=== PATIENT | male | born 1940 | race Caucasian/White ===

== ENCOUNTER 2019-02-08 16:39 | Emergency (ER) | payer OTHER, SELFPAY ==
[2019-02-08 16:50] VITALS: BP 131/71; PULSE 77; RESP 16; TEMP 37.2; O2SAT 97; BMI 26.4
--- NOTE | 2019-02-08 16:55 | DI.RAD.S_ITS ---
PROCEDURE: XR SHOULDER RT MIN 2V INDICATIONS: fall and hurt shoulder TECHNIQUE: 2 views of the shoulder were acquired. COMPARISON: None. FINDINGS: Bones: There is a comminuted, impacted, fracture of the proximal right humeral head. The humeral head is also anteriorly dislocated. Visualized portions of the ribs, scapula, and clavicle appear intact. Soft tissues: No suspicious soft tissue calcifications. IMPRESSION: Fracture dislocation of the right proximal humerus. Dictated by: Juana Carrillo M.D. on 02/08/2019 at 17:28 Approved by: Juana Carrillo M.D. on 02/08/2019 at 17:29
--- NOTE | 2019-02-08 17:03 | DI.CT.S_ITS ---
PROCEDURE: CT HEAD/BRAIN WO CON INDICATIONS: glf, thinners TECHNIQUE: Noncontrast 4.5 mm thick angled axial sections acquired from the foramen magnum to the vertex, with coronal and sagittal reformats. For radiation dose reduction, the following was used: automated exposure control, adjustment of mA and/or kV according to patient size. COMPARISON: None. FINDINGS: Image quality: Excellent. CSF spaces: Basal cisterns are patent. No extra-axial fluid collections. The ventricles are symmetric in size and shape. Brain: No intracranial bleeds or masses. There is cerebral volume loss for age, with resultant ventricular and sulcal prominence. There are periventricular and deep white matter chronic small vessel ischemic changes. There is intracranial internal carotid artery atherosclerosis. Skull and face: Calvarium and visualized facial bones appear intact, without suspicious lesions. Sinuses: Visualized sinuses and mastoids are clear. IMPRESSION: 1. No acute intracranial findings. 2. Findings likely associated with chronic microvascular ischemic change. Dictated by: Juana Carrillo M.D. on 02/08/2019 at 17:29 Approved by: Juana Carrillo M.D. on 02/08/2019 at 17:32
--- NOTE | 2019-02-08 17:21 | PC.NURSE ---
Transfer of care to EBONIE Corrales
[2019-02-08] MEDS: TET,DIPH,PERTUSS(ACELL),VAC/PF 0.5 ML SYRINGE IM (17:29)
[2019-02-08 18:07] LABS: Add Manual Diff / Slide Review NO; Basophils Absolute Auto 0 /uL (0-100); Basophils Percent Auto 0.2 % (0-2); Eosinophils Absolute Auto 100 /uL (0-450); Eosinophils Percent Auto 0.9 % (2-4); Hematocrit 43.5 % (41-53); Hemoglobin 14.9 g/dL (13.5-17.5); Lymphocytes Absolute Auto 600 /uL (1100-4500); Lymphocytes Percent Auto 7.7 % (25-40); Mean Corpuscular HGB Conc 34.2 % (30-36); Mean Corpuscular Hemoglobin 30.8 PG (26-34); Monocytes Absolute Auto 400 /uL (0-900); Monocytes Percent Auto 5.5 % (3-14); Neutrophils Absolute Auto 7000 /uL (1500-7000); Neutrophils Percent Auto 85.7 % (50-75); Platelet Count 142 X10^3/uL (150-400); Red Blood Cell Count 4.83 X10^6/uL (4.5-5.9); Red Cell Distribution Width 13.1 % (11.6-14.8); White Blood Cell Count 8.1 X10^3/uL (4.5-11.0)
[2019-02-08 18:12] LABS: Prothrombin Time 23.6 SECONDS (10.1-12.7)
[2019-02-08 18:14] LABS: PTT Partial Thromboplastin Tim 30 SECONDS (26.4-36.2)
[2019-02-08 18:19] LABS: Alanine Aminotransferase 30 IU/L (21-72); Albumin 4.6 g/dL (3.5-5.0); Albumin Globulin Ratio 1.5 (1.0-2.8); Alkaline Phosphatase 81 U/L (38-126); Aspartate Aminotransferase 31 IU/L (17-59); Bilirubin Total 0.8 mg/dL (0.2-1.3); Blood Urea Nitrogen 18 mg/dL (9-20); Calcium 9.6 mg/dL (8.4-10.2); Carbon Dioxide 30 mmol/L (22-32); Chloride 101 mmol/L (98-107); Estimated Glomerular Filt Rate 58.3 mL/min (>60); Glucose 106 mg/dL (80-110); HEMOLYSIS < 15 (0-50); Potassium 4.2 mmol/L (3.4-5.1); Sodium 140 mmol/L (137-145); Total Protein 7.6 g/dL (6.3-8.2)
[2019-02-08] MEDS: HYDROCODONE/ACET 5/325 TABLET 1 TAB PO (18:56)
[2019-02-08] MEDS: ONDANSETRON 4 MG ODT SL (18:56)
--- NOTE | 2019-02-08 19:33 | ED_ITS ---
HPI - Trauma <Denia AkhtarKUSH-BC - Last Filed: 02/08/19 21:29> General Chief Complaint: Extremity Injury, Upper Stated Complaint: Fall Time Seen by Provider: 02/08/19 16:52 Source: patient Mode of arrival: EMS Limitations: no limitations History of Present Illness HPI narrative: The patient is an 78-year-old male nonsmoker with history of cardiac stents on Coumadin who presents after falling down 1 step. He states he has some right shoulder pain, is not sure exactly what happened but states that he tripped. He states he had a mechanical fall. Denies any neck or back pain. He denies any obvious head injuries. He states he has cuts on his hands. He does not know when his last tetanus was. His primary complaint is shoulder pain. Given that the patient had a fall and is on Coumadin, a modified trauma was activated. Related Data Home Medications Medication Instructions Recorded Confirmed Glucosamine 1 tab PO BID 02/08/19 02/08/19 amlodipine 5 mg PO DAILY 02/08/19 02/08/19 cyclosporine [Restasis] 1 drp OPHTHALMIC (EYE) DIRECTED 02/08/19 02/08/19 gabapentin 300 mg PO DAILY 02/08/19 02/08/19 hydrocortisone 1 applic TOPICAL DIRECTED 02/08/19 02/08/19 levothyroxine 25 mcg PO DAILY 02/08/19 02/08/19 lovastatin 20 mg PO DAILY 02/08/19 02/08/19 metoprolol tartrate 25 mg PO BID 02/08/19 02/08/19 multivitamin 1 tab PO DAILY 02/08/19 02/08/19 omega 6-jdc-skv-fish oil [Fish Oil] 1 cap PO BID 02/08/19 02/08/19 pramipexole 0.125 mg PO BEDTIME 02/08/19 02/08/19 terazosin 10 mg PO BEDTIME 02/08/19 02/08/19 warfarin 5 mg PO SUTH 02/08/19 02/08/19 warfarin 7.5 mg PO MOTUWEFRSA 02/08/19 02/08/19 Previous Rx's Medication Instructions Recorded hydrocodone-acetaminophen [[place]] 1 tab PO Q4-6H PRN #10 tab 02/08/19 ondansetron 4 mg PO Q6H PRN #20 tab 02/08/19 Allergies Allergy/AdvReac Type Severity Reaction Status Date / Time No Known Drug Allergies Allergy Verified 02/08/19 18:55 Review of Systems <LUANN Navarro - Last Filed: 02/08/19 21:29> Review of Systems Narrative: GENERAL: Denies chills, fatigue, malaise, fever, sweats. HEENT: Denies sinus pain, ear pain, sore throat, difficulty swallowing, dizziness. RESPIRATORY: Denies dyspnea, cough, wheezing, hemoptysis, sputum. CARDIOVASCULAR: Denies chest pain, palpitations, orthopnea, edema, GASTROINTESTINAL: Denies nausea, vomiting, abdominal pain, diarrhea, constipation, melena. : Denies dysuria, frequency, incontinence, hematuria, urinary retention. MUSCULOSKELETAL: See HPI SKIN: See HPI NEUROLOGIC: Denies weakness, headache, numbness, change in speech, confusion, seizures, incoordination. PSYCHIATRIC: No concerning psychosocial issues. 12 point review of systems is negative except for those stated above Patient History <LUANN Navarro - Last Filed: 02/08/19 21:29> Medical History (Updated 02/08/19 @ 21:20 by LUANN Navarro) Hypertension (Acute) Surgical History (Updated 02/08/19 @ 21:20 by LUANN Navarro) History of heart artery stent (Acute) Exam <LUANN Navarro - Last Filed: 02/08/19 21:29> Narrative Exam Narrative: GENERAL: This is a well-nourished, well-developed patient, in no acute distress HEAD: Atraumatic. Normocephalic. No temporal or scalp tenderness. EYES: Pupils equal round and reactive. Extraocular motions intact. No scleral icterus. No injection or drainage. ENT: Nose without bleeding, purulent drainage or septal hematoma. Throat without erythema, tonsillar hypertrophy or exudate. Uvula midline. Airway patent. NECK: Trachea midline. No JVD or lymphadenopathy. Supple, nontender, no menin geal signs. CARDIOVASCULAR: Regular rate and rhythm RESPIRATORY: Clear to auscultation. Breath sounds equal bilaterally. No wheezes, rales, or rhonchi. No cough. No increased respiratory effort. No accessory muscle use. No pain to palpation of ribs. No pain to anterior posterior chest wall compression or lateral chest wall compression GASTROINTESTINAL: Abdomen soft, non-tender, nondistended. No hepato- splenomegaly, or palpable masses. No guarding. EXTREMITIES: Pain to palpation of right shoulder. No pain to palpation right elbow, wrist or hand. Full strength right hand. Able to flex and extend right wrist. BACK: Nontender without deformity or crepitance. No flank tenderness. No pain to CT or L-spine palpation. NEURO: AOx3. No slurred speech. Cranial nerves grossly intact. Strength is equal upper and lower extremities bilaterally. SKIN: No ecchymosis noted over right shoulder. Multiple abrasions noted on right hand. Finger has abrasion at hip, with 2 mm of nail removed. Initial Vital Signs Initial Vital Signs: Vital Signs Temperature 98.9 F 02/08/19 16:50 Pulse Rate 77 02/08/19 16:50 Respiratory Rate 16 02/08/19 16:50 Blood Pressure 131/71 02/08/19 16:50 Pulse Oximetry 97 02/08/19 16:50 <Dajuan Carroll MD - Last Filed: 02/19/19 18:20> Initial Vital Signs Initial Vital Signs: Vital Signs Temperature 98.9 F 02/08/19 16:50 Pulse Rate 77 02/08/19 16:50 Respiratory Rate 16 02/08/19 16:50 Blood Pressure 131/71 02/08/19 16:50 Pulse Oximetry 97 02/08/19 16:50 Procedures <LUANN Navarro - Last Filed: 02/08/19 21:29> Orthopedic Splinting/Casting Injury #1: Side: right Upper Extremity Injury Location: shoulder Upper Extremity Immobilizer: sling/shoulder immobilizer (Sling and coaptat ion splint) Post splinting neuro exam: intact Post splinting vascular exam: intact Placed by: Nursing Scores <LUANN Navarro - Last Filed: 02/08/19 21:29> GCS Crockett coma scale eye opening: Spontaneous Evette coma scale verbal response: Orientated Crockett coma scale motor response: Obey commands Crockett coma scale total score: 15 Nexus Score for C-Spine Focal Neurologic deficit present: No Midline spinal tenderness present: No Altered level of conciousness present: No Intoxication present: No Distracting Injury Present: No Nexus Criteria for C-spine: 0 Course <LUANN Navarro - Last Filed: 02/08/19 21:29> Orders Ordered: Discontinued Medications Hydrocodone Bitart/Acetaminophen ([place] 5/325) 1 tab PO NOW ONE Stop: 02/08/19 18:48 Last Admin: 02/08/19 18:56 Dose: 1 tab Documented by: ETELVINA Diphtheria/Tetanus/Acell Pertussis (Adacel) 0.5 ml IM .ONCE ONE Stop: 02/08/19 17:04 Last Admin: 02/08/19 17:29 Dose: 0.5 ml Documented by: MABLE Ondansetron HCl (Zofran Odt) 4 mg SL NOW ONE Stop: 02/08/19 18:48 Last Admin: 02/08/19 18:56 Dose: 4 mg Documented by: ETELVIAN Vital Signs Vital signs: Vital Signs - 8 hr 02/08/19 16:50 02/08/19 19:49 Temperature 98.9 F Pulse Rate 77 88 Respiratory Rate 16 12 Blood Pressure 131/71 143/84 H Pulse Oximetry 97 96 <Dajuan Carroll MD - Last Filed: 02/19/19 18:20> Orders Ordered: Discontinued Medications Hydrocodone Bitart/Acetaminophen ([place] 5/325) 1 tab PO NOW ONE Stop: 02/08/19 18:48 Last Admin: 02/08/19 18:56 Dose: 1 tab Documented by: ETELVINA Diphtheria/Tetanus/Acell Pertussis (Adacel) 0.5 ml IM .ONCE ONE Stop: 02/08/19 17:04 Last Admin: 02/08/19 17:29 Dose: 0.5 ml Documented by: MABLE Ondansetron HCl (Zofran Odt) 4 mg SL NOW ONE Stop: 02/08/19 18:48 Last Admin: 02/08/19 18:56 Dose: 4 mg Documented by: ETELVINA Vital Signs Vital signs: Vital Signs - 8 hr 02/08/19 16:50 02/08/19 19:49 Temperature 98.9 F Pulse Rate 77 88 Respiratory Rate 16 12 Blood Pressure 131/71 143/84 H Pulse Oximetry 97 96 MDM - Trauma <LUANN Navarro - Last Filed: 02/08/19 21:29> Lab Data Result diagrams: 02/08/19 17:58 02/08/19 17:58 Labs: Lab Results 02/08/19 02/08/19 02/08/19 Range/Units 17:58 17:58 17:58 WBC 8.1 (4.5-11.0) X10^3/uL RBC 4.83 (4.5-5.9) X10^6/uL Hgb 14.9 (13.5-17.5) g/dL Hct 43.5 (41-53) % MCV 90.0 (80-100) fL MCH 30.8 (26-34) PG MCHC 34.2 (30-36) % RDW 13.1 (11.6-14.8) % Plt Count 142 L (150-400) X10^3/uL Neut % (Auto) 85.7 H (50-75) % Lymph % (Auto) 7.7 L (25-40) % Harmon % (Auto) 5.5 (3-14) % Eos % (Auto) 0.9 L (2-4) % Baso % (Auto) 0.2 (0-2) % Neut # (Auto) 7000 (1400-4139) /uL Lymph # (Auto) 600 L (7000-7429) /uL Harmon # (Auto) 400 (0-900) /uL Eos # (Auto) 100 (0-450) /uL Baso # (Auto) 0 (0-100) /uL PT 23.6 H (10.1-12.7) SECONDS INR 2.0 H (0.9-1.3) APTT 30 (26.4-36.2) SECONDS Sodium 140 (137-145) mmol/L Potassium 4.2 (3.4-5.1) mmol/L Chloride 101 (98-107) mmol/L Carbon Dioxide 30 (22-32) mmol/L BUN 18 (9-20) mg/dL Creatinine 1.20 (0.66-1.25) mg/dL Estimated GFR 58.3 L (>60) mL/min BUN/Creatinine Ratio 15.0 (6-22) Glucose 106 (80-110) mg/dL Calcium 9.6 (8.4-10.2) mg/dL Total Bilirubin 0.8 (0.2-1.3) mg/dL AST 31 (17-59) IU/L ALT 30 (21-72) IU/L Alkaline Phosphatase 81 (38-126) U/L Total Protein 7.6 (6.3-8.2) g/dL Albumin 4.6 (3.5-5.0) g/dL Globulin 3.0 (1.7-4.1) g/dL Albumin/Globulin Ratio 1.5 (1.0-2.8) Imaging Data CT scan - head: Radiologist's impression: [address] [id number] [address] Scan Report Signed Patient: Patrice PenalozaMR#: [id number] : 9Acct:[id number] Age/Sex: 78 / MDate of Service: 02/08/19 Loc: ED Accession Number: [id number] Procedure: CT head/brain wo con Ordering Provider: Denia Akhtar [employer] NURSERY TRANSPLANTER- PROCEDURE: CT HEAD/BRAIN WO CON INDICATIONS: glf, thinners TECHNIQUE: Noncontrast 4.5 mm thick angled axial sections acquired from the foramen magnum to the vertex, with coronal and sagittal reformats. For radiation dose reduction, the following was used: automated exposure control, adjustment of mA and/or kV according to patient size. COMPARISON: None. FINDINGS: Image quality: Excellent. CSF spaces: Basal cisterns are patent. No extra-axial fluid collections. The ventricles are symmetric in size and shape. Brain: No intracranial bleeds or masses. There is cerebral volume loss for age, with resultant ventricular and sulcal prominence. There are periventricular and deep white matter chronic small vessel ischemic changes. There is intracranial internal carotid artery atherosclerosis. Skull and face: Calvarium and visualized facial bones appear intact, without suspicious lesions. Sinuses: Visualized sinuses and mastoids are clear. IMPRESSION: 1. No acute intracranial findings. 2. Findings likely associated with chronic microvascular ischemic change. Dictated by: Juana Carrillo M.D. on 02/08/2019 at 17:29 Approved by: Juana Carrillo M.D. on 02/08/2019 at 17:32 Shoulder x-ray: Radiologist's impression: [address] [address] XRay Report Signed Patient: Juliana Penaloza#: [id number] : 9Acct:[id number] Age/Sex: 78 / MDate of Service: 02/08/19 Loc: ED Accession Number: [id number] Procedure: XR shoulder RT min 2V Ordering Provider: Denia Akhtar PROCEDURE: XR SHOULDER RT MIN 2V INDICATIONS: fall and hurt shoulder TECHNIQUE: 2 views of the shoulder were acquired. COMPARISON: None. FINDINGS: Bones: There is a comminuted, impacted, fracture of the proximal right humeral head. The humeral head is also anteriorly dislocated. Visualized portions of the ribs, scapula, and clavicle appear intact. Soft tissues: No suspicious soft tissue calcifications. IMPRESSION: Fracture dislocation of the right proximal humerus. Dictated by: Juana Carrillo M.D. on 02/08/2019 at 17:28 Approved by: Juana Carrillo M.D. on 02/08/2019 at 17:29 MDM Narrative Medical decision making narrative: The patient is an 78-year-old male who presents with a chief complaint of injuries after a fall down 1 step. His C- spine was cleared by nexus criteria. Given that he is on Coumadin, a modified trauma was obtained. His head CT shows no acute abnormalities. The patient declines any further imaging at this point today. He states that nothing hurts compared to his shoulder. His INR is 2 today. His shoulder x-ray illustrate a comminuted impacted fracture of the proximal right humeral head with anterior dislocation. Images were reviewed with Dr. Carroll, who suggested splint and orthopedic follow-up. I spoke with Dr. Chin from [facility] who agrees with coaptation splint and orthopedic follow-up. I gave the patient a prescription of [place] as well as Zofran for pain. He is able to flex and extend his right hand and wrist. I discussed monitoring for decreased range of motion and was very explicit regarding resting his arm. He was in a sling. He is neurovascularly intact. His wounds were dressed and his tetanus is updated. I discussed at length follow up with primary care provider. The patient states understanding of return precautions of any acute concerns as well as follow-up instructions. He was discharged to his daughter and have no questions or concerns upon discharge and state understanding of return precautions as well as follow-up care. <Dajuan Carroll MD - Last Filed: 02/19/19 18:20> Lab Data Labs: Lab Results 02/08/19 02/08/19 02/08/19 Range/Units 17:58 17:58 17:58 WBC 8.1 (4.5-11.0) X10^3/uL RBC 4.83 (4.5-5.9) X10^6/uL Hgb 14.9 (13.5-17.5) g/dL Hct 43.5 (41-53) % MCV 90.0 (80-100) fL MCH 30.8 (26-34) PG MCHC 34.2 (30-36) % RDW 13.1 (11.6-14.8) % Plt Count 142 L (150-400) X10^3/uL Neut % (Auto) 85.7 H (50-75) % Lymph % (Auto) 7.7 L (25-40) % Harmon % (Auto) 5.5 (3-14) % Eos % (Auto) 0.9 L (2-4) % Baso % (Auto) 0.2 (0-2) % Neut # (Auto) 7000 (4613-4700) /uL Lymph # (Auto) 600 L (0495-6259) /uL Harmon # (Auto) 400 (0-900) /uL Eos # (Auto) 100 (0-450) /uL Baso # (Auto) 0 (0-100) /uL PT 23.6 H (10.1-12.7) SECONDS INR 2.0 H (0.9-1.3) APTT 30 (26.4-36.2) SECONDS Sodium 140 (137-145) mmol/L Potassium 4.2 (3.4-5.1) mmol/L Chloride 101 (98-107) mmol/L Carbon Dioxide 30 (22-32) mmol/L BUN 18 (9-20) mg/dL Creatinine 1.20 (0.66-1.25) mg/dL Estimated GFR 58.3 L (>60) mL/min BUN/Creatinine Ratio 15.0 (6-22) Glucose 106 (80-110) mg/dL Calcium 9.6 (8.4-10.2) mg/dL Total Bilirubin 0.8 (0.2-1.3) mg/dL AST 31 (17-59) IU/L ALT 30 (21-72) IU/L Alkaline Phosphatase 81 (38-126) U/L Total Protein 7.6 (6.3-8.2) g/dL Albumin 4.6 (3.5-5.0) g/dL Globulin 3.0 (1.7-4.1) g/dL Albumin/Globulin Ratio 1.5 (1.0-2.8) Discharge Plan Departure Patient Disposition: Home Clinical Impression: Abrasion Fall down stairs Qualifiers: Encounter type: initial encounter Qualified Code(s): W10.8XXA - Fall (on) (from) other stairs and steps, initial encounter Fracture, humerus Qualifiers: Encounter type: initial encounter Humerus Location: proximal Fracture type: closed Fracture morphology: other fracture Fracture alignment: displaced Laterality: left Qualified Code(s): S42.292A - Other displaced fracture of upper end of left humerus, initial encounter for closed fracture Discharge Date/Time: 02/08/19 19:50 Instructions: How to Use a Sling, DI for Fracture, How To Perform RICE (Rest, Ice, Compress, Elevate), How to Prevent Falls, How to Take Care of Your Splint, DI for Humeral Fracture Activity Restrictions/Additional Instructions: As I discussed, you broke your arm today. Please follow up with primary care provider as well as [facility]. Please keep your arm in the sling and splint. I spoke with Dr. Chin from [facility] today. Regarding your fracture today. Please follow up with primary care provider as well. I have given her prescription of [place], which can be constipating and sedating. I have also given her prescription of Zofran in case of nausea. Please come back to the emergency department for any acute concerns such as concerned about circulation to her hand, chest pain shortness of breath etc Prescriptions: New hydrocodone-acetaminophen [[place]] 5-325 mg tablet 1 tab PO Q4-6H PRN (Reason: pain) Qty: 10 RF: 0 ondansetron 4 mg tablet,disintegrating 4 mg PO Q6H PRN (Reason: nausea and vomiting) Qty: 20 RF: 0 No Action lovastatin 40 mg Tablet 20 mg PO DAILY RF: 0 warfarin 2.5 mg Tablet 7.5 mg PO MOTUWEFRSA RF: 0 amlodipine 5 mg Tablet 5 mg PO DAILY RF: 0 levothyroxine 25 mcg Tablet 25 mcg PO DAILY RF: 0 metoprolol tartrate 50 mg Tablet 25 mg PO BID RF: 0 pramipexole 0.125 mg Tablet 0.125 mg PO BEDTIME RF: 0 hydrocortisone 2.5 % Ointment 1 applic TOPICAL DIRECTED RF: 0 Restasis 0.05 % Dropperette 1 drp OPHTHALMIC (EYE) DIRECTED RF: 0 multivitamin Tablet 1 tab PO DAILY RF: 0 warfarin 2.5 mg Tablet 5 mg PO SUTH RF: 0 gabapentin 300 mg Capsule 300 mg PO DAILY RF: 0 terazosin 10 mg Capsule 10 mg PO BEDTIME RF: 0 omega 1-sbf-flp-fish oil [Fish Oil] 1,000 mg (120 mg-180 mg) Capsule 1 cap PO BID RF: 0 Glucosamine 1 tab PO BID RF: 0 Referrals: [facility] [Provider Group]
--- NOTE | 2019-02-08 19:47 | PC.NURSE ---
Bandaged patient's right middle finger with tube gauze. Bleeding controlled.
[2019-02-08 19:49] VITALS: BP 143/84; PULSE 88; RESP 12; O2SAT 96
== END 2019-02-08 19:50 | disposition home or self-care (01) ==
PROVIDERS: Emergency Provider Nurse Practitioner Family
DX: S42.292A Other displaced fracture of upper end of left humerus, initial encounter for closed fracture (principal); S60.511A Abrasion of right hand, initial encounter; S60.419A Abrasion of unspecified finger, initial encounter; W10.9XXA Fall (on) (from) unspecified stairs and steps, initial encounter; Z23 Encounter for immunization
CPT/HCPCS: 36415; 70450; 73030; 80053; 85025; 85610; 85730; 90471; 99282; 99284; 90715

== ENCOUNTER → 2019-03-20 14:21 | Outpatient (ROUT) | payer OTHER, SELFPAY ==
[2019-03-20 14:35] LABS: BUN Creatinine Ratio 11.8 (6-22); Blood Urea Nitrogen 13 mg/dL (9-20); Calcium 9.9 mg/dL (8.4-10.2); Carbon Dioxide 28 mmol/L (22-32); Chloride 103 mmol/L (98-107); Estimated Glomerular Filt Rate > 60.0 mL/min (>60); Glucose 72 mg/dL (80-110); HEMOLYSIS < 15 (0-50); Potassium 4.5 mmol/L (3.4-5.1); Sodium 142 mmol/L (137-145)
[2019-03-20 15:05] LABS: TSH w/ Reflex to FT4 0.96 uIU/mL (0.47-4.68)
[2019-03-20 15:33] LABS: Vitamin B12 650 pg/mL (239-931)
== END ==
PROVIDERS: Visit Provider Internal Medicine
DX: R20.0 Anesthesia of skin (principal)
CPT/HCPCS: 80048; 82607; 84443

== ENCOUNTER → 2019-04-26 11:00 | Outpatient (CLI) | payer MEDICARE, SELFPAY ==
--- NOTE | 2019-04-26 | DI.RAD.S_ITS ---
PROCEDURE: XR CERVICAL SPINE 2V OR 3V INDICATIONS: Cervicalgia TECHNIQUE: 4 view(s) of the cervical spine were acquired. COMPARISON: None. FINDINGS: Bones: No fractures or dislocations to the T1 level. The lateral masses of C1 appear intact on the odontoid view. No suspicious bony lesions. Loss of lordosis which could be related to muscle spasm, rigidity or simply positional. Multilevel disc degeneration, most notably and moderate at C5-C6, C6-C7 and C7-T1 levels. Mild multilevel uncovertebral hypertrophy. Soft tissues: No prevertebral soft tissue swelling. IMPRESSION: Multilevel spondylosis, most notably at the C5-C6, C6-C7 and C7-T1 levels. Dictated by: Jerson Jon [facility] Interpreted: Radha Jackson MD on 04/26/2019 at 16:40 Approved by: Radha Jackson MD, PhD on 04/26/2019 at 17:12
== END ==
PROVIDERS: PCP Student in an Organized Health Care Education/Training Program; Visit Provider Student in an Organized Health Care Education/Training Program
DX: M54.2 Cervicalgia (principal); M47.812 Spondylosis without myelopathy or radiculopathy, cervical region
CPT/HCPCS: 72040

== ENCOUNTER → 2020-07-03 12:11 | Outpatient (CLI) | payer OTHER, SELFPAY ==
--- NOTE | 2020-07-03 | DI.US.S_ITS ---
PROCEDURE: US ABDOMEN LIMITED INDICATIONS: INTERMITTENT LEFT GROIN LUMP TECHNIQUE: Real-time focused scanning was performed of the abdomen, with image documentation. COMPARISON: None. FINDINGS: There is a left groin hernia measuring 1.4 cm, and 4.8 x 1.4 x 2.5 cm fluid-filled bowel loop is seen within the hernia sac. IMPRESSION: Left groin hernia in the area of palpable abnormality, which contains a loop of bowel. This could be further assessed with dedicated CT as clinically necessary. Dictated by: Tate Payan M.D. on 07/03/2020 at 16:33 Approved by: Tate Payan M.D. on 07/03/2020 at 16:35
== END ==
PROVIDERS: PCP Student in an Organized Health Care Education/Training Program; Referring Provider Student in an Organized Health Care Education/Training Program; Visit Provider Student in an Organized Health Care Education/Training Program
DX: R19.09 Other intra-abdominal and pelvic swelling, mass and lump (principal); K46.9 Unspecified abdominal hernia without obstruction or gangrene
CPT/HCPCS: 76705

== ENCOUNTER → 2020-08-11 09:22 | Outpatient (CLI) | payer OTHER, SELFPAY ==
[2020-08-11 15:00] LABS: COVID19 -Nasal RAPID Negative (Negative)
== END ==
PROVIDERS: PCP Student in an Organized Health Care Education/Training Program; Visit Provider Specialist
DX: Z20.822 Contact with and (suspected) exposure to COVID-19 (principal)
CPT/HCPCS: 87635; C9803

== ENCOUNTER 2020-08-13 07:34 | Day surgery (SDC) | payer OTHER, SELFPAY ==
[2020-08-08 13:26] VITALS: BMI 24.4
[2020-08-13] VITALS (12 sets, daily range): BP systolic 119–138; BP diastolic 68–86; PULSE 73–797; RESP 12–18; TEMP 36.3–37; O2SAT 94–98; BMI 23.3
[2020-08-13] MEDS: LACTATED RINGERS 1,000 ML 42 ML IV (08:16)
--- NOTE | 2020-08-13 08:43 | PM.PREOP ---
Pre-operative Note COVID-19 COVID-19 status: Negative Result date/Date tested (Pos, Neg/Pending): 08/12/20 Interval Note History & Physical reviewed/Exam performed by Physician: Yes Changes to H&P: Yes H&P completed within 30 days and has changed as indicated here:: INR is 1.2
[2020-08-13] MEDS: CEFAZOLIN 2 GM/100 ML FROZ.PIGGY IV (08:50)
--- NOTE | 2020-08-13 09:16 | SUR.OPER ---
Supine on padded OR bed, head on pillow, arms secured on padded arm boards at <90 degrees abduction, legs uncrossed, safety belt at thigh, tape over blanket over lower legs.
[2020-08-13] MEDS: BUPIVACAINE 0.5% (PF) VIAL 30 ML INJ (09:22)
--- NOTE | 2020-08-13 11:11 | PM.OP.1 ---
Operative Date/Time/Diagnoses Date of procedure: 08/13/20 Time of procedure: 11:11 Pre-op diagnosis: Bilateral reducible inguinal hernias Post-op diagnosis: same (Direct hernias) Procedure & Clinicians Procedure: Open repair with plug and patch technique Same procedure as scheduled: Yes Indications: Symptomatic hernias Surgeon: Ritesh Soriano Click Yes if Unassisted: Yes Anesthesia Type: General Operative Notes Findings: Direct hernias Closure Type: primary Specimen(s): none sent Prosthetic devices, grafts, tissues, transplants, or devices: Mesh. Medium plug on the right. Large plug on the left Estimated Blood Loss (mL): 7 Blood products transfused: none Procedure in detail: Patient was placed supine on the operating room table and underwent general LMA anesthesia. He was prepped and draped in the usual fashion. Local anesthetic was infiltrated and a transverse incision made overlying the internal ring in the right lower quadrant. Was carried down to the level the external oblique. The external oblique was opened parallel with the fibers through the external ring. Cord structures were elevated. The cremaster was opened proximally and a search was made for an indirect sac. None was found. The floor however was quite obliterated and fat protruding up through. I opened the Gossom her thin floor and dissected the fat off the overlying tissues. The preperitoneal fat was reduced and a medium plug placed in the defect. Was tacked into place with interrupted Ethibond suture. The floor was closed over this plug with interrupted [id number] 0 0 Ethibond. Patch was placed across the floor. It was tacked to the pubic tubercle, the posterior lamella the anterior rectus sheath, the inguinal ligament, and superior and lateral the cord. External oblique was closed with a running 3-0 Vicryl. The subQ was closed with interrupted 3 0 Vicryl and the skin was closed with 4-0 Vicryl subcuticular stitches placed in a running fashion. A mirror incision was made in the left lower quadrant and in identical operation proceeded. The findings were nearly identical except there was more obliteration of the floor on the left than the right and therefore large plug was placed in the defect of the floor. Otherwise the operation proceeded identically. Closure was in an identical fashion. Local anesthetic was infiltrated at completion in both incisions. Mastisol and Steri-Strips were applied as was a dressing. Testes were pulled down and the patient was taken extubated into the recovery room in good condition. Complications: none Post-operative Condition: stable Disposition: PACU
[2020-08-13] MEDS: ONDANSETRON 4 MG/2 ML INJ IV (11:50)
[2020-08-13] MEDS: OXYCODONE/ACETAMINOPHEN 5/325 TABLET 1 TAB PO ×2 (11:53→12:28)
== END 2020-08-13 12:35 | disposition home or self-care (01) ==
PROVIDERS: PCP Student in an Organized Health Care Education/Training Program; Referring Provider Student in an Organized Health Care Education/Training Program; Visit Provider Specialist
PROC: (CPT 49505; principal; 2020-08-13 08:45)
DX: K40.20 Bilateral inguinal hernia, without obstruction or gangrene, not specified as recurrent (principal); I10 Essential (primary) hypertension; E03.9 Hypothyroidism, unspecified; I25.10 Atherosclerotic heart disease of native coronary artery without angina pectoris; Z79.01 Long term (current) use of anticoagulants
CPT/HCPCS: 49505; 85610; C1781; J0690; J2405; J2704; J3010

== ENCOUNTER 2020-08-14 22:17 | Emergency (ER) | payer OTHER, SELFPAY ==
[2020-08-14 22:38] VITALS: BP 133/68; PULSE 97; RESP 15; TEMP 37.1; O2SAT 96; BMI 23.7
[2020-08-14] MEDS: LIDOCAINE 2% (GLYDO) 6 ML GEL TOP (22:38)
--- NOTE | 2020-08-14 23:01 | ED_ITS ---
HPI - Male Genitourinary General Chief complaint: Urogenital-Male Stated complaint: unable to urinate s/p surgery Time Seen by Provider: 08/14/20 22:26 Source: patient Mode of arrival: Ambulatory Limitations: no limitations History of Present Illness HPI Narrative: 80-year-old gentleman with a history of hypertension, hypercholesterolemia, hypothyroidism with bilateral inguinal hernia repair yesterday. Presents with acute urinary retention and believes his last void was minimal and very early this morning. He is having increasing abdominal distention and pain. He notes that he has had a similar episode a number of years ago and did have a Pizarro catheter in place for approximately a week but has not otherwise had difficulties with his prostate. Related Data Home Medications Medication Instructions Recorded Confirmed Glucosamine 1 tab PO BID 02/08/19 08/08/20 Restasis 1 drp OPHTHALMIC (EYE) DIRECTED 02/08/19 08/08/20 amlodipine 5 mg PO DAILY 02/08/19 08/08/20 gabapentin 300 mg PO DAILY 02/08/19 08/08/20 hydrocortisone 1 applic TOPICAL DIRECTED 02/08/19 08/08/20 levothyroxine 25 mcg PO DAILY 02/08/19 08/08/20 lovastatin 20 mg PO DAILY 02/08/19 08/08/20 metoprolol tartrate 25 mg PO BID 02/08/19 08/08/20 multivitamin 1 tab PO DAILY 02/08/19 08/08/20 omega 4-vku-ldn-fish oil [Fish Oil] 1 cap PO BID 02/08/19 08/08/20 pramipexole 0.125 mg PO BEDTIME 02/08/19 08/08/20 terazosin 10 mg PO BEDTIME 02/08/19 08/08/20 Previous Rx's Medication Instructions Recorded oxycodone See Rx Instructions .ROUTE 08/13/20 .COMPLEX PRN #20 tab tamsulosin [Flomax] 0.4 mg PO DAILY #30 cap 08/14/20 Allergies Allergy/AdvReac Type Severity Reaction Status Date / Time No Known Drug Allergies Allergy Verified 08/13/20 08:16 Review of Systems Review of Systems Narrative: Pertinent positive and negative findings as per HPI Remainder of review of systems is otherwise unremarkable for Constitutional: Fevers, chills, weakness ENT: No sore throat, neck pain, ear pain CV: Chest pain, palpitations, dyspnea on exertion Respiratory: Cough, wheeze, dyspnea GI: Nausea, vomiting, diarrhea, Patient History Medical History Bilateral inguinal hernia without obstruction or gangrene Easy bruisability Fracture of head of right humerus (02/08/19) HLD (hyperlipidemia) HX: anticoagulation Hypertension Hypothyroidism Surgical History History of heart artery stent (~2003) Family History Mother Cancer Social History marital status: household members: spouse Smoking Status: Former smoker alcohol intake: never substance use type: does not use Smoking Status: Former smoker Substance Use Type: does not use Exam Narrative Exam Narrative: General: Alert appropriate in no acute distress Respiratory: Able to speak in full sentences, no obvious respiratory distress Skin: No obvious rashes, warm and dry Surgical sites are clean and dry. Abdomen is slightly distended and mildly tender in the suprapubic area. Neurologic: Grossly intact no obvious asymmetries or abnormalities Psych: appropriate insight and affect, cooperative Bladder scan at the bedside suggests greater than a L of fluid in the bladder Initial Vital Signs Initial Vital Signs: Vital Signs Temperature 98.7 F 08/14/20 22:38 Pulse Rate 97 H 08/14/20 22:38 Respiratory Rate 15 08/14/20 22:38 Blood Pressure 133/68 08/14/20 22:38 Pulse Oximetry 96 08/14/20 22:38 Course Orders Ordered: Discontinued Medications Lidocaine HCl (Lidocaine Jelly 2% 5 Ml) 1 applic TOP NOW ONE Stop: 08/14/20 22:33 Lidocaine HCl (Lidocaine 2% (Glydo) 6 Ml Gel) 6 ml TOP NOW ONE Stop: 08/14/20 22:37 Vital Signs Vital signs: Vital Signs - 8 hr 08/14/20 22:38 Temperature 98.7 F Pulse Rate 97 H Respiratory Rate 15 Blood Pressure 133/68 Pulse Oximetry 96 [facility] - Male Genitourinary Medical Records Attestation: I reviewed the patient's medical records. [facility] Narrative Medical decision making narrative: 80-year-old gentleman with acute urinary retention after surgical procedure yesterday. Pizarro catheter is placed without difficulty and 1650cc of clear urine is immediately returned. Distension and pain symptoms are significantly improved. He will be discharged home with Flomax daily and follow-up with his primary care physician to remove the catheter in about a week and discussed the continued use of Flomax. He is safe for home discharge Discharge Plan Departure Patient Disposition: Home Clinical Impression: Acute retention of urine Instructions: DI for Urinary Retention in Men Activity Restrictions/Additional Instructions: Thank you for coming in today It is not uncommon to have some prostate problems and urinary retention after surgery. You had 1650 cc of urine in your bladder when the Pizarro catheter was placed You have been given a dose of Flomax/tamsulosin in the emergency department. Please continue this medication to help reduce some of the inflammation in your prostate. Schedule an appointment with your primary care physician in about a week. They can help take the Pizarro catheter out. Being on the Flomax will increase the chances that you will be able to go to the bathroom spontaneously. Please discuss the continued use of Flomax with your primary care physician. If you have fevers, chills, back or flank pain, or note additional problems with the catheter, please feel free to return to the emergency department Prescriptions: New tamsulosin [Flomax] 0.4 mg capsule 0.4 mg PO DAILY Qty: 30 RF: 0 No Action lovastatin 40 mg Tablet 20 mg PO DAILY RF: 0 amlodipine 5 mg Tablet 5 mg PO DAILY RF: 0 levothyroxine 25 mcg Tablet 25 mcg PO DAILY RF: 0 metoprolol tartrate 50 mg Tablet 25 mg PO BID RF: 0 pramipexole 0.125 mg Tablet 0.125 mg PO BEDTIME RF: 0 hydrocortisone 2.5 % Ointment 1 applic TOPICAL DIRECTED RF: 0 Restasis 0.05 % Dropperette 1 drp OPHTHALMIC (EYE) DIRECTED RF: 0 multivitamin Tablet 1 tab PO DAILY RF: 0 gabapentin 300 mg Capsule 300 mg PO DAILY RF: 0 terazosin 10 mg Capsule 10 mg PO BEDTIME RF: 0 omega 8-qvl-rru-fish oil [Fish Oil] 1,000 mg (120 mg-180 mg) Capsule 1 cap PO BID RF: 0 Glucosamine 1 tab PO BID RF: 0 oxycodone 5 mg tablet See Rx Instructions .ROUTE .COMPLEX PRN (Reason: painful procedure) Qty: 20 RF: 0 Referrals: Rosi Jesus PA-C [Primary Care Provider] -
== END 2020-08-14 23:20 | disposition home or self-care (01) ==
PROVIDERS: Emergency Provider Emergency Medicine; PCP Student in an Organized Health Care Education/Training Program
DX: R33.8 Other retention of urine (principal)
CPT/HCPCS: 51701; 51798; 99283

== ENCOUNTER 2020-08-18 11:47 | Observation (INO) | payer OTHER, SELFPAY ==
[2020-08-18] VITALS (14 sets, daily range): BP systolic 109–146; BP diastolic 69–93; PULSE 71–87; RESP 15–25; TEMP 36.4–37.2; O2SAT 95–98; BMI 23.7; BMI 24.0
--- NOTE | 2020-08-18 | DI.US.S_ITS ---
PROCEDURE: US CAROTID DOPPLER BI INDICATIONS: ?CEREBRAL VASCULAR ACCIDENT TECHNIQUE: Color and pulse Doppler interrogation was performed of both carotid systems, with image documentation and velocity measurements. COMPARISON: None. FINDINGS: Stenosis calculations are based on SRU (Society of Radiologists in Ultrasound) criteria. Right side: Common carotid artery peak systolic velocity: 60 cm/sec. Internal carotid artery peak systolic velocity: 78 cm/sec. Internal carotid artery end diastolic velocity: 35 cm/sec. External carotid artery peak systolic velocity: 75 cm/sec. ICA/CCA peak systolic ratio: 1.3. Irvin scale imaging description: Mild scattered calcified atherosclerotic plaque is seen at the carotid bifurcation. Percent internal carotid artery stenosis: Less than 50 %. Vertebral artery: Flow direction is antegrade. Left side: Common carotid artery peak systolic velocity: 55 cm/sec. Internal carotid artery peak systolic velocity: 62 cm/sec. Internal carotid artery end diastolic velocity: 24 cm/sec. External carotid artery peak systolic velocity: 66 cm/sec. ICA/CCA peak systolic ratio: 1.1. Irvin scale imaging description: Mild calcified atherosclerotic plaque is seen in the common carotid artery and the carotid bifurcation. Percent internal carotid artery stenosis: Less than 50 %. Vertebral artery: Flow direction is antegrade. IMPRESSION: No hemodynamically significant stenosis in the carotid arteries bilaterally. Antegrade flow in the vertebral arteries. Dictated by: Gus Gonzales M.D. on 08/18/2020 at 19:04 Approved by: Gus Gonzales M.D. on 08/18/2020 at 19:08
--- NOTE | 2020-08-18 11:54 | ED.NEUROSD ---
HPI - Neuro Symptoms/Deficit General Chief Complaint: Neuro Symptoms/Deficit Stated Complaint: possible cva from walk in clinic Time Seen by Provider: 08/18/20 11:49 Source: patient Mode of arrival: Wheelchair Limitations: no limitations History of Present Illness HPI Narrative: 80-year-old male former smoker with history of AFib on Coumadin (recently stopped for a urologic procedure), hypertension, hyperlipidemia and prior cardiac disease presents from the walk-in clinic for evaluation of some blurry vision in his right eye. He denies any headache or neck pain. He denies any recent trauma. He denies any speech deficit. He denies any numbness, tingling or weakness of his extremities. He states that he had been in his normal state of health when he noticed some blurring of his peripheral vision in his right eye sometime yesterday but he thinks it probably got a little bit better and over the course of today his vision change is persistent. Patient is not activated as a code stroke given his symptoms of greater than 4.5 hours. Onset (ago): hour(s) Location: other History of same: No Severity: mild Relieving factors: none Exacerbating factors: none Context: other On Anticoagulants: Yes Associated symptoms: denies other symptoms Treatments Prior to Arrival: none Related Data Home Medications Medication Instructions Recorded Confirmed Glucosamine 1 tab PO BID 02/08/19 08/18/20 Restasis 1 drp OPHTHALMIC (EYE) DIRECTED 02/08/19 08/18/20 amlodipine 5 mg PO DAILY 02/08/19 08/18/20 gabapentin 300 mg PO DAILY 02/08/19 08/18/20 hydrocortisone 1 applic TOPICAL DIRECTED 02/08/19 08/18/20 levothyroxine 25 mcg PO DAILY 02/08/19 08/18/20 lovastatin 20 mg PO DAILY 02/08/19 08/18/20 metoprolol tartrate 25 mg PO BID 02/08/19 08/18/20 multivitamin 1 tab PO DAILY 02/08/19 08/18/20 omega 6-drp-bxq-fish oil [Fish Oil] 1 cap PO BID 02/08/19 08/18/20 pramipexole 0.125 mg PO BEDTIME 02/08/19 08/18/20 terazosin 10 mg PO BEDTIME 02/08/19 08/18/20 Previous Rx's Medication Instructions Recorded oxycodone See Rx Instructions .ROUTE 08/13/20 .COMPLEX PRN #20 tab tamsulosin [Flomax] 0.4 mg PO DAILY #30 cap 08/14/20 Allergies Allergy/AdvReac Type Severity Reaction Status Date / Time No Known Drug Allergies Allergy Verified 08/18/20 14:05 Review of Systems Constitutional Constitutional: Denies chills, Denies fatigue, Denies fever(s), Denies frequent falls, Denies lethargy and Denies weakness Eyes Eyes: Reports blurry vision, Reports change in vision, Denies eye discharge, Denies irritation, Reports loss of peripheral vision and Reports loss of vision ENT Ears, Nose, Mouth, and Throat: Denies change in voice, Reports dizziness, Denies neck pain, Denies sore throat and Denies throat swelling Cardiovascular Cardiovascular: Denies chest pain, Denies irregular heart rhythm, Denies lightheadedness, Denies palpitations, Denies dyspnea, Denies dyspnea on exertion and Denies orthopnea Respiratory Respiratory: Denies cough, Denies dyspnea, Denies dyspnea on exertion and Denies wheezing Gastrointestinal Gastrointestinal: Denies abdominal pain, Denies change in bowel habits, Denies diarrhea, Denies nausea and Denies vomiting Musculoskeletal Musculoskeletal: Denies neck pain and Denies numbness Integumentary/Breasts Skin/Breast: Denies pruritus, Denies erythema, Denies rash and Denies wounds Neurologic Neurologic: Denies behavioral changes, Denies confusion, Reports dizziness, Denies frequent falls, Reports loss of vision, Denies numbness and Denies weakness Psychiatric Psychiatric: Denies anxiety, Denies behavioral changes, Denies confusion, Denies depression, Denies homicidal ideation and Denies suicidal ideation Endocrine Endocrine: Denies fatigue, Denies flushing and Denies palpitations Hematologic/Lymphatic Hematologic/Lymphatic: Denies easy bruising On Anticoagulants: Yes Allergic/Immunologic Allergic/Immunologic: Denies urticaria, Denies throat swelling and Denies wheezing Patient History Medical History Bilateral inguinal hernia without obstruction or gangrene Easy bruisability Fracture of head of right humerus (02/08/19) HLD (hyperlipidemia) HX: anticoagulation Hypertension Hypothyroidism Surgical History History of heart artery stent (~2003) Family History Mother Cancer Social History marital status: household members: spouse Smoking Status: Former smoker alcohol intake: never substance use type: does not use Smoking Status: Former smoker Substance Use Type: does not use Exam Narrative Exam Narrative: GENERAL: [80] year old patient appears stated age. Well-nourished, well-developed patient, in mild distress. HEAD: Atraumatic. Normocephalic. EYES: Pupils equal round and reactive. Extraocular motions intact. No scleral icterus. No injection or drainage. ENT: Nose without bleeding, purulent drainage. Throat without erythema, tonsillar hypertrophy or exudate. Airway patent. NECK: Trachea midline. Non tender CARDIOVASCULAR: Irregular rate and rhythm without murmurs, gallops, or rubs. RESPIRATORY: Clear to auscultation. Breath sounds equal bilaterally. No wheezes, rales, or rhonchi. GASTROINTESTINAL: Abdomen soft, non-tender, nondistended. EXTREMITIES: No edema or joint tenderness. BACK: Nontender without deformity or crepitance. No flank tenderness. NEURO: AOx3. SKIN: No rash or erythema of visible areas Initial Vital Signs Initial Vital Signs: Vital Signs Temperature 98.0 F 08/18/20 11:55 Pulse Rate 86 08/18/20 11:55 Respiratory Rate 16 08/18/20 11:55 Blood Pressure 133/74 08/18/20 11:55 Pulse Oximetry 97 08/18/20 11:55 Scores NIH Stroke Scale Level of Conciousness: Alert, keenly responsive Ask month/age: Answers both questions correctly. Open/close eyes, close hand: Performs both tasks correctly Best gaze horizontal: Normal Visual guadalupe: Complete hemianopia Facial palsy: Normal symetrical movement Left arm drift: No drift for full 10 sec Right arm drift: No drift for full 10 sec Left leg drift: No drift for full 5 sec Right leg drift: No drift for full 5 sec Limb ataxia: Absent Sensory on face/arms/legs: Normal, no sensory loss Best language: No aphasia, normal Dysarthria: Normal Extinction or inattention: No abnormality Total NIH Stroke scale score: 2 Course Orders Ordered: ED Orders 08/18/20 11:54 CT Stroke Stat EKG-12 Lead Stat 08/18/20 12:00 Basic Metabolic Panel Stat Complete Blood Count AUTO DIFF Stat Partial Thromboplastin Time Stat Prothrombin Time INR Stat 08/18/20 12:35 Urine Drug Screen, Rapid Stat Urine Microscopic Stat 08/18/20 14:21 Education, smoking cessation ONGOING 08/18/20 14:30 COVID19 - ADMIT (FINAL ARMATURE TESTER swab/PCR) Stat 08/19/20 Basic Metabolic Panel Routine Complete Blood Count AUTO DIFF Routine Hemoglobin A1C% w Est Avg Glu Routine Magnesium Routine Acetaminophen (Acetaminophen 325 Mg Tablet) 650 mg PO Q6HR PRN PRN Reason: Fever/Mild Pain (1-3) Aspirin (Aspirin Ec 81 Mg Tablet) 81 mg PO DAILY [facility] Atorvastatin Calcium (Atorvastatin 20 Mg Tablet) 80 mg PO DAILY [facility] Enoxaparin Sodium (Enoxaparin 40 Mg/0.4 Ml Syringe) 40 mg 0.5 mg/kg (40 mg) SUBCUT DAILY [facility] Sodium Chloride (Normal Saline 0.9%) 1,000 mls @ 150 mls/hr IV CONT [facility] Last Admin: 08/18/20 12:30 Dose: 150 mls/hr Documented by: TORIN Sodium Chloride (Normal Saline 0.9%) 1,000 mls @ 100 mls/hr IV CONT [facility] Naloxone HCl (Naloxone 0.4 Mg/Ml Vial) 0.2 mg IV Q2MIN PRN PRN Reason: Opiate Reversal Warfarin Sodium (Warfarin 5 Mg Tablet) 5 mg PO SuTh@1700 [facility] Warfarin Sodium (Warfarin 5 Mg Tablet) 7.5 mg PO MoTuWeFrSa@1700 [facility] Discontinued Medications Aspirin (Aspirin 81 Mg Chew Tab) 324 mg PO NOW ONE Stop: 08/18/20 14:05 Last Admin: 08/18/20 14:11 Dose: 324 mg Documented by: CTRLEILANI Warfarin Sodium (Warfarin 5 Mg Tablet) 7.5 mg PO MOTUWEFRSA [facility] Vital Signs Vital signs: Vital Signs - 8 hr 08/18/20 11:55 08/18/20 12:06 08/18/20 12:30 Temperature 98.0 F Pulse Rate 86 87 79 Respiratory Rate 16 17 18 Blood Pressure 133/74 109/73 Pulse Oximetry 97 97 96 08/18/20 13:00 Temperature Pulse Rate 81 Respiratory Rate 18 Blood Pressure Pulse Oximetry 96 MDM - Neuro Symptoms/Deficit Lab Data Result diagrams: 08/18/20 12:00 08/18/20 12:00 Labs: Lab Results 08/18/20 08/18/20 08/18/20 Range/Units 12:00 12:00 12:00 WBC 7.1 (4.5-11.0) X10^3/uL RBC 4.81 (4.5-5.9) X10^6/uL Hgb 14.9 (13.5-17.5) g/dL Hct 43.3 (41-53) % MCV 90.1 (80-100) fL MCH 31.0 (26-34) PG MCHC 34.4 (30-36) % RDW 13.0 (11.6-14.8) % Plt Count 183 (150-400) X10^3/uL Neut % (Auto) 76.6 H (50-75) % Lymph % (Auto) 12.8 L (25-40) % Ray % (Auto) 7.8 (3-14) % Eos % (Auto) 2.3 (2-4) % Baso % (Auto) 0.5 (0-2) % Neut # (Auto) 5500 (6655-3962) /uL Lymph # (Auto) 900 L (2732-6871) /uL Ray # (Auto) 600 (0-900) /uL Eos # (Auto) 200 (0-450) /uL Baso # (Auto) 0 (0-100) /uL PT 15.1 H (10.1-12.7) SECONDS INR 1.3 (0.9-1.3) APTT 32 (26.4-36.2) SECONDS Sodium 142 (137-145) mmol/L Potassium 4.1 (3.4-5.1) mmol/L Chloride 105 (98-107) mmol/L Carbon Dioxide 29 (22-32) mmol/L BUN 15 (9-20) mg/dL Creatinine 0.93 (0.66-1.25) mg/dL Estimated GFR > 60.0 (>60) mL/min BUN/Creatinine Ratio 16.1 (6-22) Glucose 101 (80-110) mg/dL Calcium 9.9 (8.4-10.2) mg/dL Urine RBC (0-5/HPF) Urine WBC (0-5/HPF) Amorphous Sediment Urine Bacteria (None) Ur Culture Indicated? U Opiates 300ng/mL cut (Negative) Ur Oxycodone Screen (Negative) Urine Methadone Screen (Negative) Ur Barbiturates Screen (Negative) U Tricyclic Antidepress (Negative) Ur Phencyclidine Scrn (Negative) Ur Amphetamines Screen (Negative) U Methamphetamines Scrn (Negative) Ur MDMA Scrn (Ecstasy) (Negative) U Benzodiazepines Scrn (Negative) Urine Cocaine Screen (Negative) U Marijuana (THC) Screen (Negative) 08/18/20 08/18/20 Range/Units 12:35 12:35 WBC (4.5-11.0) X10^3/uL RBC (4.5-5.9) X10^6/uL Hgb (13.5-17.5) g/dL Hct (41-53) % MCV (80-100) fL MCH (26-34) PG MCHC (30-36) % RDW (11.6-14.8) % Plt Count (150-400) X10^3/uL Neut % (Auto) (50-75) % Lymph % (Auto) (25-40) % Ray % (Auto) (3-14) % Eos % (Auto) (2-4) % Baso % (Auto) (0-2) % Neut # (Auto) (1908-9524) /uL Lymph # (Auto) (5445-2660) /uL Ray # (Auto) (0-900) /uL Eos # (Auto) (0-450) /uL Baso # (Auto) (0-100) /uL PT (10.1-12.7) SECONDS INR (0.9-1.3) APTT (26.4-36.2) SECONDS Sodium (137-145) mmol/L Potassium (3.4-5.1) mmol/L Chloride (98-107) mmol/L Carbon Dioxide (22-32) mmol/L BUN (9-20) mg/dL Creatinine (0.66-1.25) mg/dL Estimated GFR (>60) mL/min BUN/Creatinine Ratio (6-22) Glucose (80-110) mg/dL Calcium (8.4-10.2) mg/dL Urine RBC 10-30/hpf H (0-5/HPF) Urine WBC 0-1/hpf (0-5/HPF) Amorphous Sediment 2+ Urine Bacteria None seen (None) Ur Culture Indicated? Cult not indicated U Opiates 300ng/mL cut Negative (Negative) Ur Oxycodone Screen Negative (Negative) Urine Methadone Screen Negative (Negative) Ur Barbiturates Screen Negative (Negative) U Tricyclic Antidepress Negative (Negative) Ur Phencyclidine Scrn Negative (Negative) Ur Amphetamines Screen Negative (Negative) U Methamphetamines Scrn Negative (Negative) Ur MDMA Scrn (Ecstasy) Negative (Negative) U Benzodiazepines Scrn Negative (Negative) Urine Cocaine Screen Negative (Negative) U Marijuana (THC) Screen Negative (Negative) Point of Care Testing Glucose POC 101 Urine Dip Bedside Urine Glucose Negative Bedside Urine Bilirubin - Negative Bedside Urine Ketone - Negative Urine Specific [place] 1.02 Bedside Urine Occult Blood +++ Bedside Urine pH 7.5 Bedside Urine Protein - Negative Bedside Urine Urobilinogen - Negative Bedside Urine Nitrite - Negative Bedside Urine Leukocytes - Negative Esterase Imaging Data CT scan - head: Radiologist's Impression: Chart Viewer Diagnostics DATE TYPE STATUS REF RANGE/AUTHOR Hx Today 11:54 Tate Payan 07/03/20 00:00 Tate Payan 04/26/19 00:00 Radha Jackson 02/08/19 17:03 Juana Carrillo 02/08/19 16:55 Juana Carrillo Michael A 80, M0 1940 [facility] ER, Main ED R06 182.88cm 79.379kg BMI: 23.7kg/m? Neuro Symptoms/Deficit Search Chart No Data to Display Total Incomplete ONSET Today 13:00 Patrice Penaloza 80 M [address] [id number] Scan ReportSigned Patient: Patrice Penaloza AMR#: [id number]: 9Acct:[id number]/Sex: 80 / MDate of Service: 08/18/20Loc: EDAccession Number: [id number] Procedure: CT Stroke Ordering Provider: Lars Hernández D.O. PROCEDURE: CT STROKE INDICATIONS: dizzy, vision change TECHNIQUE: Noncontrast 4.5 mm thick angled axial sections acquired from the foramen magnum to the vertex, with coronal reformats. For radiation dose reduction, the following was used: automated exposure control, adjustment of mA and/or kV according to patient size. COMPARISON: None. FINDINGS: Image quality: Excellent. CSF spaces: Basal cisterns are patent. No extra-axial fluid collections. The ventricles are symmetric in size and shape. Brain: No intracranial bleeds or masses. There is cerebral volume loss for age, with resultant ventricular and sulcal prominence. There are periventricular and deep white matter chronic small vessel ischemic changes. There is intracranial internal carotid artery atherosclerosis. Skull and face: Calvarium and visualized facial bones appear intact, without suspicious lesions. Sinuses: Visualized sinuses and mastoids are clear. IMPRESSION: No acute intracranial process. Findings (including all critical results, if any) and recommendations were personally telephoned and discussed with Dr. Hernández on 08-18-20 12:11 This study fulfills neurological imaging criteria for inclusion or exclusion of acute stroke therapies based on available published neurological guidelines. Dictated by: Tate Payan M.D. on 08/18/2020 at 12:08 Approved by: Tate Payan M.D. on 08/18/2020 at 12:12 Stroke Core Measures Exclusion Criteria TPA in CVA: Symptom Onset >3 or 4.5 Hours Discharge Plan Departure Patient Disposition: Admitted as Observation Clinical Impression: Stroke Qualifiers: CVA mechanism: unspecified Qualified Code(s): I63.9 - Cerebral infarction, unspecified Admit Date/Time: 08/18/20 15:08 Admit Provider: Christian Corrales
[2020-08-18 12:04] LABS: Add Manual Diff / Slide Review NO; Basophils Absolute Auto 0 /uL (0-100); Basophils Percent Auto 0.5 % (0-2); Eosinophils Absolute Auto 200 /uL (0-450); Eosinophils Percent Auto 2.3 % (2-4); Hematocrit 43.3 % (41-53); Hemoglobin 14.9 g/dL (13.5-17.5); Lymphocytes Absolute Auto 900 /uL (1100-4500); Lymphocytes Percent Auto 12.8 % (25-40); Mean Corpuscular HGB Conc 34.4 % (30-36); Mean Corpuscular Volume 90.1 fL (80-100); Monocytes Absolute Auto 600 /uL (0-900); Monocytes Percent Auto 7.8 % (3-14); Neutrophils Absolute Auto 5500 /uL (1500-7000); Neutrophils Percent Auto 76.6 % (50-75); Platelet Count 183 X10^3/uL (150-400); Red Blood Cell Count 4.81 X10^6/uL (4.5-5.9); White Blood Cell Count 7.1 X10^3/uL (4.5-11.0)
[2020-08-18 12:14] LABS: INR 1.3 (0.9-1.3); Prothrombin Time 15.1 SECONDS (10.1-12.7)
[2020-08-18 12:15] LABS: BUN Creatinine Ratio 16.1 (6-22); Blood Urea Nitrogen 15 mg/dL (9-20); Calcium 9.9 mg/dL (8.4-10.2); Carbon Dioxide 29 mmol/L (22-32); Chloride 105 mmol/L (98-107); Estimated Glomerular Filt Rate > 60.0 mL/min (>60); Glucose 101 mg/dL (80-110); HEMOLYSIS < 15 (0-50); Potassium 4.1 mmol/L (3.4-5.1); Sodium 142 mmol/L (137-145)
[2020-08-18 12:17] LABS: PTT Partial Thromboplastin Tim 32 SECONDS (26.4-36.2)
[2020-08-18] MEDS: SODIUM CHLORIDE 0.9% 1,000 ML 150 ML IV (12:30)
[2020-08-18 13:07] LABS: Bacteria Urine None Seen
[2020-08-18 13:28] LABS: Amorphous Sediment Urine 2+; Culture Indicated Urine Cult Not Indicated; RBC Urine 10-30/HPF (0-5/HPF); WBC Urine 0-1/HPF (0-5/HPF)
--- NOTE | 2020-08-18 13:39 | PC.NURSE ---
Pt has loss of his peripheral vision in his R eye, L eye is normal. 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 Clear speech. Steady gait. Occasional dizziness
[2020-08-18] MEDS: ASPIRIN 81 MG CHEW TAB 324 MG PO (14:11)
[2020-08-18 14:12] LABS: Ur Creatinine Normal (Normal); Ur Specific Gravity Normal (Normal)
[2020-08-18 14:13] LABS: UR Morphine/Opiate cutoff 300 Negative (Negative); Urine Amphetamines Negative (Negative); Urine Barbiturates Negative (Negative); Urine Benzodiazepines Negative (Negative); Urine Cocaine Negative (Negative); Urine MDMA Negative (Negative); Urine Methadone Negative (Negative); Urine Methamphetamines Negative (Negative); Urine Oxycodone Negative (Negative); Urine Phencyclidine Negative (Negative); Urine Tetrahydrocannabinol Negative (Negative); Urine Tricyclic Antidepressant Negative (Negative); Urine pH Normal (Normal)
[2020-08-18 16:11] LABS: COVID19 - ADMIT (NP swab/PCR) Negative (Negative)
--- NOTE | 2020-08-18 17:58 | PC.NURSE ---
Pt to room 208 via w/c - able to transfer to bed and bathroom with SBA. Denies pain, nausea, or shortness of breath. States peripheral vision to right eye has improved and less waviness. Alert and oriented x 4. No numbness or tingling-sensation and movement intact to all limbs. Pt oriented to room, call light, bed controls, and tv controls. Pt is currently having a carotid doppler.
[2020-08-18] MEDS: WARFARIN 5 MG TABLET 7.5 MG PO (18:40)
[2020-08-18] MEDS: SODIUM CHLORIDE 0.9% 1,000 ML 100 ML IV (18:40)
--- NOTE | 2020-08-18 18:47 | P.HP_ITS ---
History of Present Illness History of Present Illness Date Patient Seen: 08/18/20 Time Patient Seen: 14:47 Chief complaint: possible cva from walk in clinic Narrative: Mr. Penaloza is a 80M with PMH of afib on coumadin (recently held for hernia repair), recent urinary retention now with lora, HTN, HL, CAD who comes in with dizzines and blurry vision. Patient states his symptoms started yesterday early afternoon. He had no trauma. No headache, neck pain. No speech or swallow issues. No lateralizing weakness, or numbness. He notes the blurriness on the right side of his peripheral vision. No double vision. He thinks it has not changed since yesterday. In the ER, viatls were normal. Labs were unremarkable. CT head was done and did not show any acute process. He was outside the window for acute stroke management as he was approximately 24 hours since symptoms started. He was admitted for further treatment. Patient History Medical History Bilateral inguinal hernia without obstruction or gangrene Easy bruisability Fracture of head of right humerus (02/08/19) HLD (hyperlipidemia) HX: anticoagulation Hypertension Hypothyroidism Surgical History History of heart artery stent (~2003) Family & Social History Family History Mother Cancer Social History: household members spouse Safety & Behavioral: Feels Safe in Current Yes Environment Been Physically Hurt or No Threatened By a Person Tobacco & Substance use: Smoking Status Former smoker alcohol intake never Substance Use Type does not use Meds Home Medications and Allergies Home Medications Medication Instructions Recorded Confirmed Type Glucosamine 1 tab PO BID 02/08/19 08/18/20 History Restasis 1 drp OPHTHALMIC (EYE) DIRECTED 02/08/19 08/18/20 History amlodipine 5 mg PO DAILY 02/08/19 08/18/20 History hydrocortisone 1 applic TOPICAL DIRECTED 02/08/19 08/18/20 History levothyroxine 25 mcg PO DAILY 02/08/19 08/18/20 History lovastatin 20 mg PO DAILY 02/08/19 08/18/20 History metoprolol tartrate 25 mg PO BID 02/08/19 08/18/20 History multivitamin 1 tab PO DAILY 02/08/19 08/18/20 History omega 7-fze-kja-fish oil [Fish Oil] 1 cap PO BID 02/08/19 08/18/20 History pramipexole 0.125 mg PO BEDTIME 02/08/19 08/18/20 History terazosin 10 mg PO BEDTIME 02/08/19 08/18/20 History oxycodone See Rx Instructions .ROUTE 08/13/20 08/18/20 Rx .COMPLEX PRN #20 tab tamsulosin [Flomax] 0.4 mg PO DAILY #30 cap 08/14/20 08/18/20 Rx warfarin 5 mg PO QTUTHSU 08/18/20 08/18/20 History warfarin [Coumadin] 7.5 mg PO QMWFSA 08/18/20 08/18/20 History Allergies Allergy/AdvReac Type Severity Reaction Status Date / Time No Known Drug Allergies Allergy Verified 08/18/20 14:05 Review of Systems Review of Systems Narrative: 14 systems reviewed and negative aside from what is noted in HPI Exam Vital Signs (past 8 hours): - 08/18/20 11:55 08/18/20 12:06 08/18/20 12:30 Temperature 98.0 F Pulse Rate 86 87 79 Respiratory Rate 16 17 18 Blood Pressure 133/74 109/73 Pulse Oximetry 97 97 96 08/18/20 13:00 08/18/20 13:30 08/18/20 14:00 Temperature Pulse Rate 81 79 75 Respiratory Rate 18 15 18 Blood Pressure 126/69 138/80 Pulse Oximetry 96 96 98 08/18/20 14:30 08/18/20 15:00 08/18/20 15:01 Temperature Pulse Rate 76 80 76 Respiratory Rate 24 25 H 20 Blood Pressure 146/78 H 137/91 H Pulse Oximetry 96 96 08/18/20 15:30 08/18/20 17:00 08/18/20 17:15 Temperature 97.9 F Pulse Rate 74 82 71 Respiratory Rate 16 16 18 Blood Pressure 139/79 145/80 H 135/84 Pulse Oximetry 97 95 97 Oxygen Delivery Method Room Air Oxygen Flow Rate 0 Narrative Exam Narrative: GEN: no acute distress HEENT: moist mucous membranes, PERRL NECK: no JVD, trachea midline CV: regular rate and rhythm, no murmurs PULM: clear bilaterally ABD: soft, nontender, nondistended, no organomegaly EXT: warm and well perfused with no edema SKIN: no rashes NEURO: R side visual field loss on bilateral eyes, otherwise appreciate normal vision, EOM intact, cranial nerves 2-12 intact, normal upper and lower extremity strength PSYCH: pleasant, cooperative Objective Labs Result Diagrams: 08/18/20 12:00 08/18/20 12:00 Labs: Laboratory Results - last 24 hr 08/18/20 08/18/20 08/18/20 12:00 12:00 12:00 WBC 7.1 RBC 4.81 Hgb 14.9 Hct 43.3 MCV 90.1 MCH 31.0 MCHC 34.4 RDW 13.0 Plt Count 183 Neut % (Auto) 76.6 H Lymph % (Auto) 12.8 L [place] % (Auto) 7.8 Eos % (Auto) 2.3 Baso % (Auto) 0.5 Neut # (Auto) 5500 Lymph # (Auto) 900 L [place] # (Auto) 600 Eos # (Auto) 200 Baso # (Auto) 0 PT 15.1 H INR 1.3 APTT 32 Sodium 142 Potassium 4.1 Chloride 105 Carbon Dioxide 29 BUN 15 Creatinine 0.93 Estimated GFR > 60.0 BUN/Creatinine Ratio 16.1 Glucose 101 Calcium 9.9 Urine RBC Urine WBC Amorphous Sediment Urine Bacteria Ur Culture Indicated? U Opiates 300ng/mL cut Ur Oxycodone Screen Urine Methadone Screen Ur Barbiturates Screen U Tricyclic Antidepress Ur Phencyclidine Scrn Ur Amphetamines Screen U Methamphetamines Scrn Ur MDMA Scrn (Ecstasy) U Benzodiazepines Scrn Urine Cocaine Screen U Marijuana (THC) Screen SARS-CoV-2 (PCR) 08/18/20 08/18/20 08/18/20 12:35 12:35 14:30 WBC RBC Hgb Hct MCV MCH MCHC RDW Plt Count Neut % (Auto) Lymph % (Auto) [place] % (Auto) Eos % (Auto) Baso % (Auto) Neut # (Auto) Lymph # (Auto) [place] # (Auto) Eos # (Auto) Baso # (Auto) PT INR APTT Sodium Potassium Chloride Carbon Dioxide BUN Creatinine Estimated GFR BUN/Creatinine Ratio Glucose Calcium Urine RBC 10-30/hpf H Urine WBC 0-1/hpf Amorphous Sediment 2+ Urine Bacteria None seen Ur Culture Indicated? Cult not indicated U Opiates 300ng/mL cut Negative Ur Oxycodone Screen Negative Urine Methadone Screen Negative Ur Barbiturates Screen Negative U Tricyclic Antidepress Negative Ur Phencyclidine Scrn Negative Ur Amphetamines Screen Negative U Methamphetamines Scrn Negative Ur MDMA Scrn (Ecstasy) Negative U Benzodiazepines Scrn Negative Urine Cocaine Screen Negative U Marijuana (THC) Screen Negative SARS-CoV-2 (PCR) Negative Assessment & Plan Assessment & Plan narrative: 1. Acute vision loss, etiology unclear -concerning for possible CVA with R sided visual field loss -outside window for code stroke intervention, presented 24 hours after symptoms started -has been off his coumadin and is subtherapeutic, concerning for possible emboli sm -CT shows no acute process -ordered for carotid us, MRI, ECHO to further workup CVA -will need to continue on his coumadin as no evidence for bleeding -ordered for aspirin, and will continue statin -check lipids, and A1c 2. Atrial fibrillation, chronic, persistent -currently rate controlled -continue home dose of metoprolol -continue coumadin -ECHO ordered for above vision loss 3. Urinary retention, chronic -continue tamsulosin -lora in place 4. HTN, chronic -continue home medications 5. Hypothyroid, chronic -continue synthroid Code: DNR, proxy is franca Payton Diet: per nursing swallow screen IVF: none DVT ppx: lovenox, as INR subtherapeutic
--- NOTE | 2020-08-18 19:25 | DI.ECHO.S_ITS ---
[facility] +---------+ : : [address] : : : : [id number] : : : : Phone: [phone]+ Echocardiogram Report + + :Name: LORENZA CHAMBERS Study Date: 08/19/2020 Height: 72 in : :[facility] ReadingLocation: Weight: 177 lb : : Gender: Male BSA: 2.0 m2 : :: 1940 Age: 80 yrs BP: 140/68 mmHg: :Reason For Study: CVA : :Ordering Physician: : :FROYLAN LIN Performed By: Xu Mejia : :Referring: FROYLAN LIN : + + Interpretation Summary The patient was in atrial fibrillation with controlled ventricular rate during the exam. The left ventricle is normal in size. Left ventricular wall thickness is mildly increased. There is increased echo reflectance of myocardium. One of the differential diagnosis infiltrative cardiomyopathy like amyloidosis. The ejection fraction is estimated to be 55-60%. The right ventricle is normal in size and function. Both atria are severely dilated. There is mild to moderate mitral regurgitation. The aortic valve is moderately calcified. There is moderate to severely reduced leaflet mobility. The peak aortic velocity on the previous exam was 3.14 m/sec. The aortic valve mean gradient is 26 mmHg. The calculated aortic valve area is 1 cm2. There is moderate to severe aortic stenosis. There is mild to moderate tricuspid regurgitation. The right ventricular systolic pressure is estimated to be at least 46 mmHg based on an estimated right atrial pressure of 15 mm Hg. There is moderate pulmonary hypertension. Mild atherosclerotic plaque(s) in the aortic arch. Procedure: A two-dimensional transthoracic echocardiogram with color flow and Doppler was performed. The study quality was technically adequate. There is no prior echocardiogram noted for this patient. The patient was in atrial fibrillation with controlled ventricular rate during the exam. Left Ventricle: The left ventricle is normal in size. Left ventricular wall thickness is mildly increased. Proximal septal thickening is noted. There is no echo evidence for significant left ventricular outflow tract obstruction. There is no thrombus. Left ventricular systolic function is normal. The ejection fraction is estimated to be 55-60%. There are no focal wall motion abnormalities. Diastolic function could not be accurately assessed due to atrial fibrillation. Right Ventricle: The right ventricle is normal in size and function. Atria: The left atrium is severely dilated. Both atria are severely dilated. The right atrium is severely dilated. There is no Doppler evidence for an interatrial shunt. Mitral Valve: There is mild mitral annular calcification. The mitral valve leaflets are mildly calcified. There is mild to moderate mitral regurgitation. Aortic Valve: The aortic valve is moderately calcified. There is moderate to severely reduced leaflet mobility. There is moderate to severe aortic stenosis. The aortic valve mean gradient is 26 mmHg. The peak aortic velocity on the previous exam was 3.14 m/sec. The calculated aortic valve area is 1 cm2. No aortic regurgitation is present. Tricuspid Valve: The tricuspid valve is normal. There is mild to moderate tricuspid regurgitation. The right ventricular systolic pressure is estimated to be at least 46 mmHg based on an estimated right atrial pressure of 15 mm Hg. There is moderate pulmonary hypertension. Pulmonic Valve: The pulmonic valve is not well visualized. Great Vessels: The aortic root is normal size. The dimensions of the ascending aorta are normal. Mild atherosclerotic plaque(s) in the aortic arch. The IVC is dilated (diameter is greater than 2.1 cm) and it collapses less than 50% with a sniff. This suggests a high right atrial pressure of 15 mm Hg. Pericardium/ Pleura There is no pericardial effusion. There is no pleural effusion. MMode/2D Measurements & Calculations LVIDd: 4.5 cm LVOT diam: 2.1 cm LVIDs: 2.9 cm Ao root diam: 3.2 cm FS: 36.8 % asc Aorta Diam: 3.3 cm IVSd: 1.1 cm LVPWd: 1.0 cm LV asif. diameter/BSA (cm/m^2): 2.2 LV sys. diameter/BSA (cm/m^2): 1.4 LA A2 area: 33.3 cm2 RA long axis: 6.5 cm LA A4 area: 32.3 cm2 RA area: 28.7 cm2 LA length (vol): 7.0 cm RA vol: 107.1 ml LA vol: 130.2 ml RA : 52.9 ml/m2 LA vol index: 64.4 ml/m2 IVC diam: 2.7 cm RVD1 (basal): 3.3 cm TAPSE: 1.7 cm Doppler Measurements & Calculations Ao V2 max: 314.6 cm/sec LVOT Max Mau: 94.0 cm/sec Ao V2 mean: 247.0 cm/sec LV V1 max P.5 mmHg Ao max P.6 mmHg LV V1 VTI: 20.7 cm Ao mean P.3 mmHg RIRI(I,D): 1.0 cm2 Ao V2 VTI: 65.8 cm RIRI(V,D): 0.99 cm2 sev ratio: 0.32 RIRI indexed to BSA (cm^2/m^2): 0.52 Lat Peak E' Mau: 7.8 cm/sec TR max mau: 279.9 cm/sec TR max P.3 mmHg SV(LVOT): 68.9 ml Reading Physician:01:09 PM
[2020-08-18] MEDS: METOPROLOL IR 50 MG TABLET 25 MG PO (20:58)
[2020-08-18 22:22] LABS: Calcium Oxalate Crystals Urine Moderate; RBC Urine >100/HPF (0-5/HPF); WBC Urine 5-10/HPF (0-5/HPF)
[2020-08-18 22:23] LABS: Bacteria Urine Occasional (0-1); Culture Indicated Urine Specimen Cultured
--- NOTE | 2020-08-19 | DI.MRI.S_ITS ---
PROCEDURE: MR HEAD/BRAIN WO CON INDICATIONS: Vision change and dizziness, assess for cva TECHNIQUE: Non-contrast axial T1 spin echo, axial T2 fast spin echo, sagittal and axial FLAIR, coronal T2 fast spin echo, axial gradient echo, axial diffusion and ADC through the brain. COMPARISON: [facility], CT, CT STROKE, 08/18/2020, 12:00. FINDINGS: Image quality: Excellent. CSF spaces: Ventricles appear symmetric in size and shape. Basal cisterns are patent. No extra-axial fluid collections. Brain: No intracranial bleeds or mass effects. There is mild cerebral volume loss for age. There are mild periventricular and deep white matter chronic small vessel ischemic changes. Brainstem appears normal. Restricted diffusion noted in the medial aspect of the left occipital lobe compatible with acute infarct. No chronic ischemic insults. Normal intravascular flow voids are present. Skull and face: Calvarial bone marrow is normal in signal. Orbits are normal. Sinuses: Sinuses and mastoids are clear. IMPRESSION: 1. Small acute left occipital infarct. 2. Mild, diffuse cerebral volume loss. 3. Mild periventricular and subcortical white matter chronic microvascular ischemic change. 4. No intracranial hemorrhage. Dictated by: Radha Jackson MD, PhD on 08/19/2020 at 9:04 Approved by: Radha Jackson MD, PhD on 08/19/2020 at 9:07
[2020-08-19 04:22] VITALS: BP 140/68; PULSE 78; RESP 18; TEMP 36.5; O2SAT 95
[2020-08-19] MEDS: SODIUM CHLORIDE 0.9% 1,000 ML 100 ML IV (05:35)
[2020-08-19 07:01] LABS: Add Manual Diff / Slide Review NO; Basophils Absolute Auto 0 /uL (0-100); Basophils Percent Auto 0.7 % (0-2); Eosinophils Absolute Auto 200 /uL (0-450); Eosinophils Percent Auto 3.8 % (2-4); Hematocrit 41.6 % (41-53); Lymphocytes Absolute Auto 1100 /uL (1100-4500); Lymphocytes Percent Auto 17.8 % (25-40); Mean Corpuscular HGB Conc 33.7 % (30-36); Mean Corpuscular Hemoglobin 30.6 PG (26-34); Mean Corpuscular Volume 90.8 fL (80-100); Monocytes Absolute Auto 500 /uL (0-900); Monocytes Percent Auto 7.9 % (3-14); Neutrophils Absolute Auto 4100 /uL (1500-7000); Neutrophils Percent Auto 69.8 % (50-75); Platelet Count 160 X10^3/uL (150-400); Red Blood Cell Count 4.59 X10^6/uL (4.5-5.9); Red Cell Distribution Width 13.1 % (11.6-14.8); White Blood Cell Count 5.9 X10^3/uL (4.5-11.0)
[2020-08-19 07:10] LABS: BUN Creatinine Ratio 13.3 (6-22); Blood Urea Nitrogen 12 mg/dL (9-20); Calcium 9.2 mg/dL (8.4-10.2); Carbon Dioxide 29 mmol/L (22-32); Chloride 105 mmol/L (98-107); Estimated Glomerular Filt Rate > 60.0 mL/min (>60); Glucose 88 mg/dL (80-110); HEMOLYSIS < 15 (0-50); Magnesium 1.9 mg/dL (1.6-2.3); Potassium 4.3 mmol/L (3.4-5.1); Sodium 140 mmol/L (137-145)
[2020-08-19 07:25] VITALS: BP 139/95; PULSE 77; RESP 14; TEMP 36.3; O2SAT 97
[2020-08-19] MEDS: METOPROLOL IR 50 MG TABLET 25 MG PO (10:38)
[2020-08-19] MEDS: TAMSULOSIN 0.4 MG CAPSULE PO (10:38)
[2020-08-19] MEDS: LEVOTHYROXINE 25 MCG TABLET PO (10:38)
[2020-08-19] MEDS: ENOXAPARIN 40 MG/0.4 ML SYRINGE SUBCUT (10:39)
[2020-08-19] MEDS: AMLODIPINE 5 MG TABLET PO (10:40)
[2020-08-19] MEDS: ATORVASTATIN 20 MG TABLET 80 MG PO (10:40)
[2020-08-19] MEDS: ASPIRIN EC 81 MG TABLET PO (10:40)
[2020-08-19 11:03] LABS: Hemoglobin A1C% w Est Avg Glu 4.9 % (4.0-6.0)
[2020-08-19 11:25] VITALS: BP 128/74; PULSE 68; RESP 14; TEMP 36.9; O2SAT 97
--- NOTE | 2020-08-19 13:15 | PT.IIE ---
Surgical History (Last Reviewed 08/18/20 @ 18:50 by Christian Corrales MD) History of heart artery stent (~2003) Medical History (Last Reviewed 08/18/20 @ 18:50 by Christian Corrales MD) Bilateral inguinal hernia without obstruction or gangrene Easy bruisability Fracture of head of right humerus (02/08/19) HLD (hyperlipidemia) HX: anticoagulation Hypertension Hypothyroidism Physical Therapy Inpatient Evaluation/Re-Eval M1 PT/OT-IP Prior Functional Status Start: 08/19/20 14:43 Freq: NEEDED Status: Active Protocol: Document 08/19/20 13:15 AB (Rec: 08/19/20 14:54 AB [email or web address]) Medical Review Prior Functional Status Medical History Reviewed Yes Communication able to make needs known Mobility and Gait pt stated that he is independent with all mobilities and ambulation without AD Social History Household Members none Living Arrangements Half-Way Facility Number of Floors (Floors) One Floor Number of Stairs To Enter/Railing? pt stays on 1st floor of [facility] Home Environment High Toilet,Walk in Shower, Built-In Shower Seat,Elevator Home Equipment Hand Held Shower,Grab Bars Near Toilet,Grab Bars In Shower Additional Social History Comment pt stated that his just transferred to [facility] M2 PT-IP Current Condition Start: 08/19/20 14:43 Freq: NEEDED Status: Active Protocol: Document 08/19/20 13:15 AB (Rec: 08/19/20 14:54 AB [email or web address]) Physical Therapy Current Condition Current Condition Evaluation Date 08/19/20 Treatment Diagnosis CVA/L occipital lobe infarct; difficulty in walking Onset Date 08/18/20 M3 PT-IP Subjective Start: 08/19/20 14:43 Freq: NEEDED Status: Active Protocol: Document 08/19/20 13:15 AB (Rec: 08/19/20 14:54 AB [email or web address]) Subjective Physical Therapy Visit Type Type Initial Evaluation Visit Start Time 13:15 Visit Stop Time 13:35 Total Visit Minutes 20 Number of CHILD PSYCHIATRIST Visits 0 Physical Therapy Visit Comments Patient Comments pt is agreeable to do PT M4 PT-IP Mobility and Gait Start: 08/19/20 14:43 Freq: NEEDED Status: Active Protocol: Document 08/19/20 13:15 AB (Rec: 08/19/20 14:54 AB [email or web address]) PT-Bed Mobility Assessment Supine to Sit Supine to Sit Independent Sit to Supine Sit to Supine Independent Scooting Scooting to Edge of Bed Independent PT-Transfer Assessment Sit to and From Stand Sit to and from Stand Independent Equipment Transfer Assistive Device None,Gait Belt Orthotic/Prosthetic Devices or Brace: No Transfers Transfer Destination Chair Transfer Technique ambulated without AD Transfer Ability Level of Assist Independent Gait Assessment Gait Gait Assistance Required: Independent Distance (Feet) 175 Able to Maintain Weight Bearing Status Yes During Gait Assistive Devices Assistive Device None,Gait Belt Orthotic/Prosthetic Devices or Brace: No Comments Gait Comments has increase LLE external rotation but without LOB during ambulation; c/o decrease R peripheral vision loss and some L eye central vision bluriness but able to compensate during mobility and has not LOB and able to walk without AD PT-Balance Assessment Sitting Balance and Reactions Static Sitting Balance Ability Normal Dynamic Sitting Balance Ability Normal Standing Balance and Reactions Static Standing Balance Ability Good Dynamic Standing Balance Ability Good Device Used without AD Functional Assessments Functional Tests Tinetti Balance and Gait Assessment bal score: gait score: 02/20 total 26/28 Other Functional Tests Performed tinetti balance assessment: total score : 26/28 which relates to low fall risk M5 PT-IP Objective Assessments Start: 08/19/20 14:43 Freq: NEEDED Status: Active Protocol: Document 08/19/20 13:15 AB (Rec: 08/19/20 14:54 [email or web address]) Orientation Orientation/Cognition Level of Alertness Alert Orientation Name,Age,Birthday,Month,Date, Year,Day of Week,Place, Situation Language Function Ability No Deficits Noted Safety Awareness Understands Safety Issues Memory Description No Deficits Noted Gross Range of Motion Lower Extremity ROM Assessment Within Functional Limits Strength Lower Extremity Strength Assessment Within Functional Limits Coordination Assessment Gross Coordination Gross Coordination WNL Sensation Assessment Sensation Gross Sensation WNL Muscle Tone Muscle Tone WNL Yes M6 PT-IP Treatment Start: 08/19/20 14:43 Freq: NEEDED Status: Active Protocol: Document 08/19/20 13:15 AB (Rec: 08/19/20 14:54 [email or web address]) Physical Therapy Treatment Education Education Provided Safety M7 PT-IP Assessment and Plan Start: 08/19/20 14:43 Freq: NEEDED Status: Active Protocol: Document 08/19/20 13:15 AB (Rec: 05/11/21 14:54 AB [id number]) PT Summary Assessment and Plan Potential Rehabilitation Potential Good Summary Assessment Summary PT eval completed and no further PT intervention indicated at this time. pt is independent with bed mobility , transfers and ambulation without AD. c/o decrease vision but able to compensate and did not have any LOB during mobility. Pt may go home when medically stable. balance assessment completed and pt is at low risk of fall. Frequency of Treatment Frequency Of Treatment Discharge Recommendations To Nursing Amount of Assist Needed Standby Assistance Discharge Recommendations PT Discharge Recommendations Home Transportation Needs at Discharge Private Vehicle
[2020-08-19 14:18] LABS: Cholesterol 125 mg/dL (140-199); HDL Cholesterol 32 mg/dL (40-60); LDL Cholesterol Calculated 79 mg/dL (<100); Triglycerides 70 mg/dL (35-150)
--- NOTE | 2020-08-19 14:32 | OT.IP.EVAL ---
Past Medical History (Last Reviewed 08/18/20 @ 18:50 by Christian Corrales MD) Bilateral inguinal hernia without obstruction or gangrene Easy bruisability Fracture of head of right humerus (02/08/19) HLD (hyperlipidemia) HX: anticoagulation Hypertension Hypothyroidism Surgical History (Last Reviewed 08/18/20 @ 18:50 by Christian Corrales MD) History of heart artery stent (~2003) Occupational Therapy Inpatient Evaluation/Re-Eval M1 PT/OT-IP Prior Functional Status Start: 08/19/20 14:43 Freq: NEEDED Status: Active Protocol: Document 08/19/20 15:27 [facility] (Rec: 08/19/20 15:45 [facility] [id number]) Medical Review Prior Functional Status Medical History Reviewed Yes Communication able to make needs known Mobility and Gait pt stated that he is independent with all mobilities and ambulation without AD Activities of Daily Living and IADL's Pt lived at [facility] and has assist for medications, meals, and light cleaning. Pt states able to do all ADl's, pay his bills, and no longer drives. Social History Household Members none Living Arrangements Residential Facility Number of Floors (Floors) One Floor Number of Stairs To Enter/Railing? pt stays on 1st floor of [facility] Home Environment High Toilet,Walk in Shower, Built-In Shower Seat,Elevator Home Equipment Hand Held Shower,Grab Bars Near Toilet,Grab Bars In Shower Additional Social History Comment pt stated that his just transferred to [facility] this past Tue. M2 OT-IP Current Condition Start: 08/19/20 15:20 Freq: Status: Active Protocol: Document 08/19/20 15:27 [facility] (Rec: 08/19/20 15:45 [facility] [id number]) Occupational Therapy Current Condition Current Condition Evaluation Date 08/19/20 Treatment Diagnosis CVA, acute left occipital infarct. M3 OT- IP Subjective and Pain Start: 08/19/20 15:20 Freq: Status: Active Protocol: Document 08/19/20 15:27 [facility] (Rec: 08/19/20 15:45 [facility] [id number]) OT- Subjective Occupational Therapy Visit Type Type Initial Evaluation Visit Start Time 14:03 Visit Stop Time 14:32 Total Visit Minutes 29 Occupational Therapy Visit Comments Patient Comments Pt agreed to do OT eval. Patient/Caregiver Goals To go home. OT Pain Assessment Pain When Pain Assessed At Rest Pain Present Pain Present Denied Pain M4 OT- IP ADL's Start: 08/19/20 15:20 Freq: Status: Active Protocol: Document 08/19/20 15:27 [facility] (Rec: 08/19/20 15:45 [facility] [id number]) OT KYP-Pxtw-Gihpzls General Evaluation Self-Feeding Ability Independent OT ADL-Grooming General Evaluation Grooming Ability Independent OT ADL-Oral Care General Eval Oral Care Ability Independent OT ADL-Dressing General Eval Upper Body Dressing Ability Independent Lower Body Dressing Ability Independent OT ADL-Toileting General Evaluation Toileting Ability Independent OT ADL-Bathing Comments OT Bathing Comments Pt wanting to shower at home. M5 OT- IP IADL's Start: 08/19/20 15:20 Freq: Status: Active Protocol: Document 08/19/20 15:27 [facility] (Rec: 08/19/20 15:45 [facility] [id number]) OT-Instrumental Activities of Daily Living Home Safety Awareness Awareness of Need for Assistance at Home Good Awareness Ability to Problem Solve Emergency Able to Problem Solve Situations Medication Management Medication Management Caregiver Administers Medication Management Comments Nursing and therapist both agreed for pt to be more mindful of what medications he is taking and to keep track of it. Money Management Money Management Comments Suggested due to his decreased vision to get someone to assist and double check his accuracy when writing and paying his bills. Meal Preparation Meal Preparation Caregiver Provides Assist Head Concierge Head Concierge Caregiver Provides Assist M6 OT- IP Functional Cognition Start: 08/19/20 15:20 Freq: Status: Active Protocol: Document 08/19/20 15:27 [facility] (Rec: 08/19/20 15:45 [facility] [id number]) Cognitive Factors Limiting Selfcare Function Cognitive Ability Level of Alertness Alert Patient Orientation Name,Age,Birthday,Month,Date, Year,Day of Week,Place, Situation Attention Span Ability Capable of Focused Attention, Capable of Sustained Attention Ability to Follow Commands Able to Follow Multi-Step Commands Memory Description No Deficits Noted Safety Awareness No Deficits Noted Problem Solving Ability No deficits Noted Cognitive Comments Cognitive Assessment Comments Pt scored 96 seconds on Brusett Making Part B which implies mild deficits for visual attention, task switching, executive functioning, mental flexibility, and speed of processing. Pt score influence by his visual deficits on right eye peripheral vision and centrally on the left eye. Pt' s score ranks at 80% for his age. Pt educated to be more mindful to look to his right or even keep his head slight turn to the right to be able to accommodate seeing better. Pt also states to go see his eye doctor soon. OT- Vision and Hearing OT- Hearing Assessment OT- Hearing Assessment WFL OT- Vision Assessment Visual Acuity Glasses All The Time Visual Attentiveness WFL Occular Pursuits WFL Visual Tolbert Impaired Vision Assessment Comments Decreased vision on right peripheral vision of right eye and some decrease centrally on left eye. M7 OT- IP Mobility and Balance Start: 08/19/20 15:20 Freq: Status: Active Protocol: Document 08/19/20 15:27 [facility] (Rec: 08/19/20 15:45 [facility] [id number]) OT-Transfer Assessment Sit to and From Stand Sit to and from Stand Independent OT- Balance Assessment Sitting Balance and Reactions Static Sitting Balance Ability Normal Dynamic Sitting Balance Ability Normal Standing Balance and Reactions Static Standing Balance Ability Good M8 OT- IP Objective Assessments Start: 08/19/20 15:20 Freq: Status: Active Protocol: Document 08/19/20 15:27 [facility] (Rec: 08/19/20 15:45 [facility] [id number]) OT Gross Range of Motion Upper Extremity Range of Motion Assessment Within Functional Limits OT- Coordination Assessment Upper Extremity Finger to Nose Test Bilateral UE Impaired Comments Coordination Comments Right hand 22.5 sec. at 90%, Left hand 24 sec, better than 90% for his age. Pt having more difficulty in in hand manipulation with OT-Muscle Tone Assessment Muscle Tone WNL Yes OT Sensation Assessment Comments Summary Comments Right proprioception and kinesthesia decreased at right elbow distally. Educated pt to be aware where his body in in space when getting up at night or in general so not to bump his right side. M9 OT- IP Assessment and Plan Start: 08/19/20 15:20 Freq: Status: Active Protocol: Document 08/19/20 15:27 [facility] (Rec: 08/19/20 15:45 [facility] [id number]) OT Summary Assessment and Plan Potential Rehabilitation Potential Excellent Analytic Complexity at Evaluation Low Summary OT Impairments Coordination Progress Towards Goals Progressing Toward Goals Assessment Summary Pt low complexity and main deficits are decreased vision, mild decrease in fine motor skills of right hand and also for propriocption and kinesthesia. Pt has good understanding and follow through of techniques of having his head slightly turned to the right and to aware of object of the right side. Pt states to follow up with his eye doctor in the near future. Able to give pt suggestion for sleeping position as pt states at time his right arm gets numb while sleeping. Goals OT-Other Goals Pt to have good understand to vision and fms needs. Days to Meet Goals 1 Frequency of Treatment Frequency Of Treatment Once a Day Treatment Plan OT Treatment Plan Therapeutic Exercises,Vision Retraining,Patient/Family Education,Discharge Planning Other Treatment Recommendations and Next FMS, shower Treatment Focus Discharge Recommendations OT Discharge Recommendations Home with Assistance Transportation Needs at Discharge Private Vehicle
--- NOTE | 2020-08-19 16:30 | PC.NURSE ---
Report received, discharge orders written, care assumed 1530. A&Ox4. Dc'd tele, dc'd IV. Patient dressed. Discharge instructions given. Pt. discharged via wheelchair to private vehicle at 1627.
--- NOTE | 2020-08-19 17:05 | CM.DANOTE ---
DCP ASSESSMENT: Patient is an 80 year-old male admitted for a possible CVA with vision deficits that are new. PCP Rosi Hanley. Primary payer [employer] and self-pay. HEALTHCARE SPECIALIST Student met with patient at bedside he is alert and oriented. Educated patient on role of social work in discharge planning. He reported he is [place] [facility] and has minimal assistance for medication management and some meals. He is currently living alone as has recently transitioned to a Memory Care Facility. Therapy is recommending home without additional services. Spoke with Yolanda the nurse at [facility] . She anticipates being able to accept patient back to facility without an in-person interview. Called Yolanda at 1500 to inform her of patient D/C this afternoon. Spoke with Mr. Penaloza at 1430 he is aware of D/C from the hospital. He reported his friend Mr. Andres will pick him up and provide transportation.? PLAN: D/C home to [facility].?? MANUEL Bustillo MSW Student? Discharge Planning/Care Management CM Discharge Assessment Start: 08/19/20 10:03 Freq: Status: Discharge Protocol: Document 08/19/20 10:04 [facility] (Rec: 08/19/20 10:08 [facility] [id number]) Discharge Planning Assessment Assigned Water Safety Teacher MANUEL Ramirez Student Contact Information Tata Almodovar, Daughter Advance Directives? Yes Advance Directives on File No History Provided By Patient,Medical Record Has Patient been admitted in last 30 Yes days? Comment Hernia repair on 08/13/20 Prior Living Arrangements Intermediate Facility Comment Patient lives at [facility] Household Members none Type of transporation used prior to Relies on Others admit Facility Name Admitted From: [facility] Willing to Return to Facility? Yes: Spouse recently moved to [facility] Independent with ADL's Yes Is patient alert and oriented? Yes Needs Assistance With Meal Prep,Managing Medications Comment Patient has some assistance at [facility]: medication and some meals Caregiver for Another No Barriers to Discharge No Discharge Plan Assisted Living Facility Transportation Arrangement Will explore transportation options Whiteboard Updated in Patient Room with Yes name and ext. # of Water Safety Teacher Review Status In Process
== END 2020-08-19 16:27 | disposition home or self-care (01) ==
LOC: ED 15:02 → AC 15:09
PROVIDERS: Admitting Provider Internal Medicine; Emergency Provider Emergency Medicine; PCP Student in an Organized Health Care Education/Training Program; Referring Provider Emergency Medicine; Visit Provider Internal Medicine
DX: H53.8 Other visual disturbances (principal); I48.20 Chronic atrial fibrillation, unspecified; Z79.01 Long term (current) use of anticoagulants; I10 Essential (primary) hypertension; E78.5 Hyperlipidemia, unspecified; Z95.818 Presence of other cardiac implants and grafts; R33.9 Retention of urine, unspecified; Z96.0 Presence of urogenital implants; E03.9 Hypothyroidism, unspecified; Z20.822 Contact with and (suspected) exposure to COVID-19
CPT/HCPCS: 36415; 70450; 70551; 80048; 80061; 80305; 81003; 81015; 82962; 83036; 83735; 85025; 85610; 85730; 87086; 87635; 93005; 93010; 93306; 93880; 96360; 96361; 96372; 97161; 97165; 97530; 99285; C9803; G0378; J1650

== ENCOUNTER 2020-08-20 07:56 | Emergency (ER) | payer OTHER, SELFPAY ==
[2020-08-18 16:55] VITALS: BMI 24.0
[2020-08-20 07:59] VITALS: BP 146/83; PULSE 86; RESP 16; O2SAT 98; BMI 23.7
[2020-08-20 08:04] VITALS: BP 146/83; PULSE 84; O2SAT 98
--- NOTE | 2020-08-20 08:05 | ED_ITS ---
HPI - Neuro Symptoms/Deficit General Chief Complaint: Neuro Symptoms/Deficit Stated Complaint: seen 08/19 for mini stroke/visual changes increased Time Seen by Provider: 08/20/20 08:00 Source: patient Mode of arrival: Ambulatory Limitations: no limitations History of Present Illness HPI Narrative: 80-year-old male nonsmoker with history of AFib on Coumadin and hypertension presents with an evolution of his visual symptoms that brought him in a few days ago. He was seen and evaluated by myself and found to have a right-sided hemianopia and was admitted for stroke workup. His MRI showed a small occipital infarct and he was discharged yesterday. He states that over the course of the day he was in his normal state of health upon waking today the area of blurring vision in the right side of his field of view has gone from hazy and slightly transparent to black. He states that the the area of the visual deficit has not increased in size, only in severity. He denies any other neurologic symptoms such as trouble with speech, balance or weakness. He denies any injury, falls or fever. Related Data Home Medications Medication Instructions Recorded Confirmed Glucosamine 1 tab PO BID 02/08/19 08/18/20 Restasis 1 drp OPHTHALMIC (EYE) DIRECTED 02/08/19 08/18/20 amlodipine 5 mg PO DAILY 02/08/19 08/18/20 hydrocortisone 1 applic TOPICAL DIRECTED 02/08/19 08/18/20 levothyroxine 25 mcg PO DAILY 02/08/19 08/18/20 metoprolol tartrate 25 mg PO BID 02/08/19 08/18/20 multivitamin 1 tab PO DAILY 02/08/19 08/18/20 omega 5-koy-vky-fish oil [Fish Oil] 1 cap PO BID 02/08/19 08/18/20 pramipexole 0.125 mg PO BEDTIME 02/08/19 08/18/20 terazosin 10 mg PO BEDTIME 02/08/19 08/18/20 warfarin 5 mg PO QTUTHSU 08/18/20 08/18/20 warfarin 7.5 mg PO QMWFSA 08/18/20 08/18/20 Previous Rx's Medication Instructions Recorded oxycodone See Rx Instructions .ROUTE 08/13/20 .COMPLEX PRN #20 tab tamsulosin [Flomax] 0.4 mg PO DAILY #30 cap 08/14/20 aspirin 81 mg PO DAILY #30 tab 08/19/20 atorvastatin [Lipitor] 80 mg PO DAILY #120 tab 08/19/20 Allergies Allergy/AdvReac Type Severity Reaction Status Date / Time No Known Drug Allergies Allergy Verified 08/18/20 14:05 Review of Systems Constitutional Constitutional: Denies chills, Denies fatigue, Denies fever(s), Denies frequent falls, Denies lethargy and Denies weakness Eyes Eyes: Denies change in vision, Denies eye discharge, Denies irritation and Reports loss of vision ENT Ears, Nose, Mouth, and Throat: Denies change in voice, Denies dizziness, Denies neck pain, Denies sore throat and Denies throat swelling Cardiovascular Cardiovascular: Denies chest pain, Denies irregular heart rhythm, Denies lightheadedness, Denies palpitations, Denies dyspnea, Denies dyspnea on exertion and Denies orthopnea Respiratory Respiratory: Denies cough, Denies dyspnea, Denies dyspnea on exertion and Denies wheezing Gastrointestinal Gastrointestinal: Denies abdominal pain, Denies change in bowel habits, Denies diarrhea, Denies nausea and Denies vomiting Musculoskeletal Musculoskeletal: Denies neck pain and Denies numbness Integumentary/Breasts Skin/Breast: Denies pruritus, Denies erythema, Denies rash and Denies wounds Neurologic Neurologic: Denies behavioral changes, Denies confusion, Denies dizziness, Denies frequent falls, Reports loss of vision, Denies numbness and Denies weakness Psychiatric Psychiatric: Denies anxiety, Denies behavioral changes, Denies confusion, Denies depression, Denies homicidal ideation and Denies suicidal ideation Endocrine Endocrine: Denies fatigue, Denies flushing and Denies palpitations Hematologic/Lymphatic Hematologic/Lymphatic: Denies easy bruising Allergic/Immunologic Allergic/Immunologic: Denies urticaria, Denies throat swelling and Denies wheezing Patient History Medical History Bilateral inguinal hernia without obstruction or gangrene Easy bruisability Fracture of head of right humerus (02/08/19) HLD (hyperlipidemia) HX: anticoagulation Hypertension Hypothyroidism Surgical History History of heart artery stent (~2003) Family History Mother Cancer Social History marital status: household members: none Smoking Status: Former smoker alcohol intake: never substance use type: does not use Smoking Status: Former smoker Substance Use Type: does not use Exam Narrative Exam Narrative: GENERAL: [80] year old patient appears stated age. Well- nourished, well-developed patient, in mild distress. HEAD: Atraumatic. Normocephalic. EYES: Pupils equal round and reactive. Extraocular motions intact. No scleral icterus. No injection or drainage. ENT: Nose without bleeding, purulent drainage. Throat without erythema, tonsillar hypertrophy or exudate. Airway patent. NECK: Trachea midline. Non tender CARDIOVASCULAR: Regular rate and rhythm without murmurs, gallops, or rubs. RESPIRATORY: Clear to auscultation. Breath sounds equal bilaterally. No wheezes, rales, or rhonchi. GASTROINTESTINAL: Abdomen soft, non-tender, nondistended. EXTREMITIES: No edema or joint tenderness. BACK: Nontender without deformity or crepitance. No flank tenderness. NEURO: AOx3. SKIN: No rash or erythema of visible areas NIH Stroke Scale 1a. LOC: Patient is alert and keenly responsive (0) 1b. LOC Questions: Patient answers both LOC questions accurately (0) 1c. LOC Commands: Patient performs both tasks correctly (0) 2. Best Gaze: Normal (0) 3. Visual: No visual loss (1) 4. Facial palsy: Normal symmetrical movements (0) 5. Motor arm: No drift (0) 6. Motor leg: No drift (0) 7. Limb ataxia: Absent (0) 8. Sensory: Normal (0) 9. Best language: No aphasia; normal (0) 10. Dysarthria: Normal (0) 11. Extinction and inattention: No abnormality (0) NIHSS: 1 Initial Vital Signs Initial Vital Signs: Vital Signs Pulse Rate 86 08/20/20 07:59 Respiratory Rate 16 08/20/20 07:59 Blood Pressure 146/83 H 08/20/20 07:59 Pulse Oximetry 98 08/20/20 07:59 Course Course Course Narrative: On further discussion patient states that his symptoms likely started around 2:00 a.m. any states that the area of question was darker but that has since returned to his baseline and he currently has no symptoms. I have spoken with tele stroke and discussed the patient's recent history, current exam, CT scan findings and they state that he is certainly not a candidate for any intervention they do not recommend any change in medications or imaging or propose follow-up at this point time reassurance and planned follow-up only Patient treated as a code stroke given the possibility of waxing and waning symptoms. He is outside of any tPA window and does not demonstrate a history or physical that raises suspicion for the possibility of a large vessel occlusion Orders Ordered: ED Orders 08/20/20 08:18 CT Stroke Stat 08/20/20 08:46 Basic Metabolic Panel Stat Complete Blood Count AUTO DIFF Stat Prothrombin Time INR Stat Vital Signs Vital signs: Vital Signs - 8 hr 08/20/20 07:59 08/20/20 08:04 Pulse Rate 86 84 Respiratory Rate 16 Blood Pressure 146/83 H 146/83 H Pulse Oximetry 98 98 MDM - Neuro Symptoms/Deficit Lab Data Result diagrams: 08/20/20 08:46 08/20/20 08:46 Labs: Lab Results 08/20/20 08/20/20 08/20/20 Range/Units 08:46 08:46 08:46 WBC 6.0 (4.5-11.0) X10^3/uL RBC 4.24 L (4.5-5.9) X10^6/uL Hgb 13.2 L (13.5-17.5) g/dL Hct 37.9 L (41-53) % MCV 89.3 (80-100) fL MCH 31.1 (26-34) PG MCHC 34.8 (30-36) % RDW 13.0 (11.6-14.8) % Plt Count 156 (150-400) X10^3/uL Neut % (Auto) 75.5 H (50-75) % Lymph % (Auto) 11.8 L (25-40) % Graves % (Auto) 9.3 (3-14) % Eos % (Auto) 2.7 (2-4) % Baso % (Auto) 0.7 (0-2) % Neut # (Auto) 4500 (1808-9955) /uL Lymph # (Auto) 700 L (3044-8361) /uL Graves # (Auto) 600 (0-900) /uL Eos # (Auto) 200 (0-450) /uL Baso # (Auto) 0 (0-100) /uL PT 21.2 H D (10.1-12.7) SECONDS INR 1.8 H (0.9-1.3) Sodium 141 (137-145) mmol/L Potassium 4.0 (3.4-5.1) mmol/L Chloride 107 (98-107) mmol/L Carbon Dioxide 28 (22-32) mmol/L BUN 14 (9-20) mg/dL Creatinine 0.90 (0.66-1.25) mg/dL Estimated GFR > 60.0 (>60) mL/min BUN/Creatinine Ratio 15.6 (6-22) Glucose 100 (80-110) mg/dL Calcium 9.4 (8.4-10.2) mg/dL Imaging Data CT scan - head: Radiologist's Impression: [address] [id number] Scan ReportSigned Patient: Patrice Penaloza AMR#: [id number]: 1940cct:[id number]/Sex: 80 / MDate of Service: 08/20/20Loc: EDAccession Number: [id number] Procedure: CT Stroke Ordering Provider: Lars Hernández D.O. PROCEDURE: CT STROKE INDICATIONS: worsening stroke symptoms TECHNIQUE: Noncontrast 4.5 mm thick angled axial sections acquired from the foramen magnum to the vertex, with coronal reformats. For radiation dose reduction, the following was used: automated exposure control, adjustment of mA and/or kV according to patient size. COMPARISON: [facility], CT, CT STROKE, 08/18/2020, 12:00. FINDINGS: Image quality: Excellent. CSF spaces: Basal cisterns are patent. No extra-axial fluid collections. The ventricles are symmetric in size and shape. Brain: No intracranial bleeds or masses. There is cerebral volume loss for age, with resultant ventricular and sulcal prominence. There are periventricular and deep white matter chronic small vessel ischemic changes. There is intracranial internal carotid artery atherosclerosis. Skull and face: Calvarium and visualized facial bones appear intact, without suspicious lesions. Sinuses: Visualized sinuses and mastoids are clear. IMPRESSION: Normal for age, no contraindication to tPA administration is found. Note: This information was immediately called to the emergency room physician caring for the patient at 8:27 a.m. This study fulfills neurological imaging criteria for inclusion or exclusion of acute stroke therapies based on available published neurological guidelines. Dictated by: Vamshi Lawrence M.D. on 08/20/2020 at 8:27 Approved by: Vamshi Lawrence M.D. on 08/20/2020 at 8:34 Discharge Plan Departure Patient Disposition: Home Clinical Impression: Alteration in vision Instructions: DI for Stroke-Ischemic Activity Restrictions/Additional Instructions: *You have been diagnosed with [episode of vision change, likely a consequence of your recent stroke. I have discussed your case with the on-call stroke neurologist and there are no recommendations for change in medications or further diagnostics at this point] *What to do: *Please continue to take your regular medications as directed. [ ] New medication prescriptions sent to your pharmacy: [ ] [ ] New medication written as a paper prescription [x] No new medications given *Please follow up with your primary care provider in 2-3 days, call for an appointment. Let them know you were seen in the Emergency Department and that we ask that you be seen in follow up. We will electronically transmit a record of today's note if your PCP is in our system *Return to Emergency Department if you should have any new, worsening or concerning symptoms, such as [fever greater than 101 F, shaking chills, wor sening pain, persistent vomiting, worsening vision change, other neurologic symptoms such as numbness, tingling, weakness, confusion, balance issues or other bothersome symptoms] Prescriptions: No Action tamsulosin [Flomax] 0.4 mg capsule 0.4 mg PO DAILY Qty: 30 RF: 0 amlodipine 5 mg Tablet 5 mg PO DAILY RF: 0 levothyroxine 25 mcg Tablet 25 mcg PO DAILY RF: 0 metoprolol tartrate 50 mg Tablet 25 mg PO BID RF: 0 pramipexole 0.125 mg Tablet 0.125 mg PO BEDTIME RF: 0 hydrocortisone 2.5 % Ointment 1 applic TOPICAL DIRECTED RF: 0 Restasis 0.05 % Dropperette 1 drp OPHTHALMIC (EYE) DIRECTED RF: 0 multivitamin Tablet 1 tab PO DAILY RF: 0 terazosin 10 mg Capsule 10 mg PO BEDTIME RF: 0 omega 5-fbd-vis-fish oil [Fish Oil] 1,000 mg (120 mg-180 mg) Capsule 1 cap PO BID RF: 0 Glucosamine 1 tab PO BID RF: 0 oxycodone 5 mg tablet See Rx Instructions .ROUTE .COMPLEX PRN (Reason: painful procedure) Qty: 20 RF: 0 warfarin 7.5 mg Tablet 7.5 mg PO QMWFSA RF: 0 warfarin 5 mg Tablet 5 mg PO QTUTHSU RF: 0 atorvastatin [Lipitor] 20 mg Tablet 80 mg PO DAILY Qty: 120 RF: 0 aspirin 81 mg Tablet,Delayed Release (Dr/Ec) 81 mg PO DAILY Qty: 30 RF: 0 Referrals: Rosi Jesus PA-C [Primary Care Provider] -
--- NOTE | 2020-08-20 08:18 | DI.CT.S_ITS ---
PROCEDURE: CT STROKE INDICATIONS: worsening stroke symptoms TECHNIQUE: Noncontrast 4.5 mm thick angled axial sections acquired from the foramen magnum to the vertex, with coronal reformats. For radiation dose reduction, the following was used: automated exposure control, adjustment of mA and/or kV according to patient size. COMPARISON: [facility], CT, CT STROKE, 08/18/2020, 12:00. FINDINGS: Image quality: Excellent. CSF spaces: Basal cisterns are patent. No extra-axial fluid collections. The ventricles are symmetric in size and shape. Brain: No intracranial bleeds or masses. There is cerebral volume loss for age, with resultant ventricular and sulcal prominence. There are periventricular and deep white matter chronic small vessel ischemic changes. There is intracranial internal carotid artery atherosclerosis. Skull and face: Calvarium and visualized facial bones appear intact, without suspicious lesions. Sinuses: Visualized sinuses and mastoids are clear. IMPRESSION: Normal for age, no contraindication to tPA administration is found. Note: This information was immediately called to the emergency room physician caring for the patient at 8:27 a.m. This study fulfills neurological imaging criteria for inclusion or exclusion of acute stroke therapies based on available published neurological guidelines. Dictated by: Vamshi Lawrence M.D. on 08/20/2020 at 8:27 Approved by: Vamshi Lawrence M.D. on 08/20/2020 at 8:34
--- NOTE | 2020-08-20 08:19 | PC.NURSE ---
calling telestroke for consult.
[2020-08-20 08:53] LABS: Add Manual Diff / Slide Review NO; Basophils Absolute Auto 0 /uL (0-100); Basophils Percent Auto 0.7 % (0-2); Eosinophils Absolute Auto 200 /uL (0-450); Eosinophils Percent Auto 2.7 % (2-4); Hematocrit 37.9 % (41-53); Hemoglobin 13.2 g/dL (13.5-17.5); Lymphocytes Absolute Auto 700 /uL (1100-4500); Lymphocytes Percent Auto 11.8 % (25-40); Mean Corpuscular HGB Conc 34.8 % (30-36); Mean Corpuscular Hemoglobin 31.1 PG (26-34); Mean Corpuscular Volume 89.3 fL (80-100); Monocytes Absolute Auto 600 /uL (0-900); Monocytes Percent Auto 9.3 % (3-14); Neutrophils Absolute Auto 4500 /uL (1500-7000); Neutrophils Percent Auto 75.5 % (50-75); Platelet Count 156 X10^3/uL (150-400); Red Blood Cell Count 4.24 X10^6/uL (4.5-5.9)
[2020-08-20 09:07] LABS: INR 1.8 (0.9-1.3); Prothrombin Time 21.2 SECONDS (10.1-12.7)
[2020-08-20 09:12] LABS: BUN Creatinine Ratio 15.6 (6-22); Blood Urea Nitrogen 14 mg/dL (9-20); Calcium 9.4 mg/dL (8.4-10.2); Carbon Dioxide 28 mmol/L (22-32); Chloride 107 mmol/L (98-107); Estimated Glomerular Filt Rate > 60.0 mL/min (>60); Glucose 100 mg/dL (80-110); HEMOLYSIS < 15 (0-50); Sodium 141 mmol/L (137-145)
[2020-08-20 10:02] VITALS: BP 138/71; RESP 16; O2SAT 98
--- NOTE | 2020-08-20 22:21 | P.DS_ITS ---
History of Present Illness History of Present Illness Chief complaint: seen 08/19 for mini stroke/visual changes increased Narrative: Mr. Penaloza is a 80M with PMH of afib on coumadin (recently held for hernia repair), recent urinary retention now with lora, HTN, HL, CAD who comes in with dizzines and blurry vision. Patient states his symptoms started yesterday early afternoon. He had no trauma. No headache, neck pain. No speech or swallow issues. No lateralizing weakness, or numbness. He notes the blurriness on the right side of his peripheral vision. No double vision. He thinks it has not changed since yesterday. In the ER, viatls were normal. Labs were unremarkable. CT head was done and did not show any acute process. He was outside the window for acute stroke management as he was approximately 24 hours since symptoms started. He was admitted for further treatment. Discharge Providers Provider Discharge Date: 08/19/20 Primary care physician: Rosi Jesus PA-C Discharge provider: Christian Corrales MD Summary Hospital Course Discharge Diagnosis: 1. 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 Atrial fibrillation, persistent, chronic 3. Urinary retention, chronic 4. Hypertension, chronic 5. Hypothyroid, chronic 6. Aortic stenosis, moderate Hospital Course: Mr. Penaloza came in initially with vision loss that was noted to be in his bilateral eyes in the right visual field. He had no other neurologic symptoms. He had workup done that showed an occipital CVA, that was small. He had presented outside the window for acute intervention. Further workup was done that showed on ECHO he had moderate to severe aortic stenosis with RIRI of 1cm, he did not have any shortness of breath, dizzines, or chest pain here. He was also noted to have increased reflectance of mycoardium of unclear etiology, but possibly of amyloidosis. He was started on aspirin and his atorvastatin was increased. He worked with physical therapy and did well. He had no significantly elevated lipids. Normal A1c and his blood pressure was controlled. He did have recent diagnosis of urinary retention and will need to follow up as an outpatient with urology. He was recommended to follow up with cardiology for his aortic stenosis and other ECHO findings. Code: DNR, proxy is franca Payton Diet: per nursing swallow screen IVF: none DVT ppx: lovenox, as INR subtherapeutic Status at Discharge Cognitive/behavioral status at discharge: oriented Functional status at discharge: independent ambulation Overall status at discharge: patient is progressing back to baseline Exam Vital Signs (past 8 hours): Oxygen Delivery Method Room Air Narrative Exam Narrative: GEN: no acute distress HEENT: moist mucous membranes, PERRL NECK: no JVD, trachea midline CV: regular rate and rhythm, no murmurs PULM: clear bilaterally ABD: soft, nontender, nondistended, no organomegaly EXT: warm and well perfused with no edema SKIN: no rashes NEURO: R side visual field loss on bilateral eyes, otherwise appreciate normal vision, EOM intact, cranial nerves 2-12 intact, normal upper and lower extremity strength PSYCH: pleasant, cooperative Objective Labs Result Diagrams: 08/20/20 08:46 08/20/20 08:46 Labs: Laboratory Results - last 24 hr 08/20/20 08/20/20 08/20/20 08:46 08:46 08:46 WBC 6.0 RBC 4.24 L Hgb 13.2 L Hct 37.9 L MCV 89.3 MCH 31.1 MCHC 34.8 RDW 13.0 Plt Count 156 Neut % (Auto) 75.5 H Lymph % (Auto) 11.8 L [place] % (Auto) 9.3 Eos % (Auto) 2.7 Baso % (Auto) 0.7 Neut # (Auto) 4500 Lymph # (Auto) 700 L [place] # (Auto) 600 Eos # (Auto) 200 Baso # (Auto) 0 PT 21.2 H D INR 1.8 H Sodium 141 Potassium 4.0 Chloride 107 Carbon Dioxide 28 BUN 14 Creatinine 0.90 Estimated GFR > 60.0 BUN/Creatinine Ratio 15.6 Glucose 100 Calcium 9.4 PFSH Medical History Bilateral inguinal hernia without obstruction or gangrene Easy bruisability Fracture of head of right humerus (02/08/19) HLD (hyperlipidemia) HX: anticoagulation Hypertension Hypothyroidism Surgical History History of heart artery stent (~2003) Family History Mother Cancer Social History (Reviewed 08/20/20 @ 08:48 by GARETT Stevens marital status: household members: none Smoking Status: Former smoker alcohol intake: never substance use type: does not use Discharge Plan Departure Patient Disposition: Home Clinical Impression: Alteration in vision Instructions: DI for Stroke-Ischemic Activity Restrictions/Additional Instructions: *You have been diagnosed with [episode of vision change, likely a consequence of your recent stroke. I have discussed your case with the on-call stroke neurologist and there are no recommendations for change in medications or further diagnostics at this point] *What to do: *Please continue to take your regular medications as directed. [ ] New medication prescriptions sent to your pharmacy: [ ] [ ] New medication written as a paper prescription [x] No new medications given *Please follow up with your primary care provider in 2-3 days, call for an appointment. Let them know you were seen in the Emergency Department and that we ask that you be seen in follow up. We will electronically transmit a record of today's note if your PCP is in our system *Return to Emergency Department if you should have any new, worsening or concerning symptoms, such as [fever greater than 101 F, shaking chills, worsening pain, persistent vomiting, worsening vision change, other neurologic symptoms such as numbness, tingling, weakness, confusion, balance issues or other bothersome symptoms] Prescriptions: No Action tamsulosin [Flomax] 0.4 mg capsule 0.4 mg PO DAILY Qty: 30 RF: 0 amlodipine 5 mg Tablet 5 mg PO DAILY RF: 0 levothyroxine 25 mcg Tablet 25 mcg PO DAILY RF: 0 metoprolol tartrate 50 mg Tablet 25 mg PO BID RF: 0 pramipexole 0.125 mg Tablet 0.125 mg PO BEDTIME RF: 0 hydrocortisone 2.5 % Ointment 1 applic TOPICAL DIRECTED RF: 0 Restasis 0.05 % Dropperette 1 drp OPHTHALMIC (EYE) DIRECTED RF: 0 multivitamin Tablet 1 tab PO DAILY RF: 0 terazosin 10 mg Capsule 10 mg PO BEDTIME RF: 0 omega 4-mtr-qux-fish oil [Fish Oil] 1,000 mg (120 mg-180 mg) Capsule 1 cap PO BID RF: 0 Glucosamine 1 tab PO BID RF: 0 oxycodone 5 mg tablet See Rx Instructions .ROUTE .COMPLEX PRN (Reason: painful procedure) Qty: 20 RF: 0 warfarin 7.5 mg Tablet 7.5 mg PO QMWFSA RF: 0 warfarin 5 mg Tablet 5 mg PO QTUTHSU RF: 0 atorvastatin [Lipitor] 20 mg Tablet 80 mg PO DAILY Qty: 120 RF: 0 aspirin 81 mg Tablet,Delayed Release (Dr/Ec) 81 mg PO DAILY Qty: 30 RF: 0 Referrals: Rosi Jesus PA-C [Primary Care Provider] - [facility] [place] The patient has current or prior documentation of left ventricular ejection fraction (LVEF) less than 40%, or moderate or severely depressed left ventricular systolic function.: No
== END 2020-08-20 09:30 | disposition home or self-care (01) ==
PROVIDERS: Emergency Provider Emergency Medicine; PCP Student in an Organized Health Care Education/Training Program
DX: H54.7 Unspecified visual loss (principal); Z86.73 Personal history of transient ischemic attack (TIA), and cerebral infarction without residual deficits
CPT/HCPCS: 36415; 70450; 80048; 85025; 85610; 99283; 99284

== ENCOUNTER 2020-08-22 18:53 | Emergency (ER) | payer OTHER, SELFPAY ==
[2020-08-18 16:55] VITALS: BMI 24.0
[2020-08-22 19:03] VITALS: BP 137/76; PULSE 77; RESP 16; TEMP 36.6; O2SAT 97; BMI 23.7
--- NOTE | 2020-08-22 20:14 | ED.GENADULT ---
HPI - General Adult General Chief complaint: Urogenital-Male Stated complaint: cath removed, not urinating still, told to come ba Time Seen by Provider: 08/22/20 19:18 Source: patient Mode of arrival: Ambulatory Limitations: no limitations History of Present Illness HPI narrative: Patient is an 80-year-old male with a history of urinary retention. Had a urinary catheter in placed and today in follow-up had the catheter removed. He states that it was removed approximately 0200 hours this afternoon. He was told that if he did not urinate by 4 hours that he needed to come in to be evaluated. Patient states that he has not urinated in the allotted amount of time given by his primary provider. He states that he does not really have the urge to have to urinate and has no abdominal discomfort. He states that he thinks he has been drinking water this afternoon since the catheter has been removed. Related Data Home Medications Medication Instructions Recorded Confirmed Glucosamine 1 tab PO BID 02/08/19 08/18/20 Restasis 1 drp OPHTHALMIC (EYE) DIRECTED 02/08/19 08/18/20 amlodipine 5 mg PO DAILY 02/08/19 08/18/20 hydrocortisone 1 applic TOPICAL DIRECTED 02/08/19 08/18/20 levothyroxine 25 mcg PO DAILY 02/08/19 08/18/20 metoprolol tartrate 25 mg PO BID 02/08/19 08/18/20 multivitamin 1 tab PO DAILY 02/08/19 08/18/20 omega 4-cif-mof-fish oil [Fish Oil] 1 cap PO BID 02/08/19 08/18/20 pramipexole 0.125 mg PO BEDTIME 02/08/19 08/18/20 terazosin 10 mg PO BEDTIME 02/08/19 08/18/20 warfarin 5 mg PO QTUTHSU 08/18/20 08/18/20 warfarin 7.5 mg PO QMWFSA 08/18/20 08/18/20 Previous Rx's Medication Instructions Recorded oxycodone See Rx Instructions .ROUTE 08/13/20 .COMPLEX PRN #20 tab tamsulosin [Flomax] 0.4 mg PO DAILY #30 cap 08/14/20 aspirin 81 mg PO DAILY #30 tab 08/19/20 atorvastatin [Lipitor] 80 mg PO DAILY #120 tab 08/19/20 Allergies Allergy/AdvReac Type Severity Reaction Status Date / Time No Known Drug Allergies Allergy Verified 08/18/20 14:05 Review of Systems Constitutional Constitutional: Denies fever(s) Cardiovascular Cardiovascular: Reports system reviewed and no additional complaints, except as documented Respiratory Respiratory: Reports system reviewed and no additional complaints, except as documented Gastrointestinal Gastrointestinal: Denies abdominal pain Genitourinary Genitourinary: Denies dysuria, Denies urinary frequency, Denies urinary hesitancy, Denies urinary incontinence and Denies urinary urgency Genitourinary: Denies urinary frequency, Denies dysuria, Denies urinary incontinence, Denies urinary hesitancy and Denies urinary urgency Musculoskeletal Musculoskeletal: Denies back pain Integumentary/Breasts Skin/Breast: Reports system reviewed and no additional complaints, except as documented Neurologic Neurologic: Reports system reviewed and no additional complaints, except as documented Psychiatric Psychiatric: Reports system reviewed and no additional complaints, except as documented Endocrine Endocrine: Reports system reviewed and no additional complaints, except as documented Hematologic/Lymphatic On Anticoagulants: Yes Allergic/Immunologic Allergic/Immunologic: Reports system reviewed and no additional complaints, except as documented Patient History Medical History Bilateral inguinal hernia without obstruction or gangrene Easy bruisability Fracture of head of right humerus (02/08/19) HLD (hyperlipidemia) HX: anticoagulation Hypertension Hypothyroidism Surgical History History of heart artery stent (~2003) Family History Mother Cancer Social History marital status: household members: none Smoking Status: Former smoker alcohol intake: never substance use type: does not use Smoking Status: Former smoker Substance Use Type: does not use Exam Initial Vital Signs Initial Vital Signs: Vital Signs Temperature 97.8 F 08/22/20 19:03 Pulse Rate 77 08/22/20 19:03 Respiratory Rate 16 08/22/20 19:03 Blood Pressure 137/76 08/22/20 19:03 Pulse Oximetry 97 08/22/20 19:03 Const General: cooperative and comfortable Limitations: mental status not altered HENMN Head: normal to inspection and normocephalic Resp Effort & Inspection: normal respiratory effort Cardio Rate: regular rate GI Inspection: non-distended Palpation: soft, No firm and No tender Skin Lesions: no lesions Rashes: no rashes Neuro General: patient alert, patient awake and patient oriented x3 Extrem General: normal to inspection Psych Appearance: grossly normal and well kempt Course Vital Signs Vital signs: Vital Signs - 8 hr 08/22/20 20:24 Pulse Rate 72 Respiratory Rate 17 Blood Pressure 137/83 Pulse Oximetry 97 Medical Decision Making [facility] Narrative Medical decision making narrative: Patient does not have the urge to have to urinate and has no abdominal discomfort. Has minimal amount of urine in his bladder on the bladder scan. He states he is only here because he was told that if he has not urinated by 4 hours that he needed to come in for evaluation. He is afebrile. The feel that we should hold on replacing a urinary catheter based on his presentation today. He will go home and increase his fluid intake for the next couple hours if he has not urinated by then he will increase his fluid intake more however he was instructed that if he starts to feel like that he needs to urinate but cannot or if he starts having abdominal discomfort or fevers a needs to return for further evaluation. He expressed understanding and agreement with this. Discharge Plan Departure Patient Disposition: Home Clinical Impression: Feared condition not demonstrated Instructions: DI for Urinary Retention in Men Activity Restrictions/Additional Instructions: Recommend that you continue all of your medications as directed. I also recommend that you increase your fluid intake over the next several hours. If you have not urinated by morning I do recommend you come back in for re-evaluation otherwise if you start to develop a sensation of having to urinate and not being able to or increase and lower abdominal discomfort please return sooner. Contact your primary provider for follow-up. Prescriptions: No Action tamsulosin [Flomax] 0.4 mg capsule 0.4 mg PO DAILY Qty: 30 RF: 0 amlodipine 5 mg Tablet 5 mg PO DAILY RF: 0 levothyroxine 25 mcg Tablet 25 mcg PO DAILY RF: 0 metoprolol tartrate 50 mg Tablet 25 mg PO BID RF: 0 pramipexole 0.125 mg Tablet 0.125 mg PO BEDTIME RF: 0 hydrocortisone 2.5 % Ointment 1 applic TOPICAL DIRECTED RF: 0 Restasis 0.05 % Dropperette 1 drp OPHTHALMIC (EYE) DIRECTED RF: 0 multivitamin Tablet 1 tab PO DAILY RF: 0 terazosin 10 mg Capsule 10 mg PO BEDTIME RF: 0 omega 1-xoc-fki-fish oil [Fish Oil] 1,000 mg (120 mg-180 mg) Capsule 1 cap PO BID RF: 0 Glucosamine 1 tab PO BID RF: 0 oxycodone 5 mg tablet See Rx Instructions .ROUTE .COMPLEX PRN (Reason: painful procedure) Qty: 20 RF: 0 warfarin 7.5 mg Tablet 7.5 mg PO QMWFSA RF: 0 warfarin 5 mg Tablet 5 mg PO QTUTHSU RF: 0 atorvastatin [Lipitor] 20 mg Tablet 80 mg PO DAILY Qty: 120 RF: 0 aspirin 81 mg Tablet,Delayed Release (Dr/Ec) 81 mg PO DAILY Qty: 30 RF: 0 Referrals: Rosi Jesus PA-C [Primary Care Provider] -
[2020-08-22 20:24] VITALS: BP 137/83; PULSE 72; RESP 17; O2SAT 97
== END 2020-08-22 20:25 | disposition home or self-care (01) ==
PROVIDERS: Emergency Provider Emergency Medicine; PCP Student in an Organized Health Care Education/Training Program
DX: R33.9 Retention of urine, unspecified (principal)
CPT/HCPCS: 99281

== ENCOUNTER → 2021-05-15 12:44 | Outpatient (CLI) | payer OTHER, SELFPAY ==
[2020-08-18 16:55] VITALS: BMI 24.0
== END ==
PROVIDERS: PCP Student in an Organized Health Care Education/Training Program; Visit Provider Physician Assistant
DX: N34.3 Urethral syndrome, unspecified (principal)
CPT/HCPCS: 87086

== ENCOUNTER → 2021-08-25 11:57 | Outpatient (CLI) | payer OTHER, SELFPAY ==
[2020-08-18 16:55] VITALS: BMI 24.0
[2021-08-25 13:15] LABS: Add Manual Diff / Slide Review NO; Basophils Absolute Auto 0 /uL (0-100); Basophils Percent Auto 0.5 % (0-2); Eosinophils Absolute Auto 100 /uL (0-450); Eosinophils Percent Auto 2.3 % (2-4); Hematocrit 39.1 % (41-53); Hemoglobin 13.5 g/dL (13.5-17.5); Lymphocytes Absolute Auto 800 /uL (1100-4500); Lymphocytes Percent Auto 16.2 % (25-40); Mean Corpuscular HGB Conc 34.4 % (30-36); Mean Corpuscular Hemoglobin 30.4 PG (26-34); Mean Corpuscular Volume 88.4 fL (80-100); Monocytes Absolute Auto 400 /uL (0-900); Monocytes Percent Auto 8.6 % (3-14); Neutrophils Absolute Auto 3700 /uL (1500-7000); Neutrophils Percent Auto 72.4 % (50-75); Platelet Count 142 X10^3/uL (150-400); Red Blood Cell Count 4.43 X10^6/uL (4.5-5.9); Red Cell Distribution Width 13.8 % (11.6-14.8); White Blood Cell Count 5.1 X10^3/uL (4.5-11.0)
[2021-08-25 13:25] LABS: Alanine Aminotransferase 26 IU/L (<50); Albumin 4.1 g/dL (3.5-5.0); Albumin Globulin Ratio 1.3 (1.0-2.8); Alkaline Phosphatase 90 U/L (38-126); Aspartate Aminotransferase 32 IU/L (17-59); BUN Creatinine Ratio 13.9 (6-22); Bilirubin Total 0.8 mg/dL (0.2-1.3); Blood Urea Nitrogen 14 mg/dL (9-20); Calcium 9.4 mg/dL (8.4-10.2); Carbon Dioxide 31 mmol/L (22-32); Chloride 105 mmol/L (98-107); Creatine Kinase 42 U/L (55-170); Estimated Glomerular Filt Rate > 60 mL/min (>60); Globulin 3.2 g/dL (1.7-4.1); Glucose 86 mg/dL (80-110); HEMOLYSIS < 15 (0-50); Potassium 4.4 mmol/L (3.4-5.1); Sodium 141 mmol/L (137-145); Total Protein 7.3 g/dL (6.3-8.2)
[2021-08-25 13:36] LABS: Troponin I < 0.012 ng/mL (0.01-0.034)
[2021-08-25 14:11] LABS: TSH w/ Reflex to FT4 0.04 uIU/mL (0.47-4.68)
[2021-08-25 14:43] LABS: Free T4, Direct Thyroxine 1.96 ng/dL (0.78-2.19)
== END ==
PROVIDERS: PCP Student in an Organized Health Care Education/Training Program; Referring Provider Physician Assistant; Visit Provider Physician Assistant
DX: R42 Dizziness and giddiness (principal); R53.83 Other fatigue
CPT/HCPCS: 36415; 80053; 82550; 84439; 84443; 84484; 85025

== ENCOUNTER → 2021-09-16 09:12 | Outpatient (CLI) | payer OTHER, SELFPAY ==
[2020-08-18 16:55] VITALS: BMI 24.0
[2021-09-16 10:12] LABS: Add Manual Diff / Slide Review NO; Basophils Absolute Auto 0 /uL (0-100); Basophils Percent Auto 0.5 % (0-2); Eosinophils Absolute Auto 100 /uL (0-450); Eosinophils Percent Auto 2.7 % (2-4); Hematocrit 43.4 % (41-53); Hemoglobin 14.5 g/dL (13.5-17.5); Lymphocytes Absolute Auto 1200 /uL (1100-4500); Mean Corpuscular HGB Conc 33.4 % (30-36); Mean Corpuscular Hemoglobin 29.7 PG (26-34); Monocytes Absolute Auto 500 /uL (0-900); Monocytes Percent Auto 8.6 % (3-14); Neutrophils Absolute Auto 3500 /uL (1500-7000); Neutrophils Percent Auto 65.2 % (50-75); Platelet Count 161 X10^3/uL (150-400); Red Blood Cell Count 4.87 X10^6/uL (4.5-5.9); Red Cell Distribution Width 13.9 % (11.6-14.8); White Blood Cell Count 5.3 X10^3/uL (4.5-11.0)
[2021-09-16 11:42] LABS: BUN Creatinine Ratio 16.8 (6-22); Blood Urea Nitrogen 17 mg/dL (9-20); Calcium 9.5 mg/dL (8.4-10.2); Carbon Dioxide 29 mmol/L (22-32); Chloride 104 mmol/L (98-107); Cholesterol 115 mg/dL (140-199); Estimated Glomerular Filt Rate > 60 mL/min (>60); Glucose 94 mg/dL (80-110); HDL Cholesterol 43 mg/dL (40-60); HEMOLYSIS < 15 (0-50); LDL Cholesterol Calculated 58 mg/dL (<100); Potassium 4.3 mmol/L (3.4-5.1); Sodium 142 mmol/L (137-145); Triglycerides 71 mg/dL (35-150)
== END ==
PROVIDERS: PCP Student in an Organized Health Care Education/Training Program; Referring Provider Internal Medicine Cardiovascular Disease; Visit Provider Internal Medicine Cardiovascular Disease
DX: E78.5 Hyperlipidemia, unspecified (principal); I25.10 Atherosclerotic heart disease of native coronary artery without angina pectoris
CPT/HCPCS: 36415; 80048; 80061; 85025

== ENCOUNTER 2022-05-04 14:00 | Emergency (ER) | payer OTHER, SELFPAY ==
[2020-08-18 16:55] VITALS: BMI 24.0
[2022-05-04] VITALS (24 sets, daily range): BP systolic 108–167; BP diastolic 57–93; PULSE 70–118; RESP 12–24; TEMP 36.6; O2SAT 91–98; BMI 21.7
--- NOTE | 2022-05-04 14:16 | DI.RAD.S_ITS ---
PROCEDURE: XR RIBS RT MIN 3V W CXR 1V INDICATIONS: r/o fx TECHNIQUE: Two views of the right ribs were acquired, along with a single view chest. COMPARISON: [facility] [place], [place], XR SHOULDER 2+ VIEWS RIGHT, 03/29/2019, 10:31. FINDINGS: Surgical changes and devices: None. Bones and chest wall: No visible displaced rib fractures. No suspicious bone lesions. There is deformity of healed impacted right humeral neck fracture. There is no radiodense foreign body or subcutaneous emphysema in soft tissues. Lungs and pleura: No pleural effusions or pneumothorax. Lungs demonstrate mild diffuse interstitial thickening. No dense consolidations. Mediastinum: The heart is moderately enlarged and there is mild central vascular congestion. Normal aortic contour. IMPRESSION: 1. No visible displaced rib fracture. 2. Mild central vascular and interstitial congestion. Correlate with BNP and consider CHF given cardiomegaly. 3. Chronic deformity of prior impacted right humeral neck fracture. Dictated by: Heidi Maza M.D. on 05/04/2022 at 14:44 Approved by: Heidi Maza M.D. on 05/04/2022 at 14:47
--- NOTE | 2022-05-04 14:16 | DI.RAD.S_ITS ---
PROCEDURE: XR HIP W PEL IF DONE LT 2V INDICATIONS: r/o fx TECHNIQUE: AP pelvis with lateral view(s) of the left hip(s). COMPARISON: None. FINDINGS: Bones: No fractures or dislocations. Pelvic ring appears intact. No suspicious bony lesions. Soft tissues: The visualized bowel gas pattern is normal. No suspicious soft tissue calcifications. IMPRESSION: No visible fracture. Dictated by: Heidi Maza M.D. on 05/04/2022 at 14:43 Approved by: Heidi Maza M.D. on 05/04/2022 at 14:44
--- NOTE | 2022-05-04 14:16 | DI.RAD.S_ITS ---
PROCEDURE: XR KNEE LT 1TO2V INDICATIONS: Pain. Trauma. r/o fx TECHNIQUE: 3 views of the knee were acquired. COMPARISON: None. FINDINGS: Bones: Displaced patella fracture. No suspicious bony lesions. 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 Soft tissues: No joint effusion. Chondrocalcinosis. Prepatellar soft tissue swelling. IMPRESSION: Patella fracture. Dictated by: Radha Jackson MD, PhD on 05/04/2022 at 14:55 Approved by: Radha Jackson MD, PhD on 05/04/2022 at 14:55
--- NOTE | 2022-05-04 14:16 | DI.CT.S_ITS ---
PROCEDURE: CT FACIAL BONES WO CON INDICATIONS: r/o fx TECHNIQUE: Noncontrast 2.5 mm thick axial images acquired from the mandible through the frontal sinuses, with coronal and sagittal reformatting. For radiation dose reduction, the following was used: automated exposure control, adjustment of mA and/or kV according to patient size. COMPARISON: None. FINDINGS: Image quality: Excellent. Bones and teeth: There is a questionable nondisplaced fracture of the right posterolateral sphenoid wing just anterior to the temporal suture. No other facial bone fractures are seen. Orbits appear intact, specifically right orbital rim underlying the soft tissue hematoma. Sinuses: Paranasal sinuses are aerated, without fluid levels, mucosal thickening, or mucoceles. Mastoid air cells are aerated. Soft tissues: Right supraorbital hematoma. No laceration. Trace debris on the skin surface. . No enlarged lymph nodes. Vascular: Visualized vascular structures appear normal in the absence of contrast. Bony vascular foramina and canals are intact. IMPRESSION: 1. Questionable nondisplaced right posterolateral sphenoid wing fracture, not immediately adjacent to the hematoma, but given site of injury, is possible. 2. Right supraorbital soft tissue hematoma without underlying orbital rim fracture. Dictated by: Heidi Maza M.D. on 05/04/2022 at 14:08 Approved by: Heidi Maza M.D. on 05/04/2022 at 14:27
--- NOTE | 2022-05-04 14:16 | DI.CT.S_ITS ---
PROCEDURE: CT HEAD/BRAIN WO CON INDICATIONS: r/o fx TECHNIQUE: Noncontrast 4.5 mm thick angled axial sections acquired from the foramen magnum to the vertex, with coronal and sagittal reformats. For radiation dose reduction, the following was used: automated exposure control, adjustment of mA and/or kV according to patient size. COMPARISON: [facility], CT, CT HEAD/BRAIN WO CON, 02/08/2019, 17:04. FINDINGS: Image quality: Excellent. CSF spaces: Basal cisterns are patent. No extra-axial fluid collections. The ventricles are symmetric in size and shape. Brain: No intracranial bleeds or masses. There is cerebral volume loss for age, with resultant ventricular and sulcal prominence. There are periventricular and deep white matter chronic small vessel ischemic changes. There is intracranial internal carotid artery atherosclerosis. Skull and face: Moderate-sized right supraorbital soft tissue swelling. No radiodense foreign bodies or visible lacerations. No underlying skull fracture. Sinuses: Visualized sinuses and mastoids are clear. IMPRESSION: 1. No CT evidence of acute intracranial trauma. 2. Right supraorbital soft tissue swelling without underlying fracture. 3. Age-appropriate exam. Dictated by: Heidi Maza M.D. on 05/04/2022 at 14:05 Approved by: Heidi Maza M.D. on 05/04/2022 at 14:07
--- NOTE | 2022-05-04 14:16 | DI.CT.S_ITS ---
PROCEDURE: CT CERVICAL SPINE WO CON INDICATIONS: r/o fx TECHNIQUE: Noncontrast 3 mm thick sections acquired from the skull base to the T4 level. Sagittal and coronal reformats were then constructed. For radiation dose reduction, the following was used: automated exposure control, adjustment of mA and/or kV according to patient size. COMPARISON: None. FINDINGS: Image quality: Excellent. Bones: The craniocervical junction is intact. Mild degenerative space loss and spurring at the atlantodental interval. Dystrophic calcifications within the annular ligament. No cervical vertebral body fractures or pathologic subluxation. Multilevel moderate degenerative disc height loss and mild posterior endplate spurring. Visualized superior ribs are intact. Soft tissues: Questionable thickening of the posterior longitudinal ligament dorsal to C2 and C3. Epidural space appears otherwise clear. Dystrophic calcifications in the dorsal epidural region at the C5 and C7-T1 levels. Prevertebral soft tissues are normal in thickness. No paravertebral hematomas. No apical pneumothoraces. IMPRESSION: 1. No CT evidence of acute cervical spine fracture. 2. There is questionable, nonspecific thickening of the posterior longitudinal ligament at the C2 through C3 level. This is probably degenerative, however a small epidural hematoma cannot be excluded. MR imaging of the cervical spine is recommended. 3. Moderate multilevel degeneration. Dictated by: Heidi Maza M.D. on 05/04/2022 at 14:27 Approved by: Heidi Maza M.D. on 05/04/2022 at 14:35
--- NOTE | 2022-05-04 14:21 | DI.RAD.S_ITS ---
PROCEDURE: XR HUMERUS RT 2V INDICATIONS: r/o fx TECHNIQUE: Two views of the humerus were acquired. COMPARISON: None. FINDINGS: Bones: No acute fractures. There is a deformity of a prior impacted right humeral neck fracture. There is probably slight superior subluxation of the humeral head in the glenoid fossa. Mild degeneration at the acromioclavicular joint. The elbow joint appears grossly aligned on the given images. Soft tissues: No suspicious soft tissue calcifications. IMPRESSION: 1. No acute humerus fracture. 2. 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 Dictated by: Heidi Maza M.D. on 05/04/2022 at 14:58 Approved by: Heidi Maza M.D. on 05/04/2022 at 15:00
--- NOTE | 2022-05-04 15:48 | DI.RAD.S_ITS ---
PROCEDURE: XR SHOULDER RT MIN 2V INDICATIONS: r/o fx TECHNIQUE: 3 views of the shoulder were acquired. COMPARISON: [facility], [place], XR HUMERUS RT 2V, 05/04/2022, 14:22. [facility], [place], XR SHOULDER RT MIN 2V, 02/08/2019, 17:01. FINDINGS: No definite fracture in the right humerus, although the mixed lytic and sclerotic mottled appearance of the right humeral head limits evaluation. Intact clavicle. No obvious scapular fracture. Normal glenohumeral alignment. IMPRESSION: No acute finding. Dictated by: Temo Marie M.D. on 05/04/2022 at 16:29 Approved by: Temo Marie M.D. on 05/04/2022 at 16:30
--- NOTE | 2022-05-04 15:48 | DI.MRI.S_ITS ---
PROCEDURE: MR CERVICAL SPINE WO CON INDICATIONS: trauma/pain TECHNIQUE: Noncontrast sagittal T1 spin echo and T2 fast spin echo, sagittal STIR, foraminal oblique sagittal T2 fast spin echo, and axial gradient echo or T2 fast spin echo through the cervical spine. COMPARISON: [facility], CT, CT CERVICAL SPINE WO CON, 05/04/2022, 14:25. FINDINGS: Image quality: Excellent. Alignment and Curvature: There is normal bony alignment. Bone Marrow: Marrow demonstrates normal overall signal. Spinal Cord: Visualized spinal cord has normal size and signal. No cerebellar tonsillar herniation. Paraspinous Soft Tissues: No paravertebral masses. Prevertebral soft tissues are normal in thickness. No visualized hematoma. C2-C3: Mild disc bulge with superimposed posterior central protrusion. Mild spinal stenosis with indentation of the anterior thecal sac and canal. No foraminal narrowing. C3-C4: Mild disc bulge with moderate to severe spinal stenosis. Moderate to severe right and moderate left foraminal narrowing with uncovertebral hypertrophy. C4-C5: Mild disc bulge with [id number] spinal stenosis. Severe right and moderate left foraminal narrowing with uncovertebral hypertrophy. C5-C6: Mild disc bulge with mild spinal stenosis. Moderate to severe left and moderate right foraminal narrowing with uncovertebral hypertrophy. C6-C7: Mild disc bulge with mild spinal stenosis. Moderate to severe right and moderate left foraminal narrowing with uncovertebral hypertrophy. C7-T1: Mild disc bulge with [id number] bilateral foraminal narrowing. Minimal spinal stenosis IMPRESSION: No visualized acute traumatic injury. Multilevel degenerative changes. Dictated by: Gila Muller M.D. on 05/04/2022 at 19:09 Approved by: Gila Muller M.D. on 05/04/2022 at 19:13
[2022-05-04] MEDS: MORPHINE 4 MG/ML INJ IV (15:59)
[2022-05-04] MEDS: ONDANSETRON 4 MG/2 ML INJ IV (16:00)
[2022-05-04 16:18] LABS: Add Manual Diff / Slide Review NO; Basophils Absolute Auto 0 /uL (0-100); Basophils Percent Auto 0.2 % (0-2); Eosinophils Absolute Auto 100 /uL (0-450); Hematocrit 42.1 % (41-53); Hemoglobin 14.4 g/dL (13.5-17.5); Lymphocytes Absolute Auto 800 /uL (1100-4500); Mean Corpuscular HGB Conc 34.1 % (30-36); Mean Corpuscular Hemoglobin 30.3 PG (26-34); Monocytes Absolute Auto 400 /uL (0-900); Monocytes Percent Auto 4.1 % (3-14); Neutrophils Absolute Auto 8100 /uL (1500-7000); Neutrophils Percent Auto 86.7 % (50-75); Platelet Count 141 X10^3/uL (150-400); Red Blood Cell Count 4.73 X10^6/uL (4.5-5.9); Red Cell Distribution Width 13.4 % (11.6-14.8); White Blood Cell Count 9.4 X10^3/uL (4.5-11.0)
--- NOTE | 2022-05-04 16:20 | ED_ITS ---
HPI - Fall <Lon Hooper MD - Last Filed: 05/20/22 07:44> General Chief Complaint: Fall Stated Complaint: GLF Time Seen by Provider: 05/04/22 15:36 Source: patient and EMS Mode of arrival: EMS History of Present Illness HPI Narrative: Patient brought in by ambulance for mechanical fall. Patient was walking his dog. Denies any pre event chest pain headache abdominal pain back pain dizziness. No dyspnea. Patient thinks he tripped on something on the ground and fell forward. Complains of left knee pain right rib pain right shoulder pain, neck pain and right facial pain. Patient is on blood thinner for atrial fibrillation. Denies any pelvis or hip pain. No loss of consciousness. Patient at baseline. Daughter is at bedside. Denies any vision changes. No headache. Related Data Home Medications Medication Instructions Recorded Confirmed Glucosamine 1 tab PO BID 02/08/19 05/11/22 amlodipine 5 mg tablet 5 mg PO DAILY 02/08/19 05/11/22 cyclosporine 0.05 % eye drops in a 1 drp ophthalmic (eye) DIRECTED 02/08/19 05/11/22 dropperette (Restasis) hydrocortisone 2.5 % topical 1 applic topical DIRECTED 02/08/19 05/11/22 ointment levothyroxine 25 mcg tablet See Rx Instructions .Route .COMPLEX 02/08/1906/03 metoprolol tartrate 50 mg tablet 25 mg PO BID 02/08/19 05/13/22 multivitamin 1 tab PO DAILY 02/08/19 05/11/22 omega 1-zdi-kaz-fish oil 1,000 mg 1 cap PO BID 02/08/19 05/11/22 (120 mg-180 mg) capsule (Fish Oil) pramipexole 0.125 mg tablet 0.125 mg PO BEDTIME 02/08/19 05/11/22 terazosin 10 mg capsule 10 mg PO BEDTIME 02/08/19 05/11/22 warfarin 5 mg tablet 5 mg PO QTUTHSU 08/18/20 05/11/22 warfarin 7.5 mg tablet 7.5 mg PO QMWFSA 08/18/20 05/13/22 Previous Rx's Medication Instructions Recorded oxycodone 5 mg tablet See Rx Instructions .Route 08/13/20 .COMPLEX PRN painful procedure #20 tabs aspirin 81 mg tablet,delayed 81 mg PO DAILY #30 tabs 08/19/20 release atorvastatin 20 mg tablet (Lipitor) 80 mg PO DAILY #120 tabs 08/19/20 tamsulosin 0.4 mg capsule (Flomax) 0.4 mg PO DAILY #10 caps 05/15/21 ibuprofen 600 mg tablet 600 mg PO Q6H PRN pain #60 tabs 05/13/22 ondansetron HCl 4 mg tablet 4 mg PO Q8H PRN nausea and 05/13/22 vomiting #10 tabs oxycodone 5 mg tablet 5 mg PO Q4HR PRN pain #40 tabs 05/17/22 Allergies Allergy/AdvReac Type Severity Reaction Status Date / Time No Known Drug Allergies Allergy Verified 05/13/22 09:22 Review of Systems <Lon Hooper MD - Last Filed: 05/20/22 07:44> Review of Systems Narrative: GENERAL: negative chills, fatigue, malaise, fever, sweats. HEENT: negative sinus pain, ear pain, sore throat RESPIRATORY: negative dyspnea, cough CARDIOVASCULAR: negative chest pain, palpitations GASTROINTESTINAL: negative nausea, vomiting, abdominal pain : negative dysuria, frequency, hematuria MUSCULOSKELETAL: Positive muscle or bony pain SKIN: negative rash, skin lesions, positive for ecchymosis abrasion/skin injury NEUROLOGIC: negative weakness, numbness ROS Unobtainable: All systems reviewed & are unremarkable except as noted in HPI and below Patient History <Lon Hooper MD - Last Filed: 05/20/22 07:44> Medical History Bilateral inguinal hernia without obstruction or gangrene CAD (coronary artery disease) Cervical stenosis of spinal canal CVA (cerebral vascular accident) (08/2020) Depression Easy bruisability Fall (05/04/22) Fracture of head of right humerus (02/08/19) HLD (hyperlipidemia) HX: anticoagulation Hypertension Hypothyroidism Osteoarthritis Surgical History H/O vasectomy History of cataract extraction History of heart artery stent (~2003) Hx of hernia repair (08/13/20) Family History Mother Cancer Social History marital status: household members: none and other Smoking Status: Former smoker alcohol intake: never substance use type: does not use Smoking Status: Former smoker Substance Use Type: does not use Exam <Lon Hooper MD - Last Filed: 05/20/22 07:44> Narrative Exam Narrative: GENERAL: in no distress, not toxic not dyspneic HEAD: Normocephalic. There is soft tissue swelling edema ecchymosis right periorbital area. Abrasion at the right eyebrow. No active bleeding. EYES: Pupils equal round, no subconjunctival hematoma. Denies double vision on gross exam, EOMI ENT: Mucous membranes moist. There is edema and tenderness to the nose. Skin is intact. No malocclusion or trismus. NECK: Patient remains in collared device provided by EMS CARDIOVASCULAR: Strong bilateral carotid pulses no bruit, strong radial pulses RESPIRATORY: Clear to auscultation. Breath sounds equal bilaterally. No wheezes, rales, or rhonchi. GASTROINTESTINAL: Abdomen soft, non-tender EXTREMITIES: Tender to the left patella/knee. There is ecchymosis and edema. Limited range of motion due to pain. There is swelling to the right shoulder with limited range of motion due to pain. Nontender elbow wrist and hand and forearm on the right side. Left upper extremity nontender. Right lower extremity nontender. Pelvis and hips nontender. NEURO: AOx4. SKIN: Warm and dry PSYCH: Not anxious, is cooperative Initial Vital Signs Initial Vital Signs: Vital Signs Temperature 97.9 F 05/04/22 14:09 Pulse Rate 86 05/04/22 14:09 Respiratory Rate 18 05/04/22 14:09 Blood Pressure 140/80 05/04/22 14:09 Pulse Oximetry 96 05/04/22 14:09 Oxygen Delivery Method 05/04/22 14:09 <Charley Cali MD - Last Filed: 05/04/22 22:51> Initial Vital Signs Initial Vital Signs: Vital Signs Temperature 97.9 F 05/04/22 14:09 Pulse Rate 86 05/04/22 14:09 Respiratory Rate 18 05/04/22 14:09 Blood Pressure 140/80 05/04/22 14:09 Pulse Oximetry 96 05/04/22 14:09 Oxygen Delivery Method 05/04/22 14:09 <Charley Cali MD - Last Filed: 05/04/22 22:51> Orthopedic Splinting/Casting Left patellar fracture: Time of procedure: 22:48 Side: left Lower Extremity Injury Location: knee Lower Extremity Immobilizer: knee immobilizer Other Orthopedic Equipment: walker Post splinting neuro exam: intact Post splinting vascular exam: intact Placed by: Nursing Additional Comments: Passes an ambulatory trial in the emergency department without difficulty Course <Lon Hooper MD - Last Filed: 05/20/22 07:44> Orders Ordered: Discontinued Medications Acetaminophen (Acetaminophen 325 Mg Tablet) 325 mg PO NOW ONE Stop: 05/04/22 22:39 Last Admin: 05/04/22 23:12 Dose: 325 mg Documented By: BRENDA Hydrocodone Bitart/Acetaminophen (Hydrocodone/Acet 5/325 Tablet) 1 tab PO NOW ONE Stop: 05/04/22 22:39 Last Admin: 05/04/22 23:12 Dose: 1 tab Documented By: BRENDA Hydrocodone Bitart/Acetaminophen (Hydrocodone/Acet 5/325 Prepack) 1 bottle MISC SEEINSTR ONE Stop: 05/04/22 22:39 Last Admin: 05/04/22 23:13 Dose: 1 bottle Documented By: BRENDA Metoprolol Tartrate (Metoprolol Ir 25 Mg Tablet) 25 mg PO NOW ONE Stop: 05/04/22 22:39 Last Admin: 05/04/22 23:12 Dose: 25 mg Documented By: BRENDA Morphine Sulfate (Morphine 4 Mg/Ml Inj) 4 mg IV NOW ONE Stop: 05/04/22 15:36 Last Admin: 05/04/22 15:59 Dose: 4 mg Documented By: EMIR Morphine Sulfate (Morphine 4 Mg/Ml Inj) 4 mg IV NOW ONE Stop: 05/04/22 18:53 Last Admin: 05/04/22 20:07 Dose: Not Given Documented By: BRENDA Ondansetron HCl (Ondansetron 4 Mg/2 Ml Inj) 4 mg IV NOW ONE Stop: 05/04/22 15:35 Last Admin: 05/04/22 16:00 Dose: 4 mg Documented By: EMIR Vital Signs Vital signs: Vital Signs - 8 hr 05/04/22 14:47 05/04/22 15:00 05/04/22 15:30 Pulse Rate 70 80 89 Respiratory Rate 17 24 Blood Pressure Pulse Oximetry 98 96 97 Oxygen Delivery Method 05/04/22 16:00 05/04/22 16:30 05/04/22 16:33 Pulse Rate 90 93 H 91 H Respiratory Rate 20 22 Blood Pressure Pulse Oximetry 98 97 98 Oxygen Delivery Method 05/04/22 16:33 05/04/22 17:00 05/04/22 17:01 Pulse Rate 90 Respiratory Rate Blood Pressure 167/93 H 122/68 Pulse Oximetry 94 Oxygen Delivery Method 05/04/22 17:01 05/04/22 17:30 05/04/22 17:30 Pulse Rate 94 H 94 H Respiratory Rate Blood Pressure 112/58 L Pulse Oximetry 93 91 Oxygen Delivery Method 05/04/22 18:15 05/04/22 18:17 05/04/22 18:17 Pulse Rate 93 H 96 H Respiratory Rate 14 Blood Pressure 135/82 Pulse Oximetry 95 95 Oxygen Delivery Method 05/04/22 18:30 05/04/22 18:30 05/04/22 19:00 Pulse Rate 96 H Respiratory Rate 14 Blood Pressure 130/72 145/78 H Pulse Oximetry 93 Oxygen Delivery Method 05/04/22 19:00 05/04/22 19:30 05/04/22 19:30 Pulse Rate 103 H 97 H Respiratory Rate 13 16 Blood Pressure 121/73 Pulse Oximetry 95 92 Oxygen Delivery Method Room Air 05/04/22 20:00 05/04/22 20:00 05/04/22 20:30 Pulse Rate 99 H Respiratory Rate 12 Blood Pressure 122/71 125/68 Pulse Oximetry 93 Oxygen Delivery Method Room Air 05/04/22 20:30 05/04/22 21:00 05/04/22 21:00 Pulse Rate 101 H 97 H Respiratory Rate 18 16 Blood Pressure 120/68 Pulse Oximetry 93 94 Oxygen Delivery Method Room Air Room Air 05/04/22 21:30 05/04/22 21:30 Pulse Rate 118 H Respiratory Rate 20 Blood Pressure 119/83 Pulse Oximetry 95 Oxygen Delivery Method Room Air <Charley Cali MD - Last Filed: 05/04/22 22:51> Orders Ordered: Discontinued Medications Acetaminophen (Acetaminophen 325 Mg Tablet) 325 mg PO NOW ONE Stop: 05/04/22 22:39 Last Admin: 05/04/22 23:12 Dose: 325 mg Documented By: BRENDA Hydrocodone Bitart/Acetaminophen (Hydrocodone/Acet 5/325 Tablet) 1 tab PO NOW ONE Stop: 05/04/22 22:39 Last Admin: 05/04/22 23:12 Dose: 1 tab Documented By: BRENDA Hydrocodone Bitart/Acetaminophen (Hydrocodone/Acet 5/325 Prepack) 1 bottle MISC SEEINSTR ONE Stop: 05/04/22 22:39 Last Admin: 05/04/22 23:13 Dose: 1 bottle Documented By: BRENDA Metoprolol Tartrate (Metoprolol Ir 25 Mg Tablet) 25 mg PO NOW ONE Stop: 05/04/22 22:39 Last Admin: 05/04/22 23:12 Dose: 25 mg Documented By: BRENDA Morphine Sulfate (Morphine 4 Mg/Ml Inj) 4 mg IV NOW ONE Stop: 05/04/22 15:36 Last Admin: 05/04/22 15:59 Dose: 4 mg Documented By: EMIR Morphine Sulfate (Morphine 4 Mg/Ml Inj) 4 mg IV NOW ONE Stop: 05/04/22 18:53 Last Admin: 05/04/22 20:07 Dose: Not Given Documented By: BRENDA Ondansetron HCl (Ondansetron 4 Mg/2 Ml Inj) 4 mg IV NOW ONE Stop: 05/04/22 15:35 Last Admin: 05/04/22 16:00 Dose: 4 mg Documented By: EMIR Vital Signs Vital signs: Vital Signs - 8 hr 05/04/22 14:47 05/04/22 15:00 05/04/22 15:30 Pulse Rate 70 80 89 Respiratory Rate 17 24 Blood Pressure Pulse Oximetry 98 96 97 Oxygen Delivery Method 05/04/22 16:00 05/04/22 16:30 05/04/22 16:33 Pulse Rate 90 93 H 91 H Respiratory Rate 20 22 Blood Pressure Pulse Oximetry 98 97 98 Oxygen Delivery Method 05/04/22 16:33 05/04/22 17:00 05/04/22 17:01 Pulse Rate 90 Respiratory Rate Blood Pressure 167/93 H 122/68 Pulse Oximetry 94 Oxygen Delivery Method 05/04/22 17:01 05/04/22 17:30 05/04/22 17:30 Pulse Rate 94 H 94 H Respiratory Rate Blood Pressure 112/58 L Pulse Oximetry 93 91 Oxygen Delivery Method 05/04/22 18:15 05/04/22 18:17 05/04/22 18:17 Pulse Rate 93 H 96 H Respiratory Rate 14 Blood Pressure 135/82 Pulse Oximetry 95 95 Oxygen Delivery Method 05/04/22 18:30 05/04/22 18:30 05/04/22 19:00 Pulse Rate 96 H Respiratory Rate 14 Blood Pressure 130/72 145/78 H Pulse Oximetry 93 Oxygen Delivery Method 05/04/22 19:00 05/04/22 19:30 05/04/22 19:30 Pulse Rate 103 H 97 H Respiratory Rate 13 16 Blood Pressure 121/73 Pulse Oximetry 95 92 Oxygen Delivery Method Room Air 05/04/22 20:00 05/04/22 20:00 05/04/22 20:30 Pulse Rate 99 H Respiratory Rate 12 Blood Pressure 122/71 125/68 Pulse Oximetry 93 Oxygen Delivery Method Room Air 05/04/22 20:30 05/04/22 21:00 05/04/22 21:00 Pulse Rate 101 H 97 H Respiratory Rate 18 16 Blood Pressure 120/68 Pulse Oximetry 93 94 Oxygen Delivery Method Room Air Room Air 05/04/22 21:30 05/04/22 21:30 Pulse Rate 118 H Respiratory Rate 20 Blood Pressure 119/83 Pulse Oximetry 95 Oxygen Delivery Method Room Air MDM - Fall <Lon Hooper MD - Last Filed: 05/20/22 07:44> Lab Data 05/04/22 16:10 05/04/22 16:10 Labs: Lab Results 05/04/22 05/04/22 05/04/22 Range/Units 16:10 16:10 16:10 WBC 9.4 (4.5-11.0) X10^3/uL RBC 4.73 (4.5-5.9) X10^6/uL Hgb 14.4 (13.5-17.5) g/dL Hct 42.1 (41-53) % MCV 89.0 (80-100) fL MCH 30.3 (26-34) PG MCHC 34.1 (30-36) % RDW 13.4 (11.6-14.8) % Plt Count 141 L (150-400) X10^3/uL Neut % (Auto) 86.7 H (50-75) % Lymph % (Auto) 8.0 L (25-40) % [place] % (Auto) 4.1 (3-14) % Eos % (Auto) 1.0 L (2-4) % Baso % (Auto) 0.2 (0-2) % Neut # (Auto) 8100 H (0651-8775) /uL Lymph # (Auto) 800 L (4816-8588) /uL [place] # (Auto) 400 (0-900) /uL Eos # (Auto) 100 (0-450) /uL Baso # (Auto) 0 (0-100) /uL PT 33.5 H (10.1-12.7) SECONDS INR 2.9 H (0.9-1.3) Sodium 141 (137-145) mmol/L Potassium 4.1 (3.4-5.1) mmol/L Chloride 103 (98-107) mmol/L Carbon Dioxide 28 (22-32) mmol/L BUN 17 (9-20) mg/dL Creatinine 1.02 (0.66-1.25) mg/dL Estimated GFR > 60 (>60) mL/min BUN/Creatinine Ratio 16.7 (6-22) Glucose 107 (80-110) mg/dL Calcium 9.3 (8.4-10.2) mg/dL Total Bilirubin 1.0 (0.2-1.3) mg/dL AST 37 (17-59) IU/L ALT 36 (<50) IU/L Alkaline Phosphatase 121 (38-126) U/L Total Protein 7.8 (6.3-8.2) g/dL Albumin 4.3 (3.5-5.0) g/dL Globulin 3.5 (1.7-4.1) g/dL Albumin/Globulin Ratio 1.2 (1.0-2.8) Imaging Data CT scan - head: Radiologist's Impression: [address] [address] [address] Scan Report Signed Patient: Patrice Penaloza MR#: [id number] : 1940 Acct:[id number] Age/Sex: 81 / M Date of Service: 05/04/22 Loc: ED Accession Number: [id number] ?? Procedure: CT head/brain wo con Ordering Provider: Lon Hooper MD PROCEDURE:? CT HEAD/BRAIN WO CON ? INDICATIONS:? r/o fx ? TECHNIQUE:? Noncontrast 4.5 mm thick angled axial sections acquired from the foramen magnum to the vertex, with coronal and sagittal reformats.? For radiation dose reduction, the following was used:? automated exposure control, adjustment of mA and/or kV according to patient size.? ? COMPARISON:? [facility], CT, CT HEAD/BRAIN WO CON, 02/08/2019, 17:04. ? FINDINGS:? Image quality:? Excellent.? ? CSF spaces:? Basal cisterns are patent.? No extra-axial fluid collections.? The ventricles are symmetric in size and shape.? ? Brain:? No intracranial bleeds or masses.? There is cerebral volume loss for age, with resultant ventricular and sulcal prominence.? There are periventricular and deep white matter chronic small vessel ischemic changes.? There is intracranial internal carotid artery atherosclerosis.? ? Skull and face:? Moderate-sized right supraorbital soft tissue swelling.? No radiodense foreign bodies or visible lacerations.? No underlying skull fracture.? ? Sinuses:? Visualized sinuses and mastoids are clear.? ? IMPRESSION:? ? 1. No CT evidence of acute intracranial trauma. ? 2. Right supraorbital soft tissue swelling without underlying fracture. ? 3. Age-appropriate exam.? ? ? Dictated by: Heidi Maza M.D. on 05/04/2022 at 14:05 ? ? Approved by: Heidi Maza M.D. on 05/04/2022 at 14:07 ? Extremity x-ray #1: Radiologist's Impression: [address] [address] XRay Report Signed Patient: Patrice Penaloza MR#: [id number] : 1940 Acct:[id number] Age/Sex: 81 / M Date of Service: 05/04/22 Loc: ED Accession Number: [id number] ?? Procedure: XR shoulder RT min 2V Ordering Provider: Lon Hooper MD PROCEDURE:? XR SHOULDER RT MIN 2V ? INDICATIONS:? r/o fx ? TECHNIQUE:? 3 views of the shoulder were acquired.? ? COMPARISON:? [facility], CR, XR HUMERUS RT 2V, 05/04/2022, 14:22.? [facility], CR, XR SHOULDER RT MIN 2V, 02/08/2019, 17:01. ? FINDINGS:? No definite fracture in the right humerus, although the mixed lytic and sclerotic mottled appearance of the right humeral head limits evaluation.? Intact clavicle.? No obvious scapular fracture.? Normal glenohumeral alignment. ? IMPRESSION:? No acute finding. ? ? Dictated by: Temo Marie M.D. on 05/04/2022 at 16:29 ? ? Approved by: Temo Marie M.D. on 05/04/2022 at 16:30 ? Extremity x-ray #2: Radiologist's Impression: [address] [address] XRay Report Signed Patient: Patrice Penaloza MR#: [id number] : 1940 Acct:[id number] Age/Sex: 81 / M Date of Service: 05/04/22 Loc: ED Accession Number: [id number] ?? Procedure: XR humerus RT 2V Ordering Provider: Lon Hooper MD PROCEDURE:? XR HUMERUS RT 2V ? INDICATIONS:? r/o fx ? TECHNIQUE:? Two views of the humerus were acquired.? ? COMPARISON:? None. ? FINDINGS:? ? Bones:? No acute fractures.? There is a deformity of a prior impacted right humeral neck fracture.? There is probably slight superior subluxation of the humeral head in the glenoid fossa.? Mild degeneration at the acromioclavicular joint.? The elbow joint appears grossly aligned on the given images. ? Soft tissues:? No suspicious soft tissue calcifications.? ? IMPRESSION:? ? 1. No acute humerus fracture. ? 2. 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 ? ? Dictated by: Heidi Maza M.D. on 05/04/2022 at 14:58 ? ? Approved by: Heidi Maza M.D. on 05/04/2022 at 15:00 ? X-ray right ribs with chest: Radiologist's Impression: [address] [address] XRay Report Signed Patient: Patrice Penaloza MR#: [id number] : 1940 Acct:[id number] Age/Sex: 81 / M Date of Service: 05/04/22 Loc: ED Accession Number: [id number] ?? Procedure: XR ribs RT min 3V w CXR1V Ordering Provider: Lon Hooper MD PROCEDURE:? XR RIBS RT MIN 3V W CXR 1V ? INDICATIONS:? r/o fx ? TECHNIQUE:? Two views of the right ribs were acquired, along with a single view chest.? ? COMPARISON:? [facility] [place], , XR SHOULDER 2+ VIEWS RIGHT, 03/29/2019, 10:31. ? FINDINGS:? ? Surgical changes and devices:? None.? ? Bones and chest wall:? No visible displaced rib fractures.? No suspicious bone lesions.? There is deformity of healed impacted right humeral neck fracture.? There is no radiodense foreign body or subcutaneous emphysema in soft tissues. ? Lungs and pleura:? No pleural effusions or pneumothorax.? Lungs demonstrate mild diffuse interstitial thickening.? No dense consolidations.? ? Mediastinum:? The heart is moderately enlarged and there is mild central vascular congestion.? Normal aortic contour. ? IMPRESSION:? ? 1. No visible displaced rib fracture. ? 2. Mild central vascular and interstitial congestion.? Correlate with BNP and consider CHF given cardiomegaly. ? 3. Chronic deformity of prior impacted right humeral neck fracture.? ? ? Dictated by: Heidi Maza M.D. on 05/04/2022 at 14:44 ? ? Approved by: Heidi Maza M.D. on 05/04/2022 at 14:47 ? Extremity x-ray #3: Radiologist's Impression: [address] [address] XRay Report Signed Patient: Patrice Penaloza MR#: [id number] : 1940 Acct:[id number] Age/Sex: 81 / M Date of Service: 05/04/22 Loc: ED Accession Number: [id number] ?? Procedure: XR knee LT 1to2V Ordering Provider: Lon oHoper MD PROCEDURE:? XR KNEE LT 1TO2V ? INDICATIONS:? Pain.? Trauma.? r/o fx ? TECHNIQUE:? 3 views of the knee were acquired.? ? COMPARISON:? None. ? FINDINGS:? ? Bones:? Displaced patella fracture.? No suspicious bony lesions.? 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 ? Soft tissues:? No joint effusion.? Chondrocalcinosis.? Prepatellar soft tissue swelling. ? ? IMPRESSION:? Patella fracture. ? ? Dictated by: Radha Jackson MD, PhD on 05/04/2022 at 14:55 ? ? Approved by: Radha Jackson MD, PhD on 05/04/2022 at 14:55 ? X-ray hip: Radiologist's Impression: [address] [address] XRay Report Signed Patient: Patrice Penaloza MR#: [id number] : 1940 Acct:[id number] Age/Sex: 81 / M Date of Service: 05/04/22 Loc: ED Accession Number: [id number] ?? Procedure: XR hip w pel if done LT 2V Ordering Provider: Lon Hooper MD PROCEDURE:? XR HIP W PEL IF DONE LT 2V ? INDICATIONS:? r/o fx ? TECHNIQUE:? AP pelvis with lateral view(s) of the left hip(s).? ? COMPARISON:? None. ? FINDINGS:? ? Bones:? No fractures or dislocations.? Pelvic ring appears intact.? No susp icious bony lesions.? ? Soft tissues:? The visualized bowel gas pattern is normal.? No suspicious soft tissue calcifications.? ? ? IMPRESSION:? No visible fracture. ? Dictated by: Heidi Maza M.D. on 05/04/2022 at 14:43 ? ? Approved by: Heidi Maza M.D. on 05/04/2022 at 14:44 ? CT face: Radiologist's Impression: [address] [address] [address] Scan Report Signed Patient: Patrice Penaloza MR#: [id number] : 1940 Acct:[id number] Age/Sex: 81 / M Date of Service: 05/04/22 Loc: ED Accession Number: [id number] ?? Procedure: CT facial bones wo con Ordering Provider: Lon Hooper MD PROCEDURE:? CT FACIAL BONES WO CON ? INDICATIONS:? r/o fx ? TECHNIQUE:? Noncontrast 2.5 mm thick axial images acquired from the mandible through the frontal sinuses, with coronal and sagittal reformatting.? For radiation dose reduction, the following was used:? automated exposure control, adjustment of mA and/or kV according to patient size.? ? COMPARISON:? None. ? FINDINGS:? Image quality:? Excellent.? ? Bones and teeth:? There is a questionable nondisplaced fracture of the right posterolateral sphenoid wing just anterior to the temporal suture.? No other facial bone fractures are seen.? Orbits appear intact, specifically right orbital rim underlying the soft tissue hematoma.? ? Sinuses:? Paranasal sinuses are aerated, without fluid levels, mucosal thickening, or mucoceles.? Mastoid air cells are aerated.? ? Soft tissues:? Right supraorbital hematoma.? No laceration.? Trace debris on the skin surface.? .? No enlarged lymph nodes.? ? Vascular:? Visualized vascular structures appear normal in the absence of contrast.? Bony vascular foramina and canals are intact.? ? IMPRESSION:? ? 1. Questionable nondisplaced right posterolateral sphenoid wing fracture, not immediately adjacent to the hematoma, but given site of injury, is possible. ? 2. Right supraorbital soft tissue hematoma without underlying orbital rim fracture.? ? ? Dictated by: Heidi Maza M.D. on 05/04/2022 at 14:08 ? ? Approved by: Heidi Maza M.D. on 05/04/2022 at 14:27 ? CT cervical spine: Radiologist's Impression: [place] [address] CT Scan Report Signed Patient: Patrice Penaloza MR#: [id number] : 1940 Acct:[id number] Age/Sex: 81 / M Date of Service: 05/04/22 Loc: ED Accession Number: [id number] ?? Procedure: CT cervical spine wo con Ordering Provider: Lon Hooper MD PROCEDURE:? CT CERVICAL SPINE WO CON ? INDICATIONS:? r/o fx ? TECHNIQUE:? Noncontrast 3 mm thick sections acquired from the skull base to the T4 level.? Sagittal and coronal reformats were then constructed.? For radiation dose reduction, the following was used:? automated exposure control, adjustment of mA and/or kV according to patient size.? ? COMPARISON:? None. ? FINDINGS:? Image quality:? Excellent.? ? Bones:? The craniocervical junction is intact.? Mild degenerative space loss and spurring at the atlantodental interval.? Dystrophic calcifications within the annular ligament.? No cervical vertebral body fractures or pathologic subluxation.? Multilevel moderate degenerative disc height loss and mild posterior endplate spurring.? Visualized superior ribs are intact.? ? Soft tissues:? Questionable thickening of the posterior longitudinal ligament dorsal to C2 and C3.? Epidural space appears otherwise clear.? Dystrophic calcifications in the dorsal epidural region at the C5 and C7-T1 levels.? Prevertebral soft tissues are normal in thickness.? No paravertebral hematomas.? No apical pneumothoraces.? ? ? IMPRESSION:? ? 1. No CT evidence of acute cervical spine fracture. ? 2. There is questionable, nonspecific thickening of the posterior longitudinal ligament at the C2 through C3 level.? This is probably degenerative, however a small epidural hematoma cannot be excluded.? MR imaging of the cervical spine is recommended. ? 3. Moderate multilevel degeneration.? Dictated by: Heidi Maza M.D. on 05/04/2022 at 14:27 ? ? Approved by: Heidi Maza M.D. on 05/04/2022 at 14:35 ? [facility] Narrative Medical decision making narrative: Patient brought in by ambulance for mechanical fall. Patient was walking his dog. Denies any pre event chest pain headache abdominal pain back pain dizziness. No dyspnea. Patient thinks he tripped on something on the ground and fell forward. Complains of left knee pain right rib pain right shoulder pain, neck pain and right facial pain. Patient is on blood thinner for atrial fibrillation. Denies any pelvis or hip pain. No loss of consciousness. Patient at baseline. Daughter is at bedside. Denies any vision changes. No headache. After exam and history, CT images and x-rays ordered for CT head CT for cervical spine, CT face, x-ray right shoulder x-ray right ribs with chest, x-ray left knee, CBC CMP and coags were ordered. MDM CC: Facial pain left knee pain rib pain right shoulder pain Complicating co-morbidities: On anticoagulation, age, lives independently Data collected from: Patient and daughter Medical records reviewed: Previous visit here for stroke Differential considered: Includes but not limited to intracranial bleed/facial fracture/knee fracture/shoulder fracture/rib fracture/abrasions/cervical strain/cervical fracture Exam documented above, pertinent findings include: Right facial edema bruising edema abrasion, tender left knee and tender right shoulder and right ribs Lab Test results independently reviewed as above. Pertinent findings: Imaging studies independently reviewed: CT cervical spine shows nonspecific thickening of the posterior longitudinal ligament at C2/C3. No fracture, radilogy suggests MRI CT face questionable nondisplaced right posterolateral sphenoid wing fracture not immediately adjacent to the hematoma but given site of injury is possible CT head without contrast no acute intracranial trauma. There is right supraorbital soft tissue swelling without underlying fracture X-ray right hip no visible fracture X-ray left knee displaced patella fracture X-ray right rib with chest no visible displaced rib fracture. Chronic appearing prior impacted right humeral neck fracture X-ray right humerus no acute humerus fracture. X-ray right shoulder no acute finding Consultations: 4:[address] Jayme Anne, otolaryngology regarding CT face findings. Recommends calling [facility] trauma center for reviewing the CTs 5:47 p.m.. Spoke with [facility] otolaryngology, dr hartley, no txr needed, can follow-up in their clinic at [facility] 6:00 p.m.. Patient gone to MRI. Sign out Dr. Swanson, MRI pending results and disposition pending MRI results. May need admission for patellar fracture MRI cervical spine so shows no visualized acute traumatic injury, multilevel degenerative changes, no epidural hematoma. no need for additional neuro surgical consultation Treatments: Parenteral pain medications and antiemetics, oral metoprolol and oral pain medications. Splinting, use of a walker and ambulatory testing in the emergency department Re-evaluations: Care is assumed and patient is re-evaluated. All imaging studies and labs are independently reviewed. MD Viraj 730pm by problem: 1. Questionable nondisplaced right posterior lateral sphenoid wing fracture, has been discussed with ENT as well as surgeons at [facility]. Outpatient follow-up only. 2. Patellar fracture, knee immobilizer will be placed. We will see if he is able to bear weight. He has a moderate presumed at least prepatellar hematoma with concern for intra-articular bleeding secondary to his anticoagulation. If unable to ambulate may need hospitalization for PT or simply outpt follow up 3. Cervical spine strain, initial concern for possible soft tissue injury or subdural hematoma. MRI does not confirm this 4. Periorbital hematoma without periorbital fracture. No intracranial hemorrhage. Pain and swelling control will be required but no additional treatment 5. Chronic atrial fibrillation currently anticoagulated and therapeutic with an INR of 2.9. Rate is just over 100. I am concerned that with ambulation and pain control his rate is going to be poorly controlled and he may need further observation for this 6. Bleeding, at risk secondary to Coumadin. At this point he has a contained amount of blood in his knee that does not look like it is rapidly expanding. Moderate amount of bruising around his eye again does not appear to be rapidly expanding. No intracranial hemorrhage and no intra-abdominal or intrathoracic bleeding appreciated. 1040pm patient does very well with an ambulatory test. He is able to get to the bathroom and back with his walker. He has not had significant pain medicine at this point and states that he has used Vicodin once or twice in the past and that was helpful. Typically avoids pain medication altogether and if he does need anything finds Tylenol quite helpful. His atrial fibrillation is slightly fast however he has not had his evening metoprolol. He is not hypoxic, having any chest pain or complaining of palpitations and in discussion with patient and his daughter we have chosen to send him home. He is given a walker to use at home. We will give him a few tablets of Vicodin use for pain control tomorrow. He will need outpatient follow-up for the patellar fracture with orthopedic surgery and I have explained this to him. He and his daughter are pleased with current findings and they are safe for discharge home <Charley Cali MD - Last Filed: 05/04/22 22:51> Lab Data Labs: Lab Results 05/04/22 05/04/22 05/04/22 Range/Units 16:10 16:10 16:10 WBC 9.4 (4.5-11.0) X10^3/uL RBC 4.73 (4.5-5.9) X10^6/uL Hgb 14.4 (13.5-17.5) g/dL Hct 42.1 (41-53) % MCV 89.0 (80-100) fL MCH 30.3 (26-34) PG MCHC 34.1 (30-36) % RDW 13.4 (11.6-14.8) % Plt Count 141 L (150-400) X10^3/uL Neut % (Auto) 86.7 H (50-75) % Lymph % (Auto) 8.0 L (25-40) % [place] % (Auto) 4.1 (3-14) % Eos % (Auto) 1.0 L (2-4) % Baso % (Auto) 0.2 (0-2) % Neut # (Auto) 8100 H (5841-0398) /uL Lymph # (Auto) 800 L (2431-8116) /uL [place] # (Auto) 400 (0-900) /uL Eos # (Auto) 100 (0-450) /uL Baso # (Auto) 0 (0-100) /uL PT 33.5 H (10.1-12.7) SECONDS INR 2.9 H (0.9-1.3) Sodium 141 (137-145) mmol/L Potassium 4.1 (3.4-5.1) mmol/L Chloride 103 (98-107) mmol/L Carbon Dioxide 28 (22-32) mmol/L BUN 17 (9-20) mg/dL Creatinine 1.02 (0.66-1.25) mg/dL Estimated GFR > 60 (>60) mL/min BUN/Creatinine Ratio 16.7 (6-22) Glucose 107 (80-110) mg/dL Calcium 9.3 (8.4-10.2) mg/dL Total Bilirubin 1.0 (0.2-1.3) mg/dL AST 37 (17-59) IU/L ALT 36 (<50) IU/L Alkaline Phosphatase 121 (38-126) U/L Total Protein 7.8 (6.3-8.2) g/dL Albumin 4.3 (3.5-5.0) g/dL Globulin 3.5 (1.7-4.1) g/dL Albumin/Globulin Ratio 1.2 (1.0-2.8) MDM Narrative Medical decision making narrative: Patient brought in by ambulance for mechanical fall. Patient was walking his dog. Denies any pre event chest pain headache abdominal pain back pain dizziness. No dyspnea. Patient thinks he tripped on something on the ground and fell forward. Complains of left knee pain right rib pain right shoulder pain, neck pain and right facial pain. Patient is on blood thinner for atrial fibrillation. Denies any pelvis or hip pain. No loss of consciousness. Patient at baseline. Daughter is at bedside. Denies any vision changes. No headache. After exam and history, CT images and x-rays ordered for CT head CT for cervical spine, CT face, x-ray right shoulder x-ray right ribs with chest, x-ray left knee, CBC CMP and coags were ordered. MDM CC: Facial pain left knee pain rib pain right shoulder pain Complicating co-morbidities: On anticoagulation, age, lives independently Data collected from: Patient and daughter Medical records reviewed: Previous visit here for stroke Differential considered: Includes but not limited to intracranial bleed/facial fracture/knee fracture/shoulder fracture/rib fracture/abrasions/cervical strain/cervical fracture Exam documented above, pertinent findings include: Right facial edema bruising edema abrasion, tender left knee and tender right shoulder and right ribs Lab Test results independently reviewed as above. Pertinent findings: Imaging studies independently reviewed: CT cervical spine shows nonspecific thickening of the posterior longitudinal ligament at C2/C3. No fracture, radilogy suggests MRI CT face questionable nondisplaced right posterolateral sphenoid wing fracture not immediately adjacent to the hematoma but given site of injury is possible CT head without contrast no acute intracranial trauma. There is right supraorbital soft tissue swelling without underlying fracture X-ray right hip no visible fracture X-ray left knee displaced patella fracture X-ray right rib with chest no visible displaced rib fracture. Chronic appearing prior impacted right humeral neck fracture X-ray right humerus no acute humerus fracture. X-ray right shoulder no acute finding Consultations: 4:[address] Jayme Anne, otolaryngology regarding CT face findings. Recommends calling [facility] trauma eminence for reviewing the CTs 5:47 p.m.. Spoke with [facility] otolaryngology, dr hartley, no txr needed, can follow-up in their clinic at [facility] 6:00 p.m.. Patient gone to MRI. Sign out Dr. Swanson, NELLA pending results and disposition pending MRI results. May need admission for patellar fracture MRI cervical spine so shows no visualized acute traumatic injury, multilevel degenerative changes, no epidural hematoma. no need for additional neuro surgical consultation Treatments: Parenteral pain medications and antiemetics, oral metoprolol and oral pain medications. Splinting, use of a walker and ambulatory testing in the emergency department Re-evaluations: Care is assumed and patient is re-evaluated. All imaging studies and labs are independently reviewed. MD Viraj 730pm by problem: 1. Questionable nondisplaced right posterior lateral sphenoid wing fracture, has been discussed with ENT as well as surgeons at [facility]. Outpatient follow-up only. 2. Patellar fracture, knee immobilizer will be placed. We will see if he is able to bear weight. He has a moderate presumed at least prepatellar hematoma with concern for intra-articular bleeding secondary to his anticoagulation. If unable to ambulate may need hospitalization for PT or simply outpt follow up 3. Cervical spine strain, initial concern for possible soft tissue injury or subdural hematoma. MRI does not confirm this 4. Periorbital hematoma without periorbital fracture. No intracranial hemorrhage. Pain and swelling control will be required but no additional treatment 5. Chronic atrial fibrillation currently anticoagulated and therapeutic with an INR of 2.9. Rate is just over 100. I am concerned that with ambulation and pain control his rate is going to be poorly controlled and he may need further observation for this 6. Bleeding, at risk secondary to Coumadin. At this point he has a contained amount of blood in his knee that does not look like it is rapidly expanding. Moderate amount of bruising around his eye again does not appear to be rapidly expanding. No intracranial hemorrhage and no intra-abdominal or intrathoracic bleeding appreciated. 1040pm patient does very well with an ambulatory test. He is able to get to the bathroom and back with his walker. He has not had significant pain medicine at this point and states that he has used Vicodin once or twice in the past and that was helpful. Typically avoids pain medication altogether and if he does need anything finds Tylenol quite helpful. His atrial fibrillation is slightly fast however he has not had his evening metoprolol. He is not hypoxic, having any chest pain or complaining of palpitations and in discussion with patient and his daughter we have chosen to send him home. He is given a walker to use at home. We will give him a few tablets of Vicodin use for pain control tomorrow. He will need outpatient follow-up for the patellar fracture with orthopedic surgery and I have explained this to him. He and his daughter are pleased with current findings and they are safe for discharge home Discussion: Diagnosis: Discharge Plan Departure Patient Disposition: Home Clinical Impression: Fall from ground level, Anticoagulated on Coumadin, Patellar fracture, Cervical muscle strain, Hemarthrosis involving knee joint, Closed fracture of sphenoid bone, Periorbital hematoma of right eye, Atrial fibrillation Instructions: DI for Patella Fracture Activity Restrictions/Additional Instructions: Thank you for coming in today. I am sorry that you had such a significant fall. With the extensive workup done in the emergency department we did find that you broke your kneecap on the left side and there is quite a bit of blood around that area but the bleeding does seem to be controlled. This will need orthopedic follow-up. We have given you a walker as well as a knee immobilizer. Please use that whenever you are up and about. Please call [facility] at [phone] to schedule a ER follow-up appointment for definitive treatment of your patellar fracture Your black eye is going to get worse over the next couple of days. Fortunately we did not find any broken bones around your eye. There is a question of the bone further back on the side of your head with a fracture, however this is not something that needs any additional follow-up or treatment. You are not having any bleeding inside your head Your shoulder is going to be more sore over the next couple of days. Fortunately, you did not refracture that area. 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 the MRI of your neck confirms that that is not the case. With your atrial fibrillation, it is important that you continue to take all of your medications as prescribed. I gave you your nighttime dose of metoprolol in the ER You are going to find that you have more areas of tenderness and pain everywhere as you wake up tomorrow. It is okay to use Tylenol for moderate pain and 1 Tylenol +1 Vicodin for severe pain. You may find ice helpful to the particularly tender areas as well. If you find that you are getting worse or develop any new symptoms, please feel free to return to the emergency department for further evaluation. Prescriptions: No Action tamsulosin [Flomax] 0.4 mg capsule 0.4 mg PO DAILY Qty: 10 0RF ondansetron HCl 4 mg tablet 4 mg PO Q8H PRN (Reason: nausea and vomiting) Qty: 10 0RF ibuprofen 600 mg tablet 600 mg PO Q6H PRN (Reason: pain) Qty: 60 0RF oxycodone 5 mg Tablet 5 mg PO Q4HR PRN (Reason: pain) Qty: 40 0RF amlodipine 5 mg Tablet 5 mg PO DAILY levothyroxine 25 mcg Tablet See Rx Instructions .ROUTE .COMPLEX Label Comments: home med list has 175mcg---patient thinks not updated jh 02/08 Rx Instructions: UNKNOWN AMT - PT THINKS 175 MCG metoprolol tartrate 50 mg Tablet 25 mg PO BID pramipexole 0.125 mg Tablet 0.125 mg PO BEDTIME hydrocortisone 2.5 % Ointment 1 applic TOPICAL DIRECTED cyclosporine [Restasis] 0.05 % Dropperette 1 drp OPHTHALMIC (EYE) DIRECTED multivitamin Tablet 1 tab PO DAILY terazosin 10 mg Capsule 10 mg PO BEDTIME omega 0-xke-tpa-fish oil [Fish Oil] 1,000 mg (120 mg-180 mg) Capsule 1 cap PO BID Glucosamine 1 tab PO BID oxycodone 5 mg tablet See Rx Instructions .ROUTE .COMPLEX PRN (Reason: painful procedure) Qty: 20 0RF Rx Instructions: Take 1 or 2 pills every 6 hours if needed for pain. May constipate. warfarin 7.5 mg Tablet 7.5 mg PO QMWFSA Rx Instructions: 7.5 daily x 5 days, 2 days at 5mg warfarin 5 mg Tablet 5 mg PO QTUTHSU Rx Instructions: only and Tuesday atorvastatin [Lipitor] 20 mg Tablet 80 mg PO DAILY Qty: 120 0RF aspirin 81 mg Tablet,Delayed Release (Dr/Ec) 81 mg PO DAILY Qty: 30 0RF Referrals: Rosi Jesus PA-C [Primary Care Provider] - Stand Alone Forms: Patient Portal/API
[2022-05-04 16:36] LABS: INR 2.9 (0.9-1.3); Prothrombin Time 33.5 SECONDS (10.1-12.7)
[2022-05-04 16:42] LABS: Alanine Aminotransferase 36 IU/L (<50); Albumin 4.3 g/dL (3.5-5.0); Albumin Globulin Ratio 1.2 (1.0-2.8); Alkaline Phosphatase 121 U/L (38-126); Aspartate Aminotransferase 37 IU/L (17-59); BUN Creatinine Ratio 16.7 (6-22); Blood Urea Nitrogen 17 mg/dL (9-20); Calcium 9.3 mg/dL (8.4-10.2); Carbon Dioxide 28 mmol/L (22-32); Chloride 103 mmol/L (98-107); Estimated Glomerular Filt Rate > 60 mL/min (>60); Globulin 3.5 g/dL (1.7-4.1); Glucose 107 mg/dL (80-110); HEMOLYSIS 15 (0-50); Potassium 4.1 mmol/L (3.4-5.1); Sodium 141 mmol/L (137-145); Total Protein 7.8 g/dL (6.3-8.2)
--- NOTE | 2022-05-04 22:57 | PC.NURSE ---
Ambulation trial completed with patient using a knee immobilizer and walker. Patient's O2 sats went downto 90%, HR highest at 122. Patient denied pain, dizziness or shortness of breath. Dr. Cali notified.
[2022-05-04] MEDS: ACETAMINOPHEN 325 MG TABLET PO (23:12)
[2022-05-04] MEDS: HYDROCODONE/ACET 5/325 TABLET 1 TAB PO (23:12)
[2022-05-04] MEDS: METOPROLOL IR 25 MG TABLET PO (23:12)
[2022-05-04] MEDS: HYDROCODONE/ACET 5/325 PREPACK 1 BOTTLE MISC (23:13)
== END 2022-05-04 23:40 | disposition home or self-care (01) ==
PROVIDERS: Emergency Medicine; Emergency Provider Emergency Medicine; PCP Student in an Organized Health Care Education/Training Program
DX: S82.002A Unspecified fracture of left patella, initial encounter for closed fracture (principal); S16.1XXA Strain of muscle, fascia and tendon at neck level, initial encounter; M25.062 Hemarthrosis, left knee; S02.19XA Other fracture of base of skull, initial encounter for closed fracture; S05.11XA Contusion of eyeball and orbital tissues, right eye, initial encounter; M25.511 Pain in right shoulder; I48.11 Longstanding persistent atrial fibrillation; Z79.01 Long term (current) use of anticoagulants; W18.30XA Fall on same level, unspecified, initial encounter; Z79.899 Other long term (current) drug therapy
CPT/HCPCS: 36415; 70450; 70486; 71101; 72125; 72141; 73030; 73060; 73502; 73560; 80053; 85025; 85610; 96374; 96375; 99285; J2270; J2405

== ENCOUNTER 2022-05-14 11:00 | Inpatient (IN) | payer OTHER, SELFPAY ==
[2020-08-18 16:55] VITALS: BMI 24.0
[2022-05-11 12:05] VITALS: BMI 23.7
[2022-05-13] VITALS (12 sets, daily range): BP systolic 140–167; BP diastolic 82–109; PULSE 89–129; RESP 13–20; TEMP 36.6–37.2; O2SAT 91–98; BMI 23.7
[2022-05-13] MEDS: LACTATED RINGERS 1,000 ML 100 ML IV ×2 (09:07→12:28)
--- NOTE | 2022-05-13 11:06 | PM.PREOP ---
Pre-operative Note Interval Note History & Physical reviewed/Exam performed by Physician: Yes Changes to H&P: No
[2022-05-13] MEDS: CEFAZOLIN 2 GM/100 ML PREMIX 100 ML IV ×2 (11:38→19:53)
[2022-05-13] MEDS: BUPIVACAINE 0.5% W/ EPI (PF) 30 ML VIAL INJ (11:43)
--- NOTE | 2022-05-13 11:46 | SUR.OPER ---
Supine on padded OR bed, head on pillow, arms secured on padded arm boards at <90 degrees abduction, legs uncrossed, safety belt at thigh, tape over blanket over right leg, towel stack under left leg, bump under left hip. Pt positioned per direction and supervision of Dr Lopez.
--- NOTE | 2022-05-13 13:06 | P.OP_ITS ---
Operative Date/Time/Diagnoses Date of procedure: 05/13/22 Time of procedure: 13:09 Pre-op diagnosis: Left patella fracture, closed Post-op diagnosis: same Procedure & Clinicians Procedure: ORIF left patella Same procedure as scheduled: Yes Indications: Indications: This is an 81-year-old male who sustained a ground level fall suffering a patellar fracture. He was seen at an outside ED where imaging was taken and the patient was placed into a knee immobilizer. On my exam, patient is unable to perform a straight leg raise. In order to restore the extensor mechanism, they are indicated for operative fixation of the patella. Surgeon: Nabeel Lopez Appliance Assembler: Meghan Ellis Anesthesia Type: General Operative Notes Findings: Three-part patellar fracture as noted on x-ray and under direct visualization Closure Type: primary Specimen(s): none sent Prosthetic devices, grafts, tissues, transplants, or devices: Implants: 2 partially-threaded Arthrex screws with a FiberTape Estimated Blood Loss (mL): 20 Blood products transfused: none Tourniquet time (min): 70 Procedure in detail: Procedure: Patient was seen in the preoperative holding area. We again discussed the risks and benefits of surgery including the risks of infection, failure of hardware, damage to internal structures, need for future surgery, anesthesia and . Patient expressed understanding and wished to go forward with surgery. The correct left lower extremity was marked with my initials. Patient was then brought back to the operating room and transferred to the operating table supine. The patient underwent smooth induction of anesthesia. The leg was placed on a bump, and a tourniquet was applied to the upper thigh. Standard sterile prep and drape was performed. We then performed a time-out and my initials were again confirmed the correct operative extremity. The tourniquet was inflated to 250 mmHg. I began with a direct midline incision over the patella down to the patellar tendon, bone of the patella and the quadriceps tendon. It was noted that this time that there was a patellar fracture in a peace sign, 3 parts. Fracture reduction was completed with large pointed reduction clamps. Telephone a guidewires were placed through the fracture and confirmed to be in the right position on fluoroscopy. These were then over-drilled and measured and partially threaded cannulated screws were placed. Then, through the screws a FiberTape was brought through in a figure of 8 pattern. This was then tied distally with the aid of a tensioner. The retinaculum was then closed with FiberWire. The wound was thoroughly irrigated and closed with 2-0 PDS and Monocryl. Wound was then dressed with an Aquacel. The patient was then placed into a knee immobilizer and brought to the postoperative recovery unit without any complications. Complications: none Post-operative Condition: stable Disposition: PACU Plan for aftercare: Aftercare: Patient will remain in a knee immobilizer for 2 weeks after which they will be transitioned to a hinged knee brace in clinic at the 2 week neo. No weight-bearing until 2 weeks and then only when the hinged knee braces locked in extension and with crutches or a walker. We will start a flexion progression starting at 6 weeks. Aquacel dressing to remain on for 2 weeks. This will be removed in clinic as well as the underlying brayden (if present). Okay to shower with soap and water running over top of the dressing. NOTE: If water gets underneath the dressing, please remove the dressing and replace with clean dry 4x4s.
--- NOTE | 2022-05-13 13:40 | DI.RAD.S_ITS ---
PROCEDURE: XR KNEE LT 1TO2V INDICATIONS: PATELLA REPAIR TECHNIQUE: 3 views of the knee were acquired. COMPARISON: [facility], , XR KNEE LT 1TO2V, 05/04/2022, 14:22. FINDINGS: 3 intraoperative images were obtained for patellar repair and screw fixation. IMPRESSION: 3 intraoperative images were obtained for patellar repair and screw fixation. Please see operative note for full details. Dictated by: Dexter Garrett M.D. on 05/13/2022 at 15:08 Approved by: Dexter Garrett M.D. on 05/13/2022 at 15:09
--- NOTE | 2022-05-13 13:53 | SUR.PHASEI ---
Valerie Fernandez CRNA notified of patients BP and HR. Patient denied shortness off breath, nausea, chest pain. Patient to discharge home and take metoprolol per routine.
[2022-05-13] MEDS: OXYCODONE IR 5 MG TABLET PO ×2 (14:28→20:44)
--- NOTE | 2022-05-13 14:52 | SUR.PHASEII ---
Patient's daughter, Letitia, at bedside. Patient and daughter expressed concern regarding NWB and his current living condition at [facility]. Alexa at the [facility] called at [phone] but she was unavailable. LM to call back, patient notified.
--- NOTE | 2022-05-13 15:46 | SUR.PHASEII ---
Dr. Lopez notified regarding patient's lack of assistance at home. Patient to be admitted per MD. Patient notified. Report called to EBONIE Chisholm.
--- NOTE | 2022-05-13 16:20 | SUR.PHASEII ---
Patient transferred to the floor with his glasses, dentures, belongings bag and walker, and was transferred to bed by slider board. Report given to Phan. VS stable. IV saline locked. Left leg brace in place, CDI. Daughter present. Dr. Lopez notifed of HR 100-130s; coumadin, Ibuprofen, aspirin order; and lora orders. Orders pending.
[2022-05-13] MEDS: WARFARIN 5 MG TABLET PO (17:29)
[2022-05-13] MEDS: SODIUM CHLORIDE 0.9% FLUSH 10 ML IV ×2 (19:50→20:57)
[2022-05-13] MEDS: SODIUM CHLORIDE 0.9% 250 ML 21 ML IV (19:53)
[2022-05-13] MEDS: DOCUSATE 100 MG CAPSULE PO (20:51)
[2022-05-13] MEDS: FISH OIL 1,000 MG CAPSULE 1000 MG PO (20:52)
[2022-05-13] MEDS: METOPROLOL IR 25 MG TABLET PO (20:52)
[2022-05-13] MEDS: TAMSULOSIN 0.4 MG CAPSULE PO (20:52)
[2022-05-13 21:02] LABS: INR 1.9 (0.9-1.3); Prothrombin Time 22.1 SECONDS (10.1-12.7)
[2022-05-14] MEDS: OXYCODONE IR 5 MG TABLET 10 MG PO (00:35)
[2022-05-14] MEDS: OXYCODONE IR 5 MG TABLET PO ×4 (02:30→19:05)
[2022-05-14] MEDS: MELATONIN 3 MG TABLET PO (02:31)
--- NOTE | 2022-05-14 02:48 | PC.NURSE ---
Pt. C/O pain even after medicated with 10 mg. of Oxycodone. Also concerned about his BP & insomnia. sales audit clerk MD notified with patient complains. Orders received to change dosing frequency of the Oxycodone to every 3 hrs. PRN & give Melatonin for sleep. Orders implemented, will cont. POC & monitor.
[2022-05-14] MEDS: CEFAZOLIN 2 GM/100 ML PREMIX 100 ML IV (03:32)
[2022-05-14] MEDS: SODIUM CHLORIDE 0.9% FLUSH 10 ML IV ×4 (03:33→21:05)
[2022-05-14 03:45] VITALS: BP 151/89; PULSE 86; RESP 17; TEMP 36.6; O2SAT 95
[2022-05-14 06:29] LABS: Hematocrit 35.7 % (41-53); Hemoglobin 12.2 g/dL (13.5-17.5); Mean Corpuscular HGB Conc 34.2 % (30-36); Mean Corpuscular Hemoglobin 30.3 PG (26-34); Mean Corpuscular Volume 88.6 fL (80-100); Platelet Count 197 X10^3/uL (150-400); Red Blood Cell Count 4.03 X10^6/uL (4.5-5.9); Red Cell Distribution Width 13.1 % (11.6-14.8); White Blood Cell Count 10.2 X10^3/uL (4.5-11.0)
[2022-05-14] MEDS: LEVOTHYROXINE 100 MCG TABLET 200 MCG PO (06:29)
[2022-05-14 08:00] VITALS: BP 141/76; PULSE 80; RESP 18; TEMP 37.1; O2SAT 95
--- NOTE | 2022-05-14 08:09 | PC.NURSE ---
Pt alert and oriented asking about going home. Offers no overt c/o other than i\I have to keep wgt off this leg for two weeks?
[2022-05-14] MEDS: METOPROLOL IR 25 MG TABLET PO ×2 (10:05→21:02)
[2022-05-14] MEDS: TAMSULOSIN 0.4 MG CAPSULE PO ×2 (10:06→21:02)
[2022-05-14] MEDS: SERTRALINE 50 MG TABLET 25 MG PO (10:06)
[2022-05-14] MEDS: MULTIVITAMIN 1 TABLET 1 TAB PO (10:06)
[2022-05-14] MEDS: DOCUSATE 100 MG CAPSULE PO ×2 (10:06→21:02)
[2022-05-14] MEDS: FISH OIL 1,000 MG CAPSULE 1000 MG PO (10:06)
[2022-05-14] MEDS: ATORVASTATIN 20 MG TABLET 40 MG PO (10:07)
[2022-05-14] MEDS: ACETAMINOPHEN 325 MG TABLET 650 MG PO ×3 (11:12→23:06)
--- NOTE | 2022-05-14 11:28 | PM.PNPO.1 ---
Subjective Subjective Date Patient Seen: 05/14/22 Time Patient Seen: 10:00 Interval history: Patient is sitting upright in bed this morning with his daughter at bedside. Patient states that he was having uncontrolled pain last night and was told that he was unable to have medication. He also complains that he had a bout of high blood pressure and felt that the decision making process for not treating with medication was not shared adequately with him. Exam Vital Signs (past 8 hours): - 05/14/22 03:45 05/14/22 08:00 Temperature 97.8 F 98.8 F Pulse Rate 86 80 Respiratory Rate 17 18 Blood Pressure 151/89 H 141/76 H Pulse Oximetry 95 95 Oxygen Flow Rate 0 Oxygen Delivery Method Room Air Oxygen Flow Rate 0 Narrative Exam Narrative: Awake, alert, and oriented. Strength and sensation intact to bilateral lower extremities. Left knee immobilizer in place. Intraoperative dressing is clean, dry, and intact with overlying Kristian bandage. Bilateral calves are soft, compressible, nontender with no palpable cords or masses. Objective Labs 05/14/22 05:40 Labs: Laboratory Results - last 24 hr 05/13/22 05/14/22 20:48 05:40 WBC 10.2 RBC 4.03 L Hgb 12.2 L Hct 35.7 L MCV 88.6 MCH 30.3 MCHC 34.2 RDW 13.1 Plt Count 197 PT 22.1 H D INR 1.9 H PFSH Medical History Bilateral inguinal hernia without obstruction or gangrene CAD (coronary artery disease) Cervical stenosis of spinal canal CVA (cerebral vascular accident) (08/2020) Depression Easy bruisability Fall (05/04/22) Fracture of head of right humerus (02/08/19) HLD (hyperlipidemia) HX: anticoagulation Hypertension Hypothyroidism Osteoarthritis Surgical History H/O vasectomy History of cataract extraction History of heart artery stent (~2003) Hx of hernia repair (08/13/20) Family History Mother Cancer Social History marital status: household members: none and other Smoking Status: Former smoker alcohol intake: never substance use type: does not use Assessment & Plan Post-op Postoperative Procedures: Procedures Operation Date: 05/13/22 10:45 Actual Procedure Side Surgeon p Operative fixation patella Left Nabeel Lopez MD Postoperative day: 1 Postoperative status: doing well Postoperative status narrative: Progressing as expected after surgery. Postoperative plan: routine post-op care Postoperative plan narrative: Patient and daughter have decided with insight from physical therapy that the patient should be discharged to nursing home facility for continued rehab before returning to assisted living where he resides. Daughter states that some additional help is available at the assisted living, though this is just in the form of a med tech who takes basic vitals and dispenses the patient's medications. Due to his current condition and assistance needed for ambulation, nursing home facility is indicated. Patient normally self caths, will keep Pizarro in place until patient is able to catheterize himself as normal. Will trial this before discharge to SNF. Patient will remain in a knee immobilizer for 2 weeks after which they will be transitioned to a hinged knee brace in clinic at the 2 week neo. No weight-bearing until 2 weeks and then only when the hinged knee braces locked in extension and with crutches or a walker. We will start a flexion progression starting at 6 weeks. Aquacel dressing to remain on for 2 weeks. This will be removed in clinic as well as the underlying brayden (if present). Okay to shower with soap and water running over top of the dressing. NOTE: If water gets underneath the dressing, please remove the dressing and replace with clean dry 4x4s. Quality VTE Deep Vein Thrombosis/Pulmonary Embolism Present on Admission: No
[2022-05-14 12:00] VITALS: BP 149/90; PULSE 71; RESP 18; TEMP 37; O2SAT 96
--- NOTE | 2022-05-14 12:12 | PT.IIE ---
Current Diagnoses Displaced transverse fracture of left patella, initial encounter for closed fracture (05/13/22) Surgery Performed Operation Date: 05/13/22 10:45 Actual Procedures p Operative fixation patella(Left) - Nabeel Lopez MD Surgical History (Last Reviewed 05/14/22 @ 11:32 by Sophia Del Rosario PA-C) H/O vasectomy History of cataract extraction History of heart artery stent (~2003) Hx of hernia repair (08/13/20) Medical History (Last Reviewed 05/14/22 @ 11:32 by Sophia Del Rosario PA-C) Bilateral inguinal hernia without obstruction or gangrene CAD (coronary artery disease) Cervical stenosis of spinal canal CVA (cerebral vascular accident) (08/2020) Depression Easy bruisability Fall (05/04/22) Fracture of head of right humerus (02/08/19) HLD (hyperlipidemia) HX: anticoagulation Hypertension Hypothyroidism Osteoarthritis Physical Therapy Inpatient Evaluation/Re-Eval M1 PT/OT-IP Prior Functional Status Start: 05/14/22 11:45 Freq: Status: Active Protocol: Document 05/14/22 11:45 BC (Rec: 05/14/22 12:12 BC [id number]) Medical Review Prior Functional Status Medical History Reviewed Yes Communication WNL Mobility and Gait Ambulates Independently. Walks his dog. Does not use assistive device. Activities of Daily Living and IADL's Independent with self care ADLs. Has assist for meals at [facility]. Prior Functional Level (Other details) Pt and dtr report he was independent and active prior to patellar fx on 05/04/22. After this fracture he was using a FWW and knee immobilizer at his [facility]. He did sustain another fall on while using a FWW and LLE knee immobilizer. Social History Household Members none,other Living Arrangements Assisted Living Number of Floors (Floors) One Floor Number of Stairs To Enter/Railing? 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 Pt recently lost his spouse. M2 PT-IP Current Condition Start: 05/14/22 11:45 Freq: Status: Active Protocol: Document 05/14/22 11:45 BC (Rec: 05/14/22 12:12 [id number]) Physical Therapy Current Condition Current Condition Evaluation Date 05/14/22 Treatment Diagnosis Patellar fx s/p ORIF; difficulty with ambulation Onset Date 05/13/22 M3 PT-IP Subjective Start: 05/14/22 11:45 Freq: Status: Active Protocol: Document 05/14/22 11:45 BC (Rec: 05/14/22 12:12 [id number]) Subjective Physical Therapy Visit Type Type Initial Evaluation Visit Start Time 09:00 Visit Stop Time 09:45 Total Visit Minutes 39 Physical Therapy Visit Comments Patient Comments Pt and dtr reporting concerns about pain medication mgmt and overall care provided during hourly shift manager. Request to speak with charge nurse. This PT notified nsng. Patient Goals To determine safest discharge plan Therapy Pain Assessment Pain When Pain Assessed During Mobility Pain Present Pain Present Pain Reported Location left hip Intensity 6 Description Sharp Pain Behaviors Facial Grimacing M4 PT-IP Mobility and Gait Start: 05/14/22 11:45 Freq: Status: Active Protocol: Document 05/14/22 11:45 BC (Rec: 05/14/22 12:12 [id number]) PT-Bed Mobility Assessment Rolling Level of Assist Minimal Assistance Supine to Sit Supine to Sit Minimal Assistance Sit to Supine Sit to Supine Minimal Assistance Scooting Scooting to Edge of Bed Standby Assistance PT-Transfer Assessment Sit to and From Stand Sit to and from Stand Contact Guard Assistance Equipment Transfer Assistive Device Gait Belt,Standard Walker Orthotic/Prosthetic Devices or Brace: Yes Transfers Transfer Destination Bed Transfer Technique Stand Pivot Transfer Ability Level of Assist Minimal Assistance Comments Mobility Comments Pt receptive to demonstration on NWB transfers. He completed sit<>stand and stand pivot transfer with 1 episode of touch down on LLE which he immediately corrected. Min A for balance and proper walker distance. Gait Assessment Gait Gait Assistance Required: Minimum Assistance Distance (Feet) 10 Able to Maintain Weight Bearing Status Yes During Gait Assistive Devices Assistive Device Gait Belt,Standard Walker Orthotic/Prosthetic Devices or Brace: Yes Gait Deviations General Gait Pattern Decreased Stride Length,Flexed Trunk Factors Limiting Gait Function Factors Limiting Gait Function Decreased Strength,Limited Range of Motion,Pain,Poor Balance Comments Gait Comments Swing to gait pattern with cues for smaller steps due to pushing LLE up against anterior portion of walker with posterior LOB needing min A. Use of standard walker vs FWW due to recent fall over weekend with Pt using FWW pre- surgery. He is now NWB and upon discussion we determined use of standard walker felt safer for Pt. Gait is slow and labored while maintaining NWB . He could only tolerate ~10' before resting due to fatigue of UE's and increasing pain. Stair Climbing Assessment Comments Stair Climbing Comments Not required PT-Balance Assessment Sitting Balance and Reactions Static Sitting Balance Ability Normal Dynamic Sitting Balance Ability Normal Standing Balance and Reactions Static Standing Balance Ability Fair Dynamic Standing Balance Ability Poor Device Used Standard walker M5 PT-IP Objective Assessments Start: 05/14/22 11:45 Freq: Status: Active Protocol: Document 05/14/22 11:45 BC (Rec: 05/14/22 12:12 [id number]) Orientation Orientation/Cognition Level of Alertness Alert Orientation Name,Date,Place,Situation Language Function Ability No Deficits Noted Safety Awareness Understands Safety Issues Gross Range of Motion Upper Extremity ROM Assessment Within Functional Limits Lower Extremity ROM Assessment Left Impaired Impairments L knee in immobilizer. ALl other joints LLE appear WFLs with mobility Strength Upper Extremity Strength Assessment Within Functional Limits Lower Extremity Strength Assessment Left Impaired Hip functionally at least 4/5 Knee not tested Ankle 5/5 Comments Strength Comments Hx of R shoulder pain that was exacerbated with this recent fall on 05/04/22. Imaging in ED completed with no acute processes. Pt states the pain has subsided and is back to baseline. Coordination Assessment Gross Coordination Gross Coordination WNL M6 PT-IP Treatment Start: 05/14/22 11:45 Freq: Status: Active Protocol: Document 05/14/22 11:45 BC (Rec: 05/14/22 12:12 [id number]) Physical Therapy Treatment Education Education Provided Weight Bearing Status,Safety M7 PT-IP Assessment and Plan Start: 05/14/22 11:45 Freq: Status: Active Protocol: Document 05/14/22 11:45 BC (Rec: 05/14/22 12:12 [id number]) PT Summary Assessment and Plan Potential Rehabilitation Potential Excellent Status of Condition at Evaluation Stable Summary Impairments Pain,ROM,Strength,Balance,Bed Mobility,Transfers,Gait, Activity Tolerance Progress Towards Goals Progressing Toward Goals Assessment Summary Pt admitted following surgery for LLE patellar fx that occurred on 05/04/22. Pt is s/p ORIF and is to be NWB for 2 weeks on LLE. He went home from ED following initial fx with knee immobilizer and FWW. Surgery was performed later due to anticoagulation treatment. During this time at his [facility] apartment, Pts dtr reports, he had a fall on 05/07. Pt's PLOF is typically independent with ADLs, self cath, gait and caring for his dog. CLOF: Pt is requiring min to CGA for bed mobility, sit to stand transfers and ambulation of ~10 feet. He was unable to walk further due to fatigue reported in BUE's and increasing LLE pain. He is requiring additional assistance for basci mobility. He has multiple falls risk factors. Recommending SNF for daily therapy to progress independence with transfers, ambulation, don/doff knee immobilizer and self care ADL training. Goals Bed Mobility Goal Independent Transfer Goal Standby Assistance Gait Goal Standby Assistance Gait Distance 30 Other Goals Pt will don/doff knee immobilizer with min A and ability to verbalize directions to variety of caregivers at [facility]. Days to Meet Goals 4 Frequency of Treatment Frequency Of Treatment Once a Day Treatment Plan Physical Therapy Treatment Plan Bed Mobility Training,Transfer Training,Gait Training, Therapeutic Exercise,Balance Retraining,Post Op Education, Neuromuscular Re-ed Precautions Brace LLE knee immobilizer Weight Bearing Status Weight Bearing Status Non-Weight Bearing Recommendations To Nursing Amount of Assist Needed 1 Person Assist Discharge Recommendations PT Discharge Recommendations SNF Rehab Transportation Needs at Discharge Wheelchair/Cabulance
--- NOTE | 2022-05-14 14:44 | CM.DANOTE ---
Addendum entered by MANUEL García 05/15/22 16:04: ADD: Nohelia at [facility] accepts for admission. Auth started 05.14.22. Listened to VM today from a call last night from [facility]; asks what facility patient is discharging to since both [facility] and [facility] submitted auth. This DRAPERY ESTIMATOR updated Juju at [facility] Tuesday afternoon that [facility] accepted, Juju had already submitted auth Attempted call to [facility] P [phone] to update on [facility] and remained on hold until no longer could stay at the desk. Was not able to attempt another call r/t caseload demands Will ask that the oncoming web content & social media manager attempt contact w/[facility] and update patient's daughter w/[facility] acceptance. Patient's admission to the SNF may be delayed until Tuesday r/t [employer] auth (?) Transport TBD JW Original Note: Initial DCP Assessment Note Pt is an 81 yo male, resident at [facility] (Assisted Living) , now POD#1 from ORIF patella PCP: Rosi Jesus Payer: [facility] Met w/patient and his daughter at bedside this morning, introduced self and role. Patient is [facility]. Patient lives in the assisted living side [facility] and states this is going very well. Patient was indp and active before falling and breaking his patella. Daughter lives in [place] and works time clock mechanic. Daughter tearful today, shares that patient's spouse last month and meanwhile she has felt patient's care and follow up has been less than optimal since his initial fall weeks ago. Patient hopeful to return home but open to recommendations from PT PT Doris entered room for her initial eval, learned later that SNF being recommended Returned to room with CM IPAD to review SNF choices electronically on medicare.gov, discussed need for an in network SNF ([facility]) and patient and his daughter place the following as their choices: 1. [facility] 2. [facility] 3. [facility] and [facility] JASE Rogers [facility], has kindly agreed to fax all of these facilities. Nohelia at [facility] states high census and it is unlikely this referral will be reviewed today, no admissions likely until next week. Spoke w/ Juju at [facility], also high census. Juju will review and discuss w/her team, she may be able to start [employer] auth request this afternoon, awaiting CB from Juju Updated patient and dtr Letitia w/above, patient requests this DRAPERY ESTIMATOR coordinate w/his dtr for DC planning efforts. Patient trusts his daughter to go over things w.him in a way he understands. Plan: Anticipate need for SNF, attempting now. Will plan to contact [facility] as needed, patient may inevitably return home if no SNF secured MANUEL Russell Discharge Planning/Care Management CM Discharge Assessment Start: 05/14/22 14:10 Freq: Status: Active Protocol: Document 05/14/22 14:10 ROCCO (Rec: 05/14/22 14:44 [id number]) Discharge Planning Assessment Assigned Knot Borer MANUEL Addison DPOA/Assigned Designee Name juliette Gillespie Contact Information [phone] Advance Directives? Yes Advance Directives on File No History Provided By Patient,Family Member,Medical Record Comment ER 1.23 GLF, broken patella Prior Living Arrangements Assisted Living Comment ASSISTED LIVING Household Members none,other Type of transporation used prior to Relies on Others admit Facility Name Admitted From: [facility] Willing to Return to Facility? Yes Independent with ADL's Yes: Ambulates Indp Is patient alert and oriented? Yes Needs Assistance With Meal Prep,Managing Medications ,Home Chores / Shopping Comment SBA for showers as needed Patient/Family Preference Jail Facility Barriers to Discharge Yes Comment Patient lives at [facility], wants to go home however w/NWb-ing status x2 weeks PT has recommended SNF and patient/ dtr agreeable Discharge Plan Jail Facility Transportation Arrangement Likely w/c Referrals Initiated Jail Medicare Choice List Provided Yes Medicare choice list reviewed on patient,family electronic tablet with SNF/HH Preference 1. [facility] 2. [facility] 3. [facility] and [facility] Has Agency SNF been contacted Yes Comment [facility] MCR Whiteboard Updated in Patient Room with Yes name and ext. # of Knot Borer
[2022-05-14 16:00] VITALS: BP 135/75; PULSE 78; RESP 18; TEMP 37.1; O2SAT 97
[2022-05-14] MEDS: WARFARIN 5 MG TABLET PO (17:21)
[2022-05-14 19:47] VITALS: BP 122/73; PULSE 81; RESP 18; TEMP 36.6; O2SAT 97
--- NOTE | 2022-05-14 22:14 | PC.NURSE ---
Patient is alert and oriented. Is [place] and does not currently have hearing aids (states he needs new ones). Breath sounds CTA with RA sat of 97%. HRR w/murmur. Denied nausea. BT present and abdomen is soft; states he had a small BM on previous shift. Indwelling catheter is patent; urine is clear, yellow. Is able to move himself in bed. Left LE is in immobilizer and CMS is intact except he is only able to lift his leg slightly off bed. Refuses SCD's as he states it makes his left leg hurt more; reminded to ankle wave. Given oxycodone at shift change and pain was down to 3/10 and is currently asleep. Fall risk score is high and bed alarm is activated.
[2022-05-14 23:44] VITALS: BP 151/96; PULSE 84; RESP 16; TEMP 36.6; O2SAT 98
[2022-05-15 04:00] VITALS: BP 152/85; PULSE 81; RESP 17; TEMP 36.6; O2SAT 97
[2022-05-15] MEDS: ACETAMINOPHEN 325 MG TABLET 650 MG PO ×4 (04:55→22:29)
[2022-05-15] MEDS: LEVOTHYROXINE 100 MCG TABLET 200 MCG PO (06:51)
[2022-05-15 08:32] VITALS: BP 140/94; PULSE 89; RESP 17; TEMP 36.6; O2SAT 96
--- NOTE | 2022-05-15 08:47 | P.PN_ITS ---
Subjective Subjective Date Patient Seen: 05/15/22 Time Patient Seen: 08:47 Interval history: Postop day 2 patella ORIF left knee. Patient is an 81-year-old male that had an ORIF of the left patella fracture with Dr. Lopez on 05/13/22. Doing well today. Pain is controlled he states that 0 or 1/ 10. He is had a rough month been loss of his spouse and difficult mobility and then this fall and injury. He was concerned about his blood pressure measurements yesterday which were in the 140s and 150 systolics. He is had additional measurements since then was 120 systolics. He also expressed some concerns and confusion about the differences in ways pain medication has been taken. Previous to surgery he was taking pain medication on a scheduled basis and then in the hospital is based on a pain scale metric which was different for him and had to make some adjustments. He seems to be adjusting to this now. He worked with Physical therapy and was recommended for prison discharge so he is awaiting placement Exam Vital Signs (past 8 hours): - 05/15/22 04:00 05/15/22 08:32 Temperature 97.8 F 97.9 F Pulse Rate 81 89 Respiratory Rate 17 17 Blood Pressure 152/85 H 140/94 H Pulse Oximetry 97 96 Oxygen Flow Rate 0 0 Oxygen Delivery Method Room Air Oxygen Flow Rate 0 Narrative Exam Narrative: Alert oriented male in no acute distress lying in bed. He has ecchymosis on his face that is resolving Lungs are clear Heart regular rate Afebrile No acute distress Left leg with Kristian wrap Aquacel in place. Moderate swelling as expected in early postoperative. Demonstrates dorsiflexion plantar flexion of the ankle. Calf and thigh are soft. Pizarro catheter in place with yellow urine. Objective Labs 05/14/22 05:40 [facility] Medical History Bilateral inguinal hernia without obstruction or gangrene CAD (coronary artery disease) Cervical stenosis of spinal canal CVA (cerebral vascular accident) (08/2020) Depression Easy bruisability Fall (05/04/22) Fracture of head of right humerus (02/08/19) HLD (hyperlipidemia) HX: anticoagulation Hypertension Hypothyroidism Osteoarthritis Surgical History H/O vasectomy History of cataract extraction History of heart artery stent (~2003) Hx of hernia repair (08/13/20) Family History Mother Cancer Social History marital status: household members: none and other Smoking Status: Former smoker alcohol intake: never substance use type: does not use Assessment & Plan Post-op Postoperative Procedures: Procedures Operation Date: 05/13/22 10:45 Actual Procedure Side Surgeon p Operative fixation patella Left Nabeel Lopez MD Postoperative day: 2 Postoperative status: doing well Postoperative status narrative: Doing well. We discussed that his perioperative moderate hypertension is not something that should be treated. We discussed well published studies including the Fady article from 2020 that demonstrated over treatment of hypertension in hospitalized patients lead to worse outcomes and discussed that his other vital signs are normal and does not have any evidence that more aggressive treatment is necessary at this time. Discussed pain control. We discussed the reasons for the pain scales in the hospital versus ability to take scheduled pain medications as an outpatient and balancing on nonnarcotic medications with narcotic medications. He can take Tylenol. He can not take anti-inflammatories because he is on anticoagulation with warfarin. Postoperative plan: routine post-op care Postoperative plan narrative: 1. Weightbear as tolerated in knee immobilizer. Work with therapy. Awaiting sniff placement 2. Restarting home anticoagulation. Appreciate pharmacy monitoring. 3. Normally self catheterization at home.-will trial removal of Pizarro and returned to self cathing today. Time Spent With Patient Time with patient: 15-24 minutes Quality VTE Deep Vein Thrombosis/Pulmonary Embolism Present on Admission: No
[2022-05-15] MEDS: SERTRALINE 50 MG TABLET 25 MG PO (08:52)
[2022-05-15] MEDS: ATORVASTATIN 20 MG TABLET 40 MG PO (08:52)
[2022-05-15] MEDS: FISH OIL 1,000 MG CAPSULE 1000 MG PO (08:52)
[2022-05-15] MEDS: SODIUM CHLORIDE 0.9% FLUSH 10 ML IV ×2 (08:53→20:11)
[2022-05-15] MEDS: DOCUSATE 100 MG CAPSULE PO ×2 (08:53→20:11)
[2022-05-15] MEDS: METOPROLOL IR 25 MG TABLET PO ×2 (08:53→20:11)
[2022-05-15] MEDS: MULTIVITAMIN 1 TABLET 1 TAB PO (08:53)
[2022-05-15] MEDS: TAMSULOSIN 0.4 MG CAPSULE PO ×2 (08:54→20:11)
--- NOTE | 2022-05-15 12:00 | PT.IPTN ---
Current Diagnoses Displaced transverse fracture of left patella, initial encounter for closed fracture (05/14/22) Surgery Performed Operation Date: 05/13/22 10:45 Actual Procedures p Operative fixation patella(Left) - Nabeel Lopez MD Physical Therapy Treatment Note M2 PT-IP Current Condition Start: 05/14/22 11:45 Freq: Status: Active Protocol: Document 05/14/22 11:45 BC (Rec: 05/14/22 12:12 BC [id number]) Physical Therapy Current Condition Current Condition Evaluation Date 05/14/22 Treatment Diagnosis Patellar fx s/p ORIF; difficulty with ambulation Onset Date 05/13/22 M3 PT-IP Subjective Start: 05/14/22 11:45 Freq: Status: Active Protocol: Document 05/15/22 12:00 AB (Rec: 05/15/22 13:10 AB [id number]) Subjective Physical Therapy Visit Type Type Treatment Note Visit Start Time 12:00 Visit Stop Time 12:24 Total Visit Minutes 24 Number of LEVEL VIAL GRINDER Visits 0 Physical Therapy Visit Comments Patient Comments agreeable to do PT Therapy Pain Assessment Pain Present Pain Present Denied Pain M4 PT-IP Mobility and Gait Start: 05/14/22 11:45 Freq: Status: Active Protocol: Document 05/15/22 12:00 AB (Rec: 05/15/22 13:10 AB [id number]) PT-Bed Mobility Assessment Supine to Sit Supine to Sit Standby Assistance PT-Transfer Assessment Sit to and From Stand Sit to and from Stand Minimal Assistance Equipment Transfer Assistive Device Standard Walker Orthotic/Prosthetic Devices or Brace: Yes Transfers Transfer Destination Chair Transfer Technique ambulated Transfer Ability Level of Assist Minimal Assistance Comments Mobility Comments pt supine in bed. adjusted knee immobilizer. pt completed supine to sit SBA with HOB elevated. pt used RLE to move LLE. pt able to sit on EOB SBA. reviewed NWB restriction on LLE and educated on sit<>stand transfer techniques. pt completed sit to stand min A and cues and able to take steps ~ 3 ft using standard walker min A and max cues for NWB. pt with slight LOB posteriorly while moving std walker forward. educated pt on use of FWW. pt completed sit to stand from the chair min A and max cues for NWB on LLE. completed ambulation in room ~ 10 ft using FWW min A. cued for steadiness and shorter strides. pt sat back on chair. positioned on chair . call light and table placed within reach. Gait Assessment Gait Gait Assistance Required: Minimum Assistance Distance (Feet) 10 Assistive Devices Assistive Device Gait Belt,Front Wheeled Walker Orthotic/Prosthetic Devices or Brace: Yes Gait Deviations General Gait Pattern Decreased Stride Length, Decreased Feet Clearance Factors Limiting Gait Function Factors Limiting Gait Function Decreased Activity Tolerance, Decreased Strength,Limited Range of Motion,Poor Balance, Poor Safety Awareness M5 PT-IP Objective Assessments Start: 05/14/22 11:45 Freq: Status: Active Protocol: Document 05/14/22 11:45 BC (Rec: 05/14/22 12:12 BC [id number]) Orientation Orientation/Cognition Level of Alertness Alert Orientation Name,Date,Place,Situation Language Function Ability No Deficits Noted Safety Awareness Understands Safety Issues Gross Range of Motion Upper Extremity ROM Assessment Within Functional Limits Lower Extremity ROM Assessment Left Impaired Impairments L knee in immobilizer. ALl other joints LLE appear WFLs with mobility Strength Upper Extremity Strength Assessment Within Functional Limits Lower Extremity Strength Assessment Left Impaired Hip functionally at least 4/5 Knee not tested Ankle 5/5 Comments Strength Comments Hx of R shoulder pain that was exacerbated with this recent fall on 05/04/22. Imaging in ED completed with no acute processes. Pt states the pain has subsided and is back to baseline. Coordination Assessment Gross Coordination Gross Coordination WNL M6 PT-IP Treatment Start: 05/14/22 11:45 Freq: Status: Active Protocol: Document 05/15/22 12:00 AB (Rec: 05/15/22 13:10 AB [id number]) Physical Therapy Treatment Education Education Provided Weight Bearing Status,Safety M7 PT-IP Assessment and Plan Start: 05/14/22 11:45 Freq: Status: Active Protocol: Document 05/15/22 12:00 AB (Rec: 05/15/22 13:10 AB [id number]) PT Summary Assessment and Plan Potential Rehabilitation Potential Fair Summary Impairments Pain,ROM,Strength,Balance, Coordination,Sensation,Tone, Cognition,Bed Mobility, Transfers,Gait,Activity Tolerance Progress Towards Goals Slow Progress due to Activity Tolerance Assessment Summary pt requiring min A with sit to stand and ambulation using FWW. present with unsteady gait and cues to maintain NWB on LLE. pt will require SNF rehab to improve strength and mobility. Goals Bed Mobility Goal Independent Transfer Goal Standby Assistance,Front Wheeled Walker Gait Goal Standby Assistance,Front Wheel Walker Gait Distance 30 Other Goals Pt will don/doff knee immobilizer with min A and ability to verbalize directions to variety of caregivers at [facility]. Days to Meet Goals 5 Frequency of Treatment Frequency Of Treatment Once a Day Treatment Plan Physical Therapy Treatment Plan Bed Mobility Training,Transfer Training,Gait Training, Therapeutic Exercise,Balance Retraining,Post Op Education, Neuromuscular Re-ed Precautions Brace LLE knee immobilizer Weight Bearing Status Weight Bearing Status Non-Weight Bearing Allowed Weight Bearing Amount (enter % LLE NWB or #) (%) Recommendations To Nursing Amount of Assist Needed 1 Person Assist Discharge Recommendations PT Discharge Recommendations SNF Rehab Transportation Needs at Discharge Wheelchair/Cabulance
[2022-05-15 13:00] VITALS: BP 154/87; PULSE 77; RESP 16; TEMP 35.9; O2SAT 99
[2022-05-15] MEDS: WARFARIN 5 MG TABLET 7.5 MG PO (16:32)
[2022-05-15 18:18] VITALS: BP 148/95; PULSE 89; RESP 16; TEMP 36.2; O2SAT 97
[2022-05-15 20:36] VITALS: BP 146/96; PULSE 86; RESP 16; TEMP 36.3; O2SAT 99
--- NOTE | 2022-05-15 21:27 | PC.NURSE ---
Addendum entered by Yomaira Fatima R.N. 05/16/22 06:04: Has successfully self cathed x 3 this shift for total of 1325cc UOP> Original Note: Patient is alert and oriented. [place] without hearing aids in. Breath sounds CTA with RA sat of 99%. HR irregular (has hx of afib) with controlled rate; has murmur. BP consistently elevated and was 146/96 on last check; MD is aware (see prog note of 05/15). Denies nausea. BT present and had large bowel movement at shift change. Sits on edge of bed to self cath; urine is clear, yellow and patient denies dysuria. Is able to move himself in bed and reportedly up with walker and SBA; is NWB on left leg. Dressing to left knee + prosper wrap is CDI; wearing immobilizer. CMS is intact and better movement in left LE tonight. Is agreeable to wearing bilateral calf SCD tonight. Denies pain. Fall risk score is high and bed alarm is activated.
[2022-05-16 05:09] VITALS: BP 148/90; PULSE 91; RESP 15; TEMP 36.3; O2SAT 94
[2022-05-16] MEDS: ACETAMINOPHEN 325 MG TABLET 650 MG PO ×4 (05:38→22:13)
[2022-05-16] MEDS: LEVOTHYROXINE 100 MCG TABLET 200 MCG PO (05:38)
[2022-05-16 07:03] LABS: INR 1.9 (0.9-1.3); Prothrombin Time 21.5 SECONDS (10.1-12.7)
[2022-05-16 08:13] VITALS: BP 154/92; PULSE 80; RESP 17; TEMP 36.7; O2SAT 97
[2022-05-16] MEDS: SERTRALINE 50 MG TABLET 25 MG PO (08:15)
[2022-05-16] MEDS: MULTIVITAMIN 1 TABLET 1 TAB PO (08:15)
[2022-05-16] MEDS: TAMSULOSIN 0.4 MG CAPSULE PO ×2 (08:15→20:59)
[2022-05-16] MEDS: METOPROLOL IR 25 MG TABLET PO ×2 (08:15→20:59)
[2022-05-16] MEDS: FISH OIL 1,000 MG CAPSULE 1000 MG PO ×2 (08:15→20:59)
[2022-05-16] MEDS: DOCUSATE 100 MG CAPSULE PO ×2 (08:15→20:59)
[2022-05-16] MEDS: ATORVASTATIN 20 MG TABLET 40 MG PO (08:16)
[2022-05-16] MEDS: SODIUM CHLORIDE 0.9% FLUSH 10 ML IV ×2 (08:17→20:59)
[2022-05-16 11:58] VITALS: BP 124/79; PULSE 87; RESP 18; TEMP 36.3; O2SAT 97
--- NOTE | 2022-05-16 13:51 | PM.PNPO.1 ---
Subjective Subjective Date Patient Seen: 05/16/22 Time Patient Seen: 13:52 Interval history: Doing well postop day 3 left patella ORIF. Pleasant sitting up in bed today. Pain controlled. Awaiting halfway placement. Denies fevers chills nausea vomiting or headache Exam Vital Signs (past 8 hours): - 05/16/22 08:13 05/16/22 11:58 Temperature 98.1 F 97.3 F L Pulse Rate 80 87 Respiratory Rate 17 18 Blood Pressure 154/92 H 124/79 Pulse Oximetry 97 97 Oxygen Flow Rate 0 0 Oxygen Delivery Method Room Air Oxygen Flow Rate 0 Narrative Exam Narrative: Alert oriented no acute distress. Resolving ecchymosis on his face. Respiratory unlabored room air Lower extremity in dressing and knee immobilizer. Demonstrates dorsiflexion plantar flexion of the ankle. Brisk capillary refill. Palpable dorsalis pedis pulse. Calf soft Objective Labs 05/14/22 05:40 Labs: Laboratory Results - last 24 hr 05/16/22 06:02 PT 21.5 H INR 1.9 H PFSH Medical History Bilateral inguinal hernia without obstruction or gangrene CAD (coronary artery disease) Cervical stenosis of spinal canal CVA (cerebral vascular accident) (08/2020) Depression Easy bruisability Fall (05/04/22) Fracture of head of right humerus (02/08/19) HLD (hyperlipidemia) HX: anticoagulation Hypertension Hypothyroidism Osteoarthritis Surgical History H/O vasectomy History of cataract extraction History of heart artery stent (~2003) Hx of hernia repair (08/13/20) Family History Mother Cancer Social History marital status: household members: none and other Smoking Status: Former smoker alcohol intake: never substance use type: does not use Assessment & Plan Post-op Postoperative Procedures: Procedures Operation Date: 05/13/22 10:45 Actual Procedure Side Surgeon p Operative fixation patella Left Nabeel Lopez MD Postoperative day: 3 Postoperative status: doing well Postoperative status narrative: Postoperative day 3 doing well. Got his Pizarro out yesterday and has been able to self cath successfully. Back on his anticoagulation. INR 1.9 today. Being monitored by pharmacy, appreciate their assistance Weightbear as tolerated left lower extremity in knee immobilizer. Awaiting halfway placement. Postoperative plan: routine post-op care Postoperative plan narrative: Patient will remain in a knee immobilizer for 2 weeks after which they will be transitioned to a hinged knee brace in clinic at the 2 week neo. No weight-bearing until 2 weeks and then only when the hinged knee braces locked in extension and with crutches or a walker. We will start a flexion progression starting at 6 weeks. Aquacel dressing to remain on for 2 weeks. This will be removed in clinic as well as the underlying brayden (if present). Okay to shower with soap and water running over top of the dressing. NOTE: If water gets underneath the dressing, please remove the dressing and replace with clean dry 4x4s. Time Spent With Patient Time with patient: less than 15 minutes Quality VTE Deep Vein Thrombosis/Pulmonary Embolism Present on Admission: No
[2022-05-16 16:00] VITALS: BP 129/78; PULSE 81; RESP 18; TEMP 36.6; O2SAT 97
[2022-05-16] MEDS: WARFARIN 5 MG TABLET PO (17:04)
[2022-05-16 19:00] VITALS: BP 145/85; PULSE 95; RESP 19; TEMP 36.6; O2SAT 98
[2022-05-16] MEDS: MELATONIN 3 MG TABLET PO (22:14)
[2022-05-16] MEDS: OXYCODONE IR 5 MG TABLET PO (22:16)
[2022-05-17] VITALS: BP 157/91; PULSE 77; RESP 17; TEMP 36.3; O2SAT 97
[2022-05-17 03:51] VITALS: BP 149/87; PULSE 75; RESP 17; TEMP 36.4; O2SAT 97
[2022-05-17] MEDS: ACETAMINOPHEN 325 MG TABLET 650 MG PO ×2 (05:07→11:25)
[2022-05-17] MEDS: LEVOTHYROXINE 100 MCG TABLET 200 MCG PO (05:10)
--- NOTE | 2022-05-17 07:13 | P.DS_ITS ---
History of Present Illness History of Present Illness Chief complaint: ORIF LEFT PATELLA Narrative: Patient is sleeping comfortably this morning in bed. Once a week he states that he had more pain overnight then he had the past 2 nights, but it was tolerable with pain medication. he notes some discomfort with his knee immobilizer stating there was an uncomfortable spot. Knee immobilizer was readjusted to his satisfaction. Discharge Providers Provider Date of admission: 05/14/22 11:00 Discharge Date: 05/17/22 Primary care physician: Rosi Jesus PA-C Consults: 05/13/22 06:00 Consult to Anesthesiology Routine Comment: Consulting Provider: Anesthesiologist Reason for consultation: Post operative pain managment 05/13/22 16:34 Consult to Discharge Planning Routine Comment: Consult to Physical Therapy Evaluate & Treat Comment: Physician Instructions: Evaluate and Treat Discharge provider: Sophia Del Rosario PA-C Summary Hospital Course Discharge Diagnosis: Status post ORIF left patella Hospital Course: Operative Date/Time/Diagnoses Date of procedure: 05/13/22 Time of procedure: 13:09 Pre-op diagnosis: Left patella fracture, closed Post-op diagnosis: same Procedure & Clinicians Procedure: ORIF left patella Same procedure as scheduled: Yes Indications: Indications:? This is an 81-year-old male who sustained a ground level fall suffering a patellar fracture.? He was seen at an outside ED where imaging was taken and the patient was placed into a knee immobilizer.? On my exam, patient is unable to perform a straight leg raise.? In order to restore the extensor mechanism, they are indicated for operative fixation of the patella.? Surgeon: Nabeel Lopez Crusher Plant Operator: Meghan Ellis Anesthesia Type: General Operative Notes Findings: Three-part patellar fracture as noted on x-ray and under direct visualization Closure Type: primary Specimen(s): none sent Prosthetic devices, grafts, tissues, transplants, or devices: Implants:? 2 partially-threaded Arthrex screws with a FiberTape Estimated Blood Loss (mL): 20 Blood products transfused: none Tourniquet time (min): 70 Status at Discharge Cognitive/behavioral status at discharge: oriented Overall status at discharge: patient is progressing back to baseline Exam Vital Signs (past 8 hours): - 05/17/22 00:00 05/17/22 03:51 Temperature 97.4 F L 97.5 F L Pulse Rate 77 75 Respiratory Rate 17 17 Blood Pressure 157/91 H 149/87 H Pulse Oximetry 97 97 Oxygen Flow Rate 0 Oxygen Delivery Method Room Air Oxygen Flow Rate 0 Narrative Exam Narrative: Sleeping comfortably, wakes easily, alert and oriented. Right ankle dorsiflexion and plantar flexion strength 5/5. Sensation intact to bilateral lower extremities. Left knee immobilizer in place, underlying Kristian bandage and intraoperative Aquacel dressing clean, dry, and intact. Facial ecchymoses healing well. Objective Labs 05/14/22 05:40 [facility] Medical History Bilateral inguinal hernia without obstruction or gangrene CAD (coronary artery disease) Cervical stenosis of spinal canal CVA (cerebral vascular accident) (08/2020) Depression Easy bruisability Fall (05/04/22) Fracture of head of right humerus (02/08/19) HLD (hyperlipidemia) HX: anticoagulation Hypertension Hypothyroidism Osteoarthritis Surgical History H/O vasectomy History of cataract extraction History of heart artery stent (~2003) Hx of hernia repair (08/13/20) Family History Mother Cancer Social History marital status: household members: none and other Smoking Status: Former smoker alcohol intake: never substance use type: does not use Discharge Assessment & Plan Assessment and Plan Assessment: Patient progressing after ORIF of left patella. Plan of Treatment: Plan for discharge to nursing home facility once accepted. Continue with physical therapy. Patient will remain in a knee immobilizer for 2 weeks after which they will be transitioned to a hinged knee brace in clinic at the 2 week neo. No weight-bearing until 2 weeks and then only when the hinged knee braces locked in extension and with crutches or a walker. We will start a flexion progression starting at 6 weeks. Discharge Plan Discharge Plan Patient Disposition: SNF Transfer to: [facility] Discharge Comment: Toradol (NSAID) given at 1:00 PM. Discharge orders & Medications Prescriptions: New hydrocodone-acetaminophen 5-325 mg tablet 1 tab PO Q6H PRN (Reason: pain) Qty: 20 0RF ondansetron HCl 4 mg tablet 4 mg PO Q8H PRN (Reason: nausea and vomiting) Qty: 10 0RF ibuprofen 600 mg tablet 600 mg PO Q6H PRN (Reason: pain) Qty: 60 0RF Continued tamsulosin [Flomax] 0.4 mg capsule 0.4 mg PO DAILY Qty: 10 0RF amlodipine 5 mg Tablet 5 mg PO DAILY levothyroxine 25 mcg Tablet See Rx Instructions .ROUTE .COMPLEX Label Comments: home med list has 175mcg---patient thinks not updated jh 02/08 Rx Instructions: UNKNOWN AMT - PT THINKS 175 MCG metoprolol tartrate 50 mg Tablet 25 mg PO BID pramipexole 0.125 mg Tablet 0.125 mg PO BEDTIME hydrocortisone 2.5 % Ointment 1 applic TOPICAL DIRECTED cyclosporine [Restasis] 0.05 % Dropperette 1 drp OPHTHALMIC (EYE) DIRECTED multivitamin Tablet 1 tab PO DAILY terazosin 10 mg Capsule 10 mg PO BEDTIME omega 0-ben-sgu-fish oil [Fish Oil] 1,000 mg (120 mg-180 mg) Capsule 1 cap PO BID Glucosamine 1 tab PO BID oxycodone 5 mg tablet See Rx Instructions .ROUTE .COMPLEX PRN (Reason: painful procedure) Qty: 20 0RF Rx Instructions: Take 1 or 2 pills every 6 hours if needed for pain. May constipate. warfarin 7.5 mg Tablet 7.5 mg PO QMWFSA Rx Instructions: 7.5 daily x 5 days, 2 days at 5mg warfarin 5 mg Tablet 5 mg PO QTUTHSU Rx Instructions: only and Tuesday atorvastatin [Lipitor] 20 mg Tablet 80 mg PO DAILY Qty: 120 0RF aspirin 81 mg Tablet,Delayed Release (Dr/Ec) 81 mg PO DAILY Qty: 30 0RF Follow up/Referrals: Nabeel Lopez MD [Physician] - (2 weeks postop) Rosi Jesus PA-C [Primary Care Provider] - Diet/Activity/Treatments Diet: Diet as Tolerated Activity: Patient will remain in a knee immobilizer for 2 weeks after which they will be transitioned to a hinged knee brace in clinic at the 2 week neo. No weight-bearing until 2 weeks and then only when the hinged knee braces locked in extension and with crutches or a walker. We will start a flexion progression starting at 6 weeks. Cold/Heat Therapy: May apply ice to knee as needed Other treatments: Hydrocodone/acetaminophen to be taken as prescribed Zofran as needed nausea and vomiting Ibuprofen as needed pain Aspirin 81 mg b.i.d. Skin/Wound/Dressing Care Report to your healthcare provider any signs of infection, such as:: chills, fever, night sweats, increased pain, unusual drainage and unusual redness Dressing: Aquacel dressing to remain on for 2 weeks. This will be removed in clinic as well as the underlying brayden (if present). Okay to shower with soap and water running over top of the dressing. NOTE: If water gets underneath the dressing, please remove the dressing and replace with clean dry 4x4s. Visit Report/Discharge Packet Instructions: DI for Open Reduction Internal Fixation Surgery Stand Alone Forms: Patient Portal/API, Stroke Signs & Symptoms, Surgery Discharge Discharge Data Primary Care Provider: Rosi Jesus VTE Deep Vein Thrombosis/Pulmonary Embolism Present on Admission: No
[2022-05-17 07:54] VITALS: BP 162/104; PULSE 94; RESP 19; TEMP 36.7; O2SAT 97
[2022-05-17] MEDS: DOCUSATE 100 MG CAPSULE PO (08:15)
[2022-05-17] MEDS: FISH OIL 1,000 MG CAPSULE 1000 MG PO (08:15)
[2022-05-17] MEDS: METOPROLOL IR 25 MG TABLET PO (08:15)
[2022-05-17] MEDS: MULTIVITAMIN 1 TABLET 1 TAB PO (08:15)
[2022-05-17] MEDS: ATORVASTATIN 20 MG TABLET 40 MG PO (08:15)
[2022-05-17] MEDS: TAMSULOSIN 0.4 MG CAPSULE PO (08:16)
[2022-05-17] MEDS: SERTRALINE 50 MG TABLET 25 MG PO (08:16)
[2022-05-17] MEDS: SODIUM CHLORIDE 0.9% FLUSH 10 ML IV (08:16)
[2022-05-17 10:47] LABS: COVID19 -Nasal RAPID Negative (Negative)
--- NOTE | 2022-05-17 10:52 | CM.DPC ---
DCP Discharge SNF Per Ortho PA, pt remains medically stable to d/c to SNF today and completed discharge. ERMA called [facility] admissions to inquire about [employer] insurance auth and they confirm they have auth and can accept today but only time for transport is around [phone]. ERMA updated RN who kindly is getting updated COVID swab and will update pt's Dtr/niece on d/c today. ERMA contacted ortho PA to request med list to be signed and scripts to be printed and she kindly came back to complete this. ERMA faxed PASRR, signed med list, scripts, MD orders, d/c summary to [facility] to review and CC Sue kindly faxed updated COVID swab results. ERMA updated LAW OFFICE ASSISTANT and locomotive observer. Plan: Patient to d/c to [facility] for SNF rehab before returning to [facility] when more medically appropriate. MANUEL Castro
--- NOTE | 2022-05-17 11:49 | PC.NURSE ---
Discharge Note Patient A&O, VSS, RA, no complaints of pain/discomfort. PIV discontinued. Patient assisted to dress and pack all belongings. Patient assisted to wheelchair with 2p assist and FWW. Packet given to transport staff. Patient taken via wheelchair to facility vehicle.
== END 2022-05-17 11:45 | DRG 517 ==
LOC: OR 14:02 → AC 14:02
PROVIDERS: Physician Assistant; Admitting Provider Orthopaedic Surgery; PCP Student in an Organized Health Care Education/Training Program; Referring Provider Orthopaedic Surgery; Visit Provider Orthopaedic Surgery
PROC: 0QSF04Z Reposition Left Patella with Internal Fixation Device, Open Approach (ICD-10-PCS; CPT 27524; principal; 2022-05-13 10:45)
DX: S82.032A Displaced transverse fracture of left patella, initial encounter for closed fracture (principal); I10 Essential (primary) hypertension; E03.9 Hypothyroidism, unspecified; E78.5 Hyperlipidemia, unspecified; W18.30XA Fall on same level, unspecified, initial encounter; Z86.73 Personal history of transient ischemic attack (TIA), and cerebral infarction without residual deficits; Z79.01 Long term (current) use of anticoagulants; Z20.822 Contact with and (suspected) exposure to COVID-19; Z87.891 Personal history of nicotine dependence
CPT/HCPCS: 36415; 73560; 76000; 85027; 85610; 87635; 97116; 97162; 97530; C9803; A9270; J0690; J1100; J1885; J2405; J2704; J3010

== ENCOUNTER → 2022-06-08 10:23 | Outpatient (CLI) | payer OTHER, SELFPAY ==
[2022-05-13 16:09] VITALS: BMI 23.7
--- NOTE | 2022-06-08 | DI.RAD.S_ITS ---
PROCEDURE: XR DEXA AXIAL SKELETON INDICATIONS: Personal history of (healed) osteoporosis fracture COMPARISON: None. FINDINGS: This blank DEXA report has been sent in error by the PACS system. The correct and complete report will be forthcoming in 1-2 days. Thank you for your patience and understanding. Dictated by: Nidia Harrison M.D. on 06/10/2022 at 8:28 Approved by: Nidia Harrison M.D. on 07/01/2022 at 13:47
== END ==
PROVIDERS: PCP Student in an Organized Health Care Education/Training Program; Referring Provider Student in an Organized Health Care Education/Training Program; Visit Provider Student in an Organized Health Care Education/Training Program
DX: Z87.310 Personal history of (healed) osteoporosis fracture (principal); Z13.820 Encounter for screening for osteoporosis; M85.852 Other specified disorders of bone density and structure, left thigh; Z85.828 Personal history of other malignant neoplasm of skin
CPT/HCPCS: 77080

== ENCOUNTER → 2022-09-20 09:19 | Outpatient (CLI) | payer OTHER, SELFPAY ==
[2022-05-13 16:09] VITALS: BMI 23.7
--- NOTE | 2022-09-20 | DI.ECHO.S_ITS ---
[facility] +---------+ : : [address] : : : : [id number] : : : : Phone: [phone]+ Echocardiogram Report + + :Name: LORENZA CHAMBERS Study Date: 09/20/2022 Height: 73 in : :[facility] ReadingLocation: Weight: 170 lb : : Gender: Male BSA: 2.0 m2 : :: 1940 Age: 82 yrs BP: 146/97 mmHg: :Reason For Study: Aortic Valve Stenosis : :Ordering Physician: Talisha, : :Silverio Performed By: Etta Giron : :Referring: SILVERIO WOODALL : + + Interpretation Summary 1) Mildly to moderately increased left ventricular thickness (concentric) with normal size, normal wall motion, and normal systolic function (EF 55-60%). 2) Mildly enlarged right ventricle with normal function. 3) The left atrium is severely dilated., 4) There is severe aortic stenosis (valve area 0.7cm2, mean gradient 32mmHg, severity ratio 0.19). 5) There is mild to moderate mitral regurgitation. 6) There is mild to moderate tricuspid regurgitation. 7) The right ventricular systolic pressure is estimated to be at least 50 mmHg based on an estimated right atrial pressure of 15 mm Hg. 8) Compared to the Echo done 08/19/2020, aortic stenosis has progressed from moderate-severe to severe on this study. Procedure: A two-dimensional transthoracic echocardiogram with color flow and Doppler was performed. The study quality was technically adequate. Comparison is made with the echocardiogram of 08/19/2020. The patient was in normal sinus rhythm during the exam. Left Ventricle: The left ventricle is normal in size. There is mild-moderate concentric left ventricular hypertrophy. The ejection fraction is estimated to be 55-60%. Left ventricular systolic function appears normal without focal wall motion abnormalities. Diastolic parameters suggest a relaxation abnormality of the left ventricle, consistent with probable normal filling pressures. Right Ventricle: The right ventricle is mildly dilated. Right ventricular systolic function is mild to moderately reduced. Atria: The left atrium is severely dilated. The right atrium is moderately dilated. There is no Doppler evidence for an interatrial shunt. Mitral Valve: The mitral valve leaflets appear mildly thickened, but open well. There is mild mitral annular calcification. There is no mitral valve stenosis. There is mild to moderate mitral regurgitation. Aortic Valve: The aortic valve is heavily calcified. There is severe aortic stenosis. The peak aortic velocity is 3.57 m/sec. The aortic valve mean gradient is 31.5 mmHg. No aortic regurgitation is present. Tricuspid Valve: Tricuspid leaflets are thickened. There is no tricuspid stenosis. There is mild to moderate tricuspid regurgitation. The right ventricular systolic pressure is estimated to be at least 50 mmHg based on an estimated right atrial pressure of 15 mm Hg. Pulmonic Valve: The pulmonic valve is not well visualized. There is no pulmonic valvular stenosis. There is trace pulmonic regurgitation. Great Vessels: The aortic root is normal size. The ascending aorta is normal in size. The pulmonary artery is not well visualized, but is probably normal size. The IVC is dilated (diameter is greater than 2.1 cm) and it collapses less than 50% with a sniff. This suggests a high right atrial pressure of 15 mm Hg. Pericardium/ Pleura There is no pericardial effusion. There is no pleural effusion. MMode/2D Measurements & Calculations LVIDd: 3.7 cm LVOT diam: 2.2 cm LVIDs: 3.5 cm Ao root diam: 3.1 cm FS: 5.4 % asc Aorta Diam: 3.2 cm IVSd: 1.4 cm LVPWd: 2.0 cm LV asif. diameter/BSA (cm/m^2): 1.8 LV sys. diameter/BSA (cm/m^2): 1.7 LA A2 area: 32.7 cm2 RA long axis: 6.8 cm LA A4 area: 27.5 cm2 RA area: 22.7 cm2 LA length (vol): 6.8 cm RA vol: 64.2 ml LA vol: 113.1 ml RA : 32.0 ml/m2 LA vol index: 56.3 ml/m2 RVD1 (basal): 4.0 cm LVLs ap4: 6.1 cm LVLd ap2: 7.4 cm TAPSE_phl: 1.3 cm LVLs ap2: 6.2 cm Doppler Measurements & Calculations Ao V2 max: 357.0 cm/sec LVOT Max Mau: 72.2 cm/sec Ao V2 mean: 267.0 cm/sec LV V1 max P.1 mmHg Ao max P.0 mmHg LV V1 VTI: 15.7 cm Ao mean P.5 mmHg RIRI(I,D): 0.68 cm2 Ao V2 VTI: 84.3 cm RIRI(V,D): 0.73 cm2 sev ratio: 0.19 RIRI indexed to BSA (cm^2/m^2): 0.34 Med Peak E' Mau: 6.9 cm/sec TR max mau: 289.3 cm/sec Lat Peak E' Mau: 8.0 cm/sec TR max P.5 mmHg VTI: 195.0 cm SV(LVOT): 57.1 ml AV VR_phl: 0.20 RIRI(VTI)/BSA_phl: 0.26 Reading Physician:12:48 PM
== END ==
PROVIDERS: PCP Student in an Organized Health Care Education/Training Program; Referring Provider Internal Medicine Cardiovascular Disease; Visit Provider Internal Medicine Cardiovascular Disease
DX: I08.3 Combined rheumatic disorders of mitral, aortic and tricuspid valves (principal)
CPT/HCPCS: 93306

== ENCOUNTER → 2022-10-04 07:15 | Outpatient (CLI) | payer OTHER, SELFPAY ==
[2022-05-13 16:09] VITALS: BMI 23.7
[2022-10-04 09:01] LABS: Add Manual Diff / Slide Review NO; Basophils Absolute Auto 0 /uL (0-100); Basophils Percent Auto 0.5 % (0-2); Eosinophils Absolute Auto 200 /uL (0-450); Eosinophils Percent Auto 2.3 % (2-4); Hematocrit 46.3 % (41-53); Hemoglobin 15.8 g/dL (13.5-17.5); Lymphocytes Absolute Auto 1700 /uL (1100-4500); Lymphocytes Percent Auto 19.7 % (25-40); Mean Corpuscular Hemoglobin 30.4 PG (26-34); Mean Corpuscular Volume 89.4 fL (80-100); Monocytes Absolute Auto 700 /uL (0-900); Neutrophils Absolute Auto 6200 /uL (1500-7000); Neutrophils Percent Auto 69.5 % (50-75); Platelet Count 196 X10^3/uL (150-400); Red Blood Cell Count 5.18 X10^6/uL (4.5-5.9); Red Cell Distribution Width 13.9 % (11.6-14.8); White Blood Cell Count 8.9 X10^3/uL (4.5-11.0)
[2022-10-04 09:34] LABS: BUN Creatinine Ratio 19.4 (6-22); Blood Urea Nitrogen 18 mg/dL (9-20); Calcium 9.7 mg/dL (8.4-10.2); Carbon Dioxide 31 mmol/L (22-32); Chloride 101 mmol/L (98-107); Cholesterol 125 mg/dL (140-199); Estimated Glomerular Filt Rate > 60 mL/min (>60); Glucose 88 mg/dL (80-110); HDL Cholesterol 48 mg/dL (40-60); HEMOLYSIS < 15 (0-50); LDL Cholesterol Calculated 56 mg/dL (<100); Potassium 4.8 mmol/L (3.4-5.1); Sodium 139 mmol/L (137-145); Triglycerides 105 mg/dL (35-150)
== END ==
PROVIDERS: PCP Student in an Organized Health Care Education/Training Program; Referring Provider Internal Medicine Cardiovascular Disease; Visit Provider Internal Medicine Cardiovascular Disease
DX: E78.5 Hyperlipidemia, unspecified (principal); I10 Essential (primary) hypertension
CPT/HCPCS: 36415; 80048; 80061; 85025

== ENCOUNTER → 2023-08-20 08:49 | Outpatient (CLI) | payer MEDICARE, SELFPAY ==
[2022-05-13 16:09] VITALS: BMI 23.7
--- NOTE | 2023-08-20 | DI.MRI.S_ITS ---
PROCEDURE: MR HEAD/BRAIN WO/W CON INDICATIONS: memory loss TECHNIQUE: Noncontrast axial T1 spin echo, axial T2 fast spin echo, sagittal and axial FLAIR, coronal T2 fast spin echo, axial gradient echo, axial diffusion and ADC through the brain. After the administration of contrast, axial and coronal and sagittal T1 spin echo with fat saturation through the brain. COMPARISON: CT, CT HEAD/BRAIN WO CON, 05/04/2022, 14:25. [facility], MR, MR HEAD/BRAIN WO CON, 08/19/2020, 8:29. FINDINGS: Image quality: Excellent. CSF spaces: Basal cisterns are patent. No extra-axial fluid collections. Ventricles are normal in size and shape. Brain: No midline shift. No intracranial bleeds or masses. No abnormal intracranial enhancement. There is cerebral volume loss for age. There is periventricular white matter chronic small vessel ischemic change. The brainstem appears normal. Diffusion-weighted images demonstrate no acute infarct. No chronic ischemic insults. Normal intravascular flow voids are present. Skull and face: Calvarial marrow is normal in signal. Orbits appear normal. Sinuses: Sinuses and mastoids appear clear. IMPRESSION: 1. No acute intracranial process. 2. Moderate atrophy and chronic microvascular ischemic changes. Dictated by: Gila Muller M.D. on 08/22/2023 at 11:53 Approved by: Gila Muller M.D. on 08/22/2023 at 11:54
== END ==
PROVIDERS: Family Provider Student in an Organized Health Care Education/Training Program; PCP Student in an Organized Health Care Education/Training Program; Referring Provider Psychiatry & Neurology Neurology; Visit Provider Psychiatry & Neurology Neurology
DX: R41.3 Other amnesia (principal); Z86.73 Personal history of transient ischemic attack (TIA), and cerebral infarction without residual deficits; I48.91 Unspecified atrial fibrillation
CPT/HCPCS: 70553; A9579

== ENCOUNTER 2023-09-14 09:00 | Emergency (ER) | payer MEDICARE, SELFPAY ==
[2022-05-13 16:09] VITALS: BMI 23.7
[2023-09-14] VITALS (23 sets, daily range): BP systolic 140–186; BP diastolic 80–116; PULSE 79–101; RESP 16–27; TEMP 36.6; O2SAT 95–98; BMI 22.9
--- NOTE | 2023-09-14 09:12 | DI.RAD.S_ITS ---
PROCEDURE: XR CHEST 1V INDICATIONS: chest pain TECHNIQUE: One view of the chest was acquired. COMPARISON: [facility], CR, XR CHEST 1 VIEW, 02/10/2023, 14:23. FINDINGS: Surgical changes and devices: Aortic valvuloplasty. Lungs and pleura: Lungs are clear. No pleural effusions or pneumothorax. Mediastinum: Mediastinal contours appear normal. Heart size is enlarged. Bones and chest wall: No suspicious bony lesions. Overlying soft tissues appear unremarkable. IMPRESSION: Stable cardiomegaly. No acute pulmonary process. Dictated by: Shashi Aranda M.D. on 09/14/2023 at 9:34 Approved by: Shashi Aranda M.D. on 09/14/2023 at 9:34
[2023-09-14 09:24] LABS: Add Manual Diff / Slide Review NO; Basophils Absolute Auto 0 /uL (0-100); Basophils Percent Auto 0.5 % (0-2); Eosinophils Absolute Auto 100 /uL (0-450); Eosinophils Percent Auto 1.9 % (2-4); Hematocrit 40.4 % (41-53); Hemoglobin 13.7 g/dL (13.5-17.5); Lymphocytes Absolute Auto 1100 /uL (1100-4500); Mean Corpuscular Hemoglobin 30.1 PG (26-34); Mean Corpuscular Volume 88.7 fL (80-100); Monocytes Absolute Auto 500 /uL (0-900); Monocytes Percent Auto 6.4 % (3-14); Neutrophils Absolute Auto 5900 /uL (1500-7000); Neutrophils Percent Auto 77.2 % (50-75); Platelet Count 157 X10^3/uL (150-400); Red Blood Cell Count 4.55 X10^6/uL (4.5-5.9); Red Cell Distribution Width 14.6 % (11.6-14.8); White Blood Cell Count 7.7 X10^3/uL (4.5-11.0)
[2023-09-14 09:34] LABS: INR 2.8 (0.9-1.3); Prothrombin Time 32.7 SECONDS (9.4-12.5)
[2023-09-14 09:37] LABS: PTT Partial Thromboplastin Tim 48 SECONDS (25.1-36.5)
[2023-09-14 09:39] LABS: Alanine Aminotransferase 22 IU/L (<50); Albumin 4.4 g/dL (3.5-5.0); Albumin Globulin Ratio 1.5 (1.0-2.8); Alkaline Phosphatase 101 U/L (38-126); Aspartate Aminotransferase 32 IU/L (17-59); BUN Creatinine Ratio 18.4 (6-22); Blood Urea Nitrogen 18 mg/dL (9-20); Calcium 9.3 mg/dL (8.4-10.2); Carbon Dioxide 26 mmol/L (22-32); Chloride 108 mmol/L (98-107); Creatine Kinase 57 U/L (55-170); Estimated Glomerular Filt Rate > 60 mL/min (>60); Glucose 116 mg/dL (80-110); HEMOLYSIS 19 (0-50); Lipase 147 U/L (23-300); Magnesium 1.8 mg/dL (1.6-2.3); Potassium 4.4 mmol/L (3.4-5.1); Sodium 140 mmol/L (137-145); Total Protein 7.4 g/dL (6.3-8.2)
[2023-09-14 09:50] LABS: Troponin I 0.018 ng/mL (0.01-0.034)
--- NOTE | 2023-09-14 10:26 | ED_ITS ---
HPI - Dizziness General Chief Complaint: Dizziness Stated Complaint: Dizziness Time Seen by Provider: 09/14/23 10:26 Source: patient and EMS Mode of arrival: EMS History of Present Illness HPI Narrative: 83-year-old male with complex history including prior TIA 2011 after abdominal hernia surgery, ongoing chronic dizziness, followed by a neurologist Dr. 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 He was doing his usual balance training exercises at home this morning approximately 630, had no difficulties with the exercises, was then sitting at his desk proximally 738 this morning, when he had sudden dizziness crease over baseline, with spinning component. No weakness or tingling sensation to his face or arm or leg. No trouble with speech or swallowing. Some slight nausea without emesis, that has resolved. No injury or trauma. . Related Data Home Medications Medication Instructions Recorded Confirmed Glucosamine 1 tab PO BID 02/08/19 05/11/22 amlodipine 5 mg tablet 5 mg PO DAILY 02/08/19 05/11/22 cyclosporine 0.05 % eye drops in a 1 drp ophthalmic (eye) DIRECTED 02/08/19 05/11/22 dropperette (Restasis) hydrocortisone 2.5 % topical 1 applic topical DIRECTED 02/08/19 05/11/22 ointment levothyroxine 25 mcg tablet See Rx Instructions .Route .COMPLEX 02/08/19 05/13/22 metoprolol tartrate 50 mg tablet 25 mg PO BID 02/08/19 05/13/22 multivitamin 1 tab PO DAILY 02/08/19 05/11/22 omega 6-loe-ptw-fish oil 1,000 mg 1 cap PO BID 02/08/19 05/11/22 (120 mg-180 mg) capsule (Fish Oil) pramipexole 0.125 mg tablet 0.125 mg PO BEDTIME 02/08/19 05/11/22 terazosin 10 mg capsule 10 mg PO BEDTIME 02/08/19 05/11/22 warfarin 5 mg tablet 5 mg PO QTUTHSU 08/18/20 05/11/22 warfarin 7.5 mg tablet 7.5 mg PO QMWFSA 08/18/20 05/13/22 Previous Rx's Medication Instructions Recorded oxycodone 5 mg tablet See Rx Instructions .Route 08/13/20 .COMPLEX PRN painful procedure #20 tabs aspirin 81 mg tablet,delayed 81 mg PO DAILY #30 tabs 08/19/20 release atorvastatin 20 mg tablet (Lipitor) 80 mg (4 x 20 mg) PO DAILY #120 08/19/20 tabs tamsulosin 0.4 mg capsule (Flomax) 0.4 mg PO DAILY #10 caps 05/15/21 ibuprofen 600 mg tablet 600 mg PO Q6H PRN pain #60 tabs 05/13/22 ondansetron HCl 4 mg tablet 4 mg PO Q8H PRN nausea and 05/13/22 vomiting #10 tabs oxycodone 5 mg tablet 5 mg PO Q4HR PRN pain #40 tabs 05/17/22 meclizine 25 mg tablet 25 mg PO TID 7 days #21 tabs 09/14/23 Allergies Allergy/AdvReac Type Severity Reaction Status Date / Time No Known Drug Allergies Allergy Verified 05/13/22 09:22 Review of Systems Review of Systems Narrative: as per HPI Patient History Medical History Bilateral inguinal hernia without obstruction or gangrene CAD (coronary artery disease) Cervical stenosis of spinal canal CVA (cerebral vascular accident) (08/2020) Depression Easy bruisability Fall (05/04/22) Fracture of head of right humerus (02/08/19) HLD (hyperlipidemia) HX: anticoagulation Hypertension Hypothyroidism Osteoarthritis Surgical History H/O vasectomy History of cataract extraction History of heart artery stent (~2003) Hx of hernia repair (08/13/20) Family History Mother Cancer Social History marital status: household members: none and other Smoking Status: Former smoker alcohol intake: never substance use type: does not use Smoking Status: Former smoker Substance Use Type: does not use Exam Narrative Exam Narrative: GENERAL: Well-developed patient, in mild distress. HEAD: Atraumatic. Normocephalic. EYES: Pupils equal round and reactive. Extraocular motions intact. No scleral icterus. No injection or drainage. ENT: Nose without bleeding, purulent drainage. Throat without erythema, tonsillar hypertrophy or exudate. Airway patent. NECK: Trachea midline. Non tender CARDIOVASCULAR: Regular rate and rhythm without murmurs, gallops, or rubs. RESPIRATORY: Clear to auscultation. Breath sounds equal bilaterally. No wheezes, rales, or rhonchi. GASTROINTESTINAL: Abdomen soft, non-tender, nondistended. EXTREMITIES: No edema or joint tenderness. BACK: Nontender without deformity or crepitance. No flank tenderness. NEURO: AOx3. Cranial nerves 2-12 unremarkable except for he wears bilateral hearing aids. Haegvp-lb-lkpk testing normal. Intact light touch to upper mid lower face, intact light touch sensation to bilateral upper extremities and bilateral lower extremities. Motor 5/5 bilateral upper extremities. Motor 5/5 bilateral lower extremities. Gait not tested SKIN: No rash or erythema of visible areas Initial Vital Signs Initial Vital Signs: Vital Signs Temperature 97.8 F 09/14/23 09:14 Pulse Rate 89 09/14/23 09:14 Respiratory Rate 17 09/14/23 09:14 Blood Pressure 186/106 H 09/14/23 09:14 Pulse Oximetry 97 09/14/23 09:14 Oxygen Delivery Method Room Air 09/14/23 09:14 Course Orders Ordered: ED Orders 09/14/23 14:43 MR head/brain wo con Stat Discontinued Medications Aspirin (Aspirin 81 Mg Chew Tab) 324 mg PO NOW ONE Stop: 09/14/23 09:13 Last Admin: 09/14/23 09:51 Dose: Not Given Documented By: JIE Meclizine HCl (Meclizine Hcl 12.5 Mg Tablet) 25 mg PO NOW ONE Stop: 09/14/23 16:55 Last Admin: 09/14/23 16:58 Dose: 25 mg Documented By: JIE Vital Signs Vital signs: Vital Signs - 8 hr 09/14/23 14:30 09/14/23 15:41 09/14/23 15:42 Temperature Pulse Rate 87 81 Respiratory Rate 21 Blood Pressure 162/83 H Pulse Oximetry 97 96 Oxygen Delivery Method 09/14/23 15:42 09/14/23 16:00 09/14/23 16:00 Temperature Pulse Rate 81 81 Respiratory Rate Blood Pressure 145/91 H Pulse Oximetry 96 95 Oxygen Delivery Method 09/14/23 16:30 09/14/23 16:30 09/14/23 17:00 Temperature Pulse Rate 81 99 H Respiratory Rate Blood Pressure 151/85 H Pulse Oximetry 95 97 Oxygen Delivery Method 09/14/23 17:01 09/14/23 17:01 09/14/23 17:29 Temperature Pulse Rate 86 89 Respiratory Rate 16 19 Blood Pressure 179/98 H Pulse Oximetry 98 98 Oxygen Delivery Method 09/14/23 17:29 09/14/23 17:30 09/14/23 18:12 Temperature 97.9 F Pulse Rate 90 96 H Respiratory Rate 20 16 Blood Pressure 179/116 H 176/111 H 176/109 H Pulse Oximetry 98 96 Oxygen Delivery Method Room Air MDM - Dizziness Lab Data Attestation: I reviewed the patient's lab results. 09/14/23 09:16 09/14/23 09:16 Labs: Lab Results 09/14/23 Range/Units 09:16 WBC 7.7 (4.5-11.0) X10^3/uL RBC 4.55 (4.5-5.9) X10^6/uL Hgb 13.7 (13.5-17.5) g/dL Hct 40.4 L (41-53) % MCV 88.7 (80-100) fL MCH 30.1 (26-34) PG MCHC 34.0 (30-36) % RDW 14.6 (11.6-14.8) % Plt Count 157 (150-400) X10^3/uL Neut % (Auto) 77.2 H (50-75) % Lymph % (Auto) 14.0 L (25-40) % [place] % (Auto) 6.4 (3-14) % Eos % (Auto) 1.9 L (2-4) % Baso % (Auto) 0.5 (0-2) % Neut # (Auto) 5900 (4006-4291) /uL Lymph # (Auto) 1100 (6559-5293) /uL [place] # (Auto) 500 (0-900) /uL Eos # (Auto) 100 (0-450) /uL Baso # (Auto) 0 (0-100) /uL PT 32.7 H (9.4-12.5) SECONDS INR 2.8 H (0.9-1.3) APTT 48 H (25.1-36.5) SECONDS Sodium 140 (137-145) mmol/L Potassium 4.4 (3.4-5.1) mmol/L Chloride 108 H (98-107) mmol/L Carbon Dioxide 26 (22-32) mmol/L BUN 18 (9-20) mg/dL Creatinine 0.98 (0.66-1.25) mg/dL Estimated GFR > 60 (>60) mL/min BUN/Creatinine Ratio 18.4 (6-22) Glucose 116 H (80-110) mg/dL Calcium 9.3 (8.4-10.2) mg/dL Magnesium 1.8 (1.6-2.3) mg/dL Total Bilirubin 1.0 (0.2-1.3) mg/dL AST 32 (17-59) IU/L ALT 22 (<50) IU/L Alkaline Phosphatase 101 (38-126) U/L Total Creatine Kinase 57 (55-170) U/L Troponin I 0.018 (0.01-0.034) ng/mL Total Protein 7.4 (6.3-8.2) g/dL Albumin 4.4 (3.5-5.0) g/dL Globulin 3.0 (1.7-4.1) g/dL Albumin/Globulin Ratio 1.5 (1.0-2.8) Lipase 147 (23-300) U/L Urine Dip Bedside Urine Glucose Negative Bedside Urine Bilirubin - Negative Bedside Urine Ketone - Negative Urine Specific [place] 1.015 Bedside Urine Occult Blood - Negative Bedside Urine pH 6.0 Bedside Urine Protein - Negative Bedside Urine Urobilinogen - Negative Bedside Urine Nitrite - Negative Bedside Urine Leukocytes - Negative Esterase Imaging Data CT scan - head: Radiologist's Impression: Close Head/Neck CTA (Signed) Ernie Greenwood - 09/14/[address] (Signed) Ernie Greenwood - 09/14/23 Chest X-Ray (Signed) Shashi Aranda - 09/14/[address] [address] [address] Scan Report Signed Patient: Patrice Penaloza MR#: [id number] : 1940 Acct:[id number] Age/Sex: 83 / M Date of Service: 09/14/23 Loc: ED Accession Number: [id number] Procedure: CT head/brain wo con Ordering Provider: José Manuel Mcclure MD PROCEDURE: CT HEAD/BRAIN WO CON INDICATIONS: dizziness 629, hx TIA 2020 TECHNIQUE: Noncontrast 4.5 mm thick angled axial sections acquired from the foramen magnum to the vertex, with coronal and sagittal reformats. For radiation dose reduction, the following was used: automated exposure control, adjustment of mA and/or kV according to patient size. COMPARISON: [facility], CT, CT HEAD/BRAIN WO CON, 05/04/2022, 14:25. [facility], MR, MR HEAD/BRAIN WO/W CON, 08/20/2023, 9:05. FINDINGS: Image quality: Diagnostic. CSF spaces: Basal cisterns are patent. No extra-axial fluid collections. The ventricles are symmetric in size and shape. Brain: No intracranial bleeds or masses. There is cerebral volume loss for age, with resultant ventricular and sulcal prominence. There are periventricular and deep white matter chronic small vessel ischemic changes. There is intracranial internal carotid artery atherosclerosis. Symmetric calcification can be seen involving the basal ganglia, which is considered to be normal for age. Skull and face: Calvarium and visualized facial bones appear intact, without suspicious lesions. Sinuses: Visualized sinuses and mastoids are clear. IMPRESSION: No acute intracranial hemorrhage is seen. No acute intracranial pathology. If there is strong clinical suspicion for an acute stroke, please consider a brain MRI for further evaluation, as it is more sensitive (assuming that there is no contraindication to MRI). Dictated by: Ernie Greenwood M.D. on 09/14/2023 at 10:12 Approved by: Ernie Greenwood M.D. on 09/14/2023 at 10:12 Chest x-ray: Radiologist's Impression: [address] [address] XRay Report Signed Patient: Patrice Penaloza MR#: [id number] : 1940 Acct:[id number] Age/Sex: 83 / M Date of Service: 09/14/23 Loc: ED Accession Number: [id number] Procedure: XR chest 1V Ordering Provider: José Manuel Mcclure MD PROCEDURE: XR CHEST 1V INDICATIONS: chest pain TECHNIQUE: One view of the chest was acquired. COMPARISON: [facility], CR, XR CHEST 1 VIEW, 02/10/2023, 14:23. FINDINGS: Surgical changes and devices: Aortic valvuloplasty. Lungs and pleura: Lungs are clear. No pleural effusions or pneumothorax. Mediastinum: Mediastinal contours appear normal. Heart size is enlarged. Bones and chest wall: No suspicious bony lesions. Overlying soft tissues appear unremarkable. IMPRESSION: Stable cardiomegaly. No acute pulmonary process. Dictated by: Shashi Aranda M.D. on 09/14/2023 at 9:34 Approved by: Shashi Aranda M.D. on 09/14/2023 at 9:34 CTA - brain/neck: Radiologist's Impression: [place] [address] CT Scan Report Signed Patient: Patrice Penaloza MR#: [id number] : 1940 Acct:[id number] Age/Sex: 83 / M Date of Service: 09/14/23 Loc: ED Accession Number: [id number] Procedure: CT angio head and neck Ordering Provider: José Manuel Mcclure MD PROCEDURE: CT ANGIO HEAD AND NECK INDICATIONS: Possible stroke symptoms TECHNIQUE: After the administration of intravenous contrast, 1 mm thick sections acquired from the aortic arch through the [place] of [place]. 3-dimensional uhvuemo-fvlmommlb-aowkmfxijq (MIP) and/or volume rendering reformats were acquired of the central intracranial vasculature and neck separately. For radiation dose reduction, the following was used: automated exposure control, adjustment of mA and/or kV according to patient size. COMPARISON: [facility], CT, CT HEAD/BRAIN WO CON, 09/14/2023, 11:07. [facility], MR, MR HEAD/BRAIN WO/W CON, 08/20/2023, 9:05. FINDINGS: Image quality: Limited by bolus timing, with venous contamination. BRAIN: CSF spaces: Ventricles are normal in size and shape. Basal cisterns are patent. No extra-axial fluid collections. Brain: No significant abnormality of the brain can be seen. Skull and face: Calvarium and facial bones appear intact, without suspicious lesions. Orbits appear normal. Sinuses: Sinuses and mastoids are clear. HEAD CT ANGIOGRAPHY: Anterior circulation: Intracranial internal carotid arteries are normal in size and flow. The flow within the paired anterior cerebral arteries is normal and symmetric. The flow within the middle cerebral arteries is normal and symmetric. The anterior communicating artery is seen. No aneurysms are seen. Posterior circulation: Visualized portions of the vertebral arteries demonstrate normal caliber, and join to form a normal appearing basilar artery. Flow within the posterior cerebral arteries is normal and symmetric. No aneurysms are seen. NECK CT ANGIOGRAPHY: Carotid system: The great vessels demonstrate a conventional anatomy as they arise from the aortic arch. The origins of the common carotid arteries appear patent. The common carotid arteries demonstrate normal caliber and courses. The bifurcation regions demonstrate atherosclerotic irregularity and calcification. There is 50% narrowing seen involving the origin of the right internal carotid artery, without a hemodynamically significant stenosis on the left. The more distal internal carotid arteries demonstrate normal course and caliber. Posterior circulation: There is a high-grade stenosis (approximately 80%) seen involving the origin of the left vertebral artery. There is poor flow within the left vertebral artery, with portions of no flow seen within the V3 segment and the inferior V4 segment. The origin of the right vertebral artery is widely patent. The flow within the right vertebral artery is within normal limits. Soft tissues: Visualized neck soft tissues demonstrate no suspicious abnormalities. Bones: No suspicious bony lesions. Visualized cervical spine appears normally aligned. Age-appropriate bony degenerative changes are seen. IMPRESSION: No significant intracranial arterial abnormality is seen. 50% narrowing seen involving the origin the right internal carotid artery. 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 Any quantitative measurements of stenosis were performed using NASCET criteria. Dictated by: Ernie Greenwood M.D. on 09/14/2023 at 12:20 Approved by: Ernie Greenwood M.D. on 09/14/2023 at 12:24 MRI Brain: Radiologist's Impression: [address] [address] Magnetic Resonance Report Signed Patient: Patrice Penaloza MR#: [id number] : 1940 Acct:[id number] Age/Sex: 83 / M Date of Service: 09/14/23 Loc: ED Accession Number: [id number] Procedure: MR head/brain wo con Ordering Provider: Harmeet Jones D.O. 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 COMPARISON: [facility], MR, MR HEAD/BRAIN WO CON, 08/19/2020, 8:29. FINDINGS: Image quality: Excellent. CSF spaces: Ventricles appear symmetric in size and shape. Basal cisterns are patent. No extra-axial fluid collections. Brain: No intracranial bleeds or mass effects. There is cerebral volume loss for age. There are periventricular and deep white matter chronic small vessel ischemic changes. Brainstem appears normal. Diffusion-weighted images show no acute infarct. No chronic ischemic insults. Normal intravascular flow voids are present. Skull and face: Calvarial bone marrow is normal in signal. Bilateral lens replacements. Otherwise, the orbits are unremarkable. Sinuses: Sinuses and mastoids are clear. IMPRESSION: No acute or subacute infarct. No acute intracranial abnormalities. Age-related global volume loss and chronic microvascular ischemic changes. Dictated by: Shashi Aranda M.D. on 09/14/2023 at 15:54 Approved by: Shashi Aranda M.D. on 09/14/2023 at 15:56 ECG Data Attestation: I personally reviewed and interpreted this ECG as follows: Interpretation: Atrial fibrillation with rate 87, no obvious ST segment elevation or depression changes. QRS 96. QTC 447. MDM Narrative Medical decision making narrative: 83-year-old male with history of chronic dizziness, dementia, TAVR procedure fall 2022, subsequent MRI done at [facility] in the last month for dementia workup, followed by neurologist Dr. Rick at [facility], now with increased dizziness at rest sitting at a chair, some improvement, idebhp-kg-ugmk testing forearm pretty well, however concern for possible posterior stroke. CT head no acute changes. Case discussed with his neurologist Dr. Rick, patient had MRI brain 3 or 4 weeks ago that showed atrophy and white matter disease nonspecific changes. Symptoms could be consistent with posterior stroke, she does recommend imaging with CTA neck vessels and had vessels, also repeat MRI study. Echocardiogram with bubble study if the MRI is positive for recent stroke. She has not aware that TAVR would be contraindication to MRI imaging, but notes the MRI was done last month, and is TAVR was placed February 2023, and he tolerated the procedure well. We will relay recommendations to Dr. Rick. CTA shows 50% narrowing right ICA, 80% high-grade stenosis left vertebral artery, without dissection changes. Case discussed with hospitalist, he would like patient to have MRI of the brain, he called MR tech, patient to have MR brain now. MRI had brain protocol. Impressions: ?No acute or subacute infarct. No acute intracranial abnormalities. Age-related global volume loss and chronic microvascular ischemic changes. ? Case discussed again with his neurologist Dr. Rick, who advises medical management for now, he is on maximum atorvastatin 80 mg daily, continue for now taking his amlodipine and metoprolol and warfarin and aspirin, could consider continuing tamsulosin, however perhaps hold terazosin medication from triage medication list for now at bedtime. Careful monitoring of blood pressure, not to let systolic blood pressure goal less than 120. Close follow up advised with regular provider. Could try course of meclizine 25 mg. Ambulation trial well tolerated, discharged home with family, improved Critical Care Time Critical Care Time Critical Care Time: Yes Total Critical Care Time: 35 Attestation: The high probability of a clinically significant, sudden or life threatening deterioration of the [cerebrovascular, neurologic, cardiovascular] system(s) required my full and direct attention, intervention and personal management. The aggregate critical care time was [35] minutes. This time is in addition to time spent performing reported procedures but includes the following: [x] Data Review and interpretation [x] Patient assessment and monitoring of vital signs [x] Documentation [x] Medication orders and management Discharge Plan Departure Patient Disposition: Home Clinical Impression: Dizziness, Vertigo, History of amyloidosis, Vertebral artery stenosis, Chronic anticoagulation Instructions: DI for Vertigo Activity Restrictions/Additional Instructions: History of prior strokes and dementia, recent MRI done as an outpatient, history of TAVR aortic valve procedure noted, with some dizziness at rest after some exercise earlier today, somewhat worse with head movements, possible peripheral labyrinthitis. However some concern for central stroke requiring further workup, after discussion with your neurologist Dr. Rick. We are able to obtain CT angiogram studies of the head and neck vessels, which did show some narrowing of the right internal carotid artery 50%, but more severe narrowing of the left vertebral artery 80%, which unfortunately is in a location anatomically where there is no surgical intervention possible. MRI brain was obtained, no acute strokes found. Case was discussed again with Dr. Rick, who thought it might be reasonable to go home on meclizine Antivert medication trial. It still could be that there are some cerebrovascular causes of symptoms, however medical management is indicated at this time. We discussed your current medication regimen, continue all your chronic medications for now but perhaps stopped the terazosin medication, and not allow the blood pressure to go less than systolic blood pressure 120. Close follow-up advised with your regular doctor in the next couple of days. Recheck symptoms and your blood pressure with your regular provider in the next couple of days. Continue taking Vindamax as directed. Return to this/nearest emergency department for any change worsening symptoms or any concerns prior Prescriptions: New meclizine 25 mg tablet 25 mg PO TID 7 Days Qty: 21 0RF No Action tamsulosin [Flomax] 0.4 mg capsule 0.4 mg PO DAILY Qty: 10 0RF ondansetron HCl 4 mg tablet 4 mg PO Q8H PRN (Reason: nausea and vomiting) Qty: 10 0RF ibuprofen 600 mg tablet 600 mg PO Q6H PRN (Reason: pain) Qty: 60 0RF oxycodone 5 mg Tablet 5 mg PO Q4HR PRN (Reason: pain) Qty: 40 0RF amlodipine 5 mg Tablet 5 mg PO DAILY levothyroxine 25 mcg Tablet See Rx Instructions .ROUTE .COMPLEX Patient Comments: home med list has 175mcg---patient thinks not updated jh 02/08 Rx Instructions: UNKNOWN AMT - PT THINKS 175 MCG metoprolol tartrate 50 mg Tablet 25 mg PO BID pramipexole 0.125 mg Tablet 0.125 mg PO BEDTIME hydrocortisone 2.5 % Ointment 1 applic TOPICAL DIRECTED cyclosporine [Restasis] 0.05 % Dropperette 1 drp OPHTHALMIC (EYE) DIRECTED multivitamin Tablet 1 tab PO DAILY terazosin 10 mg Capsule 10 mg PO BEDTIME omega 2-oal-cos-fish oil [Fish Oil] 1,000 mg (120 mg-180 mg) Capsule 1 cap PO BID Glucosamine 1 tab PO BID oxycodone 5 mg tablet See Rx Instructions .ROUTE .COMPLEX PRN (Reason: painful procedure) Qty: 20 0RF Rx Instructions: Take 1 or 2 pills every 6 hours if needed for pain. May constipate. warfarin 7.5 mg Tablet 7.5 mg PO QMWFSA Rx Instructions: 7.5 daily x 5 days, 2 days at 5mg warfarin 5 mg Tablet 5 mg PO QTUTHSU Rx Instructions: only and Tuesday atorvastatin [Lipitor] 20 mg Tablet 80 mg PO DAILY Qty: 120 0RF aspirin 81 mg Tablet,Delayed Release (Dr/Ec) 81 mg PO DAILY Qty: 30 0RF Referrals: Rosi Jesus, ZABRINA [Primary Care Provider] - Stand Alone Forms: Patient Portal/API
--- NOTE | 2023-09-14 10:45 | DI.CT.S_ITS ---
PROCEDURE: CT HEAD/BRAIN WO CON INDICATIONS: dizziness 629, hx TIA 2020 TECHNIQUE: Noncontrast 4.5 mm thick angled axial sections acquired from the foramen magnum to the vertex, with coronal and sagittal reformats. For radiation dose reduction, the following was used: automated exposure control, adjustment of mA and/or kV according to patient size. COMPARISON: [facility], CT, CT HEAD/BRAIN WO CON, 05/04/2022, 14:25. [facility], MR, MR HEAD/BRAIN WO/W CON, 08/20/2023, 9:05. FINDINGS: Image quality: Diagnostic. CSF spaces: Basal cisterns are patent. No extra-axial fluid collections. The ventricles are symmetric in size and shape. Brain: No intracranial bleeds or masses. There is cerebral volume loss for age, with resultant ventricular and sulcal prominence. There are periventricular and deep white matter chronic small vessel ischemic changes. There is intracranial internal carotid artery atherosclerosis. Symmetric calcification can be seen involving the basal ganglia, which is considered to be normal for age. Skull and face: Calvarium and visualized facial bones appear intact, without suspicious lesions. Sinuses: Visualized sinuses and mastoids are clear. IMPRESSION: No acute intracranial hemorrhage is seen. No acute intracranial pathology. If there is strong clinical suspicion for an acute stroke, please consider a brain MRI for further evaluation, as it is more sensitive (assuming that there is no contraindication to MRI). Dictated by: Ernie Greenwood M.D. on 09/14/2023 at 10:12 Approved by: Ernie Greenwood M.D. on 09/14/2023 at 10:12
--- NOTE | 2023-09-14 11:29 | PC.NURSE ---
Pt states he felt off w/ noted high blood pressure at home. Pt states symptoms began at breakfast
--- NOTE | 2023-09-14 12:57 | DI.CT.S_ITS ---
PROCEDURE: CT ANGIO HEAD AND NECK INDICATIONS: Possible stroke symptoms TECHNIQUE: After the administration of intravenous contrast, 1 mm thick sections acquired from the aortic arch through the [place] of [place]. 3-dimensional lelsnqw-hbxtynial-lbfndozkjc (MIP) and/or volume rendering reformats were acquired of the central intracranial vasculature and neck separately. For radiation dose reduction, the following was used: automated exposure control, adjustment of mA and/or kV according to patient size. COMPARISON: [facility], CT, CT HEAD/BRAIN WO CON, 09/14/2023, 11:07. [facility], MR, MR HEAD/BRAIN WO/W CON, 08/20/2023, 9:05. FINDINGS: Image quality: Limited by bolus timing, with venous contamination. BRAIN: CSF spaces: Ventricles are normal in size and shape. Basal cisterns are patent. No extra-axial fluid collections. Brain: No significant abnormality of the brain can be seen. Skull and face: Calvarium and facial bones appear intact, without suspicious lesions. Orbits appear normal. Sinuses: Sinuses and mastoids are clear. HEAD CT ANGIOGRAPHY: Anterior circulation: Intracranial internal carotid arteries are normal in size and flow. The flow within the paired anterior cerebral arteries is normal and symmetric. The flow within the middle cerebral arteries is normal and symmetric. The anterior communicating artery is seen. No aneurysms are seen. Posterior circulation: Visualized portions of the vertebral arteries demonstrate normal caliber, and join to form a normal appearing basilar artery. Flow within the posterior cerebral arteries is normal and symmetric. No aneurysms are seen. NECK CT ANGIOGRAPHY: Carotid system: The great vessels demonstrate a conventional anatomy as they arise from the aortic arch. The origins of the common carotid arteries appear patent. The common carotid arteries demonstrate normal caliber and courses. The bifurcation regions demonstrate atherosclerotic irregularity and calcification. There is 50% narrowing seen involving the origin of the right internal carotid artery, without a hemodynamically significant stenosis on the left. The more distal internal carotid arteries demonstrate normal course and caliber. Posterior circulation: There is a high-grade stenosis (approximately 80%) seen involving the origin of the left vertebral artery. There is poor flow within the left vertebral artery, with portions of no flow seen within the V3 segment and the inferior V4 segment. The origin of the right vertebral artery is widely patent. The flow within the right vertebral artery is within normal limits. Soft tissues: Visualized neck soft tissues demonstrate no suspicious abnormalities. Bones: No suspicious bony lesions. Visualized cervical spine appears normally aligned. Age-appropriate bony degenerative changes are seen. IMPRESSION: No significant intracranial arterial abnormality is seen. 50% narrowing seen involving the origin the right internal carotid artery. 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 Any quantitative measurements of stenosis were performed using NASCET criteria. Dictated by: Ernie Greenwood M.D. on 09/14/2023 at 12:20 Approved by: Ernie Greenwood M.D. on 09/14/2023 at 12:24
--- NOTE | 2023-09-14 14:43 | DI.MRI.S_ITS ---
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 COMPARISON: [facility], MR, MR HEAD/BRAIN WO CON, 08/19/2020, 8:29. FINDINGS: Image quality: Excellent. CSF spaces: Ventricles appear symmetric in size and shape. Basal cisterns are patent. No extra-axial fluid collections. Brain: No intracranial bleeds or mass effects. There is cerebral volume loss for age. There are periventricular and deep white matter chronic small vessel ischemic changes. Brainstem appears normal. Diffusion-weighted images show no acute infarct. No chronic ischemic insults. Normal intravascular flow voids are present. Skull and face: Calvarial bone marrow is normal in signal. Bilateral lens replacements. Otherwise, the orbits are unremarkable. Sinuses: Sinuses and mastoids are clear. IMPRESSION: No acute or subacute infarct. No acute intracranial abnormalities. Age-related global volume loss and chronic microvascular ischemic changes. Dictated by: Shashi Aranda M.D. on 09/14/2023 at 15:54 Approved by: Shashi Aranda M.D. on 09/14/2023 at 15:56
[2023-09-14] MEDS: MECLIZINE HCL 12.5 MG TABLET 25 MG PO (16:58)
--- NOTE | 2023-09-14 18:11 | PC.NURSE ---
No report of chest pain.
== END 2023-09-14 18:13 | disposition home or self-care (01) ==
PROVIDERS: Emergency Provider Emergency Medicine; Family Provider Student in an Organized Health Care Education/Training Program; PCP Student in an Organized Health Care Education/Training Program
DX: R42 Dizziness and giddiness (principal); I65.09 Occlusion and stenosis of unspecified vertebral artery; R07.9 Chest pain, unspecified; I10 Essential (primary) hypertension; Z86.39 Personal history of other endocrine, nutritional and metabolic disease; Z86.73 Personal history of transient ischemic attack (TIA), and cerebral infarction without residual deficits; Z79.01 Long term (current) use of anticoagulants; F03.90 Unspecified dementia, unspecified severity, without behavioral disturbance, psychotic disturbance, mood disturbance, and anxiety
CPT/HCPCS: 36415; 70450; 70496; 70498; 70551; 71045; 80053; 81003; 82550; 83690; 83735; 84484; 85025; 85610; 85730; 93005; 99284; 99285; Q9967

== ENCOUNTER → 2023-09-26 08:52 | Outpatient (CLI) | payer MEDICARE, SELFPAY ==
[2022-05-13 16:09] VITALS: BMI 23.7
--- NOTE | 2023-09-26 08:54 | DI.CT.S_ITS ---
PROCEDURE: CT SOFT TISSUE NECK W CON INDICATIONS: DYSPHONIA TECHNIQUE: After the administration of intravenous contrast, 3.0 mm axial sections acquired from the sella to the aortic arch. Additional oblique axial 3.0 mm sections acquired through the pharynx. 3 mm thick coronal and sagittal reformats were generated. For radiation dose reduction, the following was used: automated exposure control. COMPARISON: None. FINDINGS: Image quality: Excellent. Lymph nodes: No enlarged lymph nodes seen throughout the neck. Vessels: Visualized vasculature appears patent. Neck spaces: The oropharynx, nasopharynx, and pharynx demonstrate no mucosal lesions. The vocal cords, false vocal cords, pyriform sinuses, epiglottis, vallecula, and tongue base all appear normal. Extramucosal spaces appear unremarkable. Glands: The parotid and submandibular glands appear normal. Thyroid gland is unremarkable. Miscellaneous: Visualized brain and orbits appear normal. Lung apices appear clear. Superficial soft tissues appear normal. Bones: No suspicious bony lesions. Visualized sinuses and mastoids appear unremarkable. IMPRESSION: No identified abnormal mass lesions. Dictated by: Gila Muller M.D. on 09/26/2023 at 14:30 Approved by: Gila Muller M.D. on 09/26/2023 at 14:31
== END ==
LOC: CT 08:53
PROVIDERS: Family Provider Student in an Organized Health Care Education/Training Program; PCP Student in an Organized Health Care Education/Training Program; Referring Provider Family Medicine; Visit Provider Family Medicine
DX: R49.0 Dysphonia (principal)
CPT/HCPCS: 70491; Q9967

== ENCOUNTER → 2025-01-24 09:23 | Outpatient (CLI) | payer MEDICARE, SELFPAY ==
[2022-05-13 16:09] VITALS: BMI 23.7
--- NOTE | 2025-01-24 09:25 | DI.RAD.S_ITS ---
PROCEDURE: XR DEXA AXIAL SKELETON INDICATIONS: OSTEOPOROSIS SCREENING COMPARISON: [facility], [place], XR DEXA AXIAL SKELETON, 06/08/2022, 10:56. FINDINGS: Lumbar Spine L1-2 L3-4 comparison to prior: Bone mineral density 0.921 g/cm2, T score -1.1, compared to -1.2.. Left Femoral Neck: Bone mineral density 0.634 g/cm2, T score -1.9, compared to -2.0 within approximate 2% bone mineral density gain. Left Hip: Bone mineral density 0.664 g/cm2, T score -2.3, compared to -1.9 demonstrating approximate 7% bone mineral density loss. Fracture Risk Calculation (when applicable): 10-year fracture risk of a major osteoporotic fracture 8.4 percent and of a hip fracture 3.8 percent. (T score greater or equal to -1.0 to: NORMAL) (T score from -1.1 to -2.4: OSTEOPENIA) (T score less than or equal to -2.5: OSTEOPOROSIS) IMPRESSION: Severe osteopenia in the left hip with notable bone mineral density loss compared to prior exam. Follow-up guidelines as follows: Osteoporosis: Consider a repeat DEXA and Vertebral Fracture Assessment (VFA) exam in 2 years or sooner if medically necessary, to reassess this patient's status. Osteopenia: Consider a repeat DEXA in 2-3 years to reassess this patient's status, or if there is a new clinical indication. Normal: Consider a repeat DEXA in 5 years or sooner, or if there is a new clinical indication. All treatment decisions require clinical judgment and consideration of individual patient factors, including patient preferences, comorbidities, previous drug use, risk factors not captured in the FRAX model (e.g., frailty, falls, vitamin D deficiency, increased bone turnover, interval significant decline in bone density ) and possible under- or over-estimation of fracture risk by FRAX. In addition, the NOF Guide recommends that FDA-approved medical therapies be considered in postmenopausal women and men age >= 50 years with a: * Hip or vertebral (clinical or morphometric) fracture * T-score of <=-2.5 at the spine or hip * Ten-year fracture probability by FRAX of >= 3% for hip fracture or >=20% for major osteoporotic fracture. Dictated by: Gila Muller M.D. on 01/24/2025 at 16:21 Approved by: Gila Muller M.D. on 01/24/2025 at 16:23
== END ==
LOC: RAD 09:24
PROVIDERS: Family Provider Student in an Organized Health Care Education/Training Program; PCP Physician Assistant; Referring Provider Physician Assistant; Visit Provider Physician Assistant
DX: Z13.820 Encounter for screening for osteoporosis (principal); M81.0 Age-related osteoporosis without current pathological fracture; M85.89 Other specified disorders of bone density and structure, multiple sites
CPT/HCPCS: 77080